=== PATIENT | female | born 1950 | race Caucasian/White ===

== ENCOUNTER 2018-02-26 18:03 | Emergency (ER) | payer BC ==
[~2018-02-26] VITALS: Ht 167.6 cm; Wt 66.7 kg
[~2018-02-26 18:03] MED LIST: MULT-506 PO; PANT40TA PO; PRMVC
[2018-02-26 18:07] VITALS: TEMP 36.7; Ht 167.6 cm; Wt 66.7 kg
[2018-02-26] MEDS ORDERED: LIDOCAINE/EPINEPHRINE 1% 20 ML VIAL INFIL ONE (18:45)
--- NOTE | 2018-02-26 19:24 | DIAGNOSTIC IMAGING REPORT ---
HEAD CT NONCONTRAST CT DOSE: 537.48 mGy.cm HISTORY: head injury TECHNIQUE: Multiaxial CT images of the head were performed without the use of intravenous contrast. Automated exposure control was utilized for this study. A dose lowering technique was utilized adhering to the principles of ALARA. Comparison: None. Findings: The paranasal sinuses and mastoid air cells are clear. The calvarium and skull base are intact. There is no mass, hematoma, midline shift, acute infarct. White matter hypodensity is nonspecific but suggestive of microvascular ischemic change. The ventricles and sulci demonstrate mild age-related involutional changes. Frontal scalp laceration. Impression: No acute intracranial abnormality. Frontal scalp laceration. Electronically signed by: Juan Wolf M.D. 02/26/2018 7:23 PM Dictated Date/Time: 02/26/2018 7:20 PM
--- NOTE | 2018-02-26 20:47 | EMERGENCY ROOM VISIT NOTE ---
History First contact with patient: 18:14 Chief Complaint: LACERATION/CUT (SUT/DERMABOND) Stated Complaint: FOREHEAD LACERATION Nursing Triage Summary: pt reports tripped on step in kitchen lac to forehead History of Present Illness The patient is a 68 year old female who presents to the Emergency Room with complaints of a laceration to her forehead. The patient states that she was walking out of the kitchen and tripped and turned her ankle, causing her to fall. She struck her head on the edge of a table. There was no loss of consciousness. She denies headache, lightheadedness, dizziness or vomiting. She does state that she feels a little "woozy" at this time. Her tetanus is up- to-date. She sustained a laceration to the forehead. She reports pain in the area of the laceration which is sharp and rated a 4/10. She does not take any anticoagulants. Review of Systems A complete 10 point review of systems was reviewed with the patient with pertinent positives and negatives as per history of present illness. All else were negative. Past Medical/Surgical History Medical Problems: (1) No significant active problems Social History Smoking Status: Never Smoker Alcohol Use: occasionally Housing Status: lives with family Current/Historical Medications Scheduled Multivitamin (Multivitamin), 1 TAB PO DAILY Pantoprazole (Protonix), 40 MG PO DAILY Miscellaneous Medications Estrogens, Conjugated Vag (Premarin Vag *) Physical Exam Vital Signs Date Time Temp Pulse Resp B/P (MAP) Pulse Ox O2 Delivery O2 Flow Rate FiO2 02/26/18 20:49 76 18 161/115 96 Room Air 02/26/18 18:07 36.7 85 20 200/107 100 Room Air Physical Exam VITALS: Vitals are noted on the nurse's note and reviewed by myself. Hypertensive. GENERAL: This is a 68-year-old female, in no acute distress, nondiaphoretic, well-developed well-nourished. SKIN: There is a 3.5 cm laceration to the center of the forehead. There is mild oozing bleeding from the wound. HEAD: Laceration as noted above. Otherwise normocephalic atraumatic. EARS: External auditory canals clear, tympanic membranes pearly grier without erythema or effusion bilaterally. No hemotympanum. EYES: Pupils equal round and reactive to light and accommodation. Extraocular movements intact. MOUTH: Mucous membranes moist. NECK: Supple without nuchal rigidity. Cervical spine is nontender. HEART: Regular rate and rhythm without murmurs gallops or rubs. LUNGS: Clear to auscultation bilaterally without wheezes, rales or rhonchi. MUSCULOSKELETAL: Strength 5/5 throughout. NEURO: Patient was alert and oriented to person place and time. No focal neurological deficits. Medical Decision & Procedures ER Provider Diagnostic Interpretation: HEAD CT NONCONTRAST CT DOSE: 537.48 mGy.cm HISTORY: head injury TECHNIQUE: Multiaxial CT images of the head were performed without the use of intravenous contrast. Automated exposure control was utilized for this study. A dose lowering technique was utilized adhering to the principles of ALARA. Comparison: None. Findings: The paranasal sinuses and mastoid air cells are clear. The calvarium and skull base are intact. There is no mass, hematoma, midline shift, acute infarct. White matter hypodensity is nonspecific but suggestive of microvascular ischemic change. The ventricles and sulci demonstrate mild age-related involutional changes. Frontal scalp laceration. Impression: No acute intracranial abnormality. Frontal scalp laceration. Procedure Verbal consent was obtained to perform the procedure. Using sterile technique the wound was cleaned with Betadine. The area was sterilely draped. 4 ml of 1 % buffered lidocaine with epinephrine was used to anesthetize the forehead laceration. Once the patient was anesthetized, the wound was copiously irrigated under pressure with sterile saline. The wound was explored and there were no deep structures injured such as tendons, bone, or significant blood vessels. The laceration was repaired using 10 simple interrupted 6-0 nylon sutures with the wound edges being well approximated. The patient tolerated the procedure well. Hemostasis was achieved. The area was cleaned with sterile saline and dressed with bacitracin ointment and bandage. Medical Decision Differential diagnosis includes concussion, epidural hematoma, subdural hematoma , subarachnoid hemorrhage, among others. The patient was evaluated as above. CT of the head was performed and was negative. Laceration repair was performed as noted in the procedure section as above. Wound care instructions were discussed with the patient. She will follow-up with her PCP. Patient was hypertensive throughout the day today, most likely situational but was advised to follow-up this week for blood pressure recheck. She verbalized understanding of my assessment and treatment plan and was discharged home in good condition. The patient was independently evaluated by Dr. Puga, ED attending physician, who agreed with my assessment and treatment plan. Head Trauma GCS Score: 15 Medication Reconcilliation Current Medication List: was personally reviewed by me Blood Pressure Screening Patient's blood pressure: Elevated blood pressure Blood pressure disposition: Referred to PCP Impression Primary Impression: Facial laceration Additional Impression: Closed head injury Departure Information Dispostion Home / Self-Care Condition GOOD Referrals Ramiro Alberto D.O. (PCP) Patient Instructions My [facility] Additional Instructions You have received 10 sutures on your forehead. These sutures are NOT dissolvable and WILL need to be removed by a health care provider in 5-7 days. You can return to the Emergency Department or contact your Primary Care Provider to have the sutures removed. Proper wound care is essential for adequate wound healing and infection prevention. You can shower and clean the wound with soap and water. Do not scour over the wound, pat dry with a towel. Do not submerse the wound (i.e. bathe or dish wash) until the sutures have been removed. You can use an antibiotic ointment with a dressing over the wound for the next 3-4 days. After this time you may leave the wound dry and open to the air. If crust develops over the wound you can use a Q-tip to apply a 1:1 peroxide:water solution to clean the wound. Look for signs of infection of the wound including: increased pain, swelling, foul discharge, streaking, or increased temperature. If any of these are noticed you should return to the Emergency Department for further assessment and treatment. As with any laceration you may have received nerve damage to the surrounding tissues. This damage may or may not be permanent. You should keep the area covered with sunscreen for the first 6 months to 1 year when at risk for exposure to help minimize scarring. You can also use scar reducing creams or Vitamin E oil to help minimize scarring. For pain control, you can use the following [id number] medicines (if >12 yo): - Regular strength (325mg/tab) Tylenol (acetaminophen) 2 tabs every 4-6 hours as needed. Do not exceed 12 tablets in a 24 hour period. Avoid taking more than 4 grams (4000 mg) of Tylenol per day. This includes any other sources of acetaminophen you may take on a regular basis. - Regular strength (200 mg/tab) Advil (ibuprofen) 1-2 tabs every 4-6 hours as needed. Do not exceed a dose of 3200 mg per day. Return to the emergency department if your symptoms worsen despite treatment course outlined above. Problem Qualifiers Primary Impression: Facial laceration Encounter type: initial encounter Qualified Codes: S01.81XA - Laceration without foreign body of other part of head, initial encounter Additional Impression: Closed head injury Encounter type: initial encounter Qualified Codes: S09.90XA - Unspecified injury of head, initial encounter
[2018-02-26 20:49] VITALS: BP 161/115; PULSE 76; O2SAT 96
== END 2018-02-26 20:59 | disposition home or self-care (01) ==
LOC: C.EDB 18:04 → C.EDD 20:59
DX: S01.81XA Laceration without foreign body of other part of head, initial encounter (principal); W19.XXXA Unspecified fall, initial encounter; W22.8XXA Striking against or struck by other objects, initial encounter; R03.0 Elevated blood-pressure reading, without diagnosis of hypertension; R40.2412 Glasgow coma scale score 13-15, at arrival to emergency department

== ENCOUNTER 2024-01-25 17:08 | Inpatient (IN) ==
[2024-01-25 17:13] LABS: Partial Thromboplastin Ratio 0.9; Partial Thromboplastin Time 25 Seconds (21-31); Prothrombin Time 11.2 Seconds (9.0-12.0)
[2024-01-25 17:16] LABS: Basophils # (auto) 0.05 K/uL (0.00-0.20); Basophils % (auto) 0.6 %; Eosinophils # (auto) 0.05 K/uL (0.00-0.50); Eosinophils % (auto) 0.6 %; Hematocrit (blood only) 38.1 % (37.0-47.0); Hemoglobin 13.3 g/dl (12.0-16.0); Immature Granulocytes # (auto) 0.03 K/uL (0.01-0.20); Immature Granulocytes % (auto) 0.3 %; Lymphocytes % (auto) 27.5 %; Mean Corpuscular Hemoglobin 29.6 pg (25.0-34.0); Mean Corpuscular Hgb Conc 34.9 g/dL (32.0-36.0); Mean Corpuscular Volume 84.7 fL (80.0-100.0); Mean Platelet Volume 10.6 fL (9.4-12.4); Monocytes % (auto) 6.6 %; Neutrophils # (auto) 5.86 K/uL (1.40-6.50); Neutrophils % (auto) 64.4 %; Platelet Count 329 K/uL (130-400); RDW Coefficient of Variation 11.9 % (11.5-14.5); RDW Standard Deviation 36.1 fL (36.4-46.3); White Blood Count 9.09 K/ul (4.8-10.8)
--- NOTE | 2024-01-25 17:27 | XRay Report ---
PORTABLE AP CHEST RADIOGRAPH CLINICAL HISTORY: Chest pain. COMPARISON STUDY: Chest CT performed earlier today. FINDINGS: Lung volumes are normal. There is no consolidation. No pneumothorax or pleural effusion is present. There is subtle interstitial thickening without overt pulmonary edema. Cardiac size is madhuri l. Mediastinal contours are normal. IMPRESSION: No acute cardiopulmonary findings. ACT 112: Negative or not required by law. Electronically signed by: Antonio Menendez M.D. 01/25/2024 4:23 PM
[2024-01-25] MEDS: AMIODARONE HCL INJ 50 MG/ML 3 ML VIAL IV ONE (17:32)
[2024-01-25] MEDS: AMIODARONE 150MG / 100ML D5W IV ONE (17:33)
[2024-01-25] MEDS: MAGNESIUM SULFATE 1GM / D5W BAG IV ONE (17:33)
[2024-01-25 17:34] LABS: Albumin Level 3.6 gm/dl (3.4-5.0); Blood Urea Nitrogen 18 mg/dl (6-23); Calcium 8.8 mg/dl (8.6-10.3); Chloride 109 mmol/L (98-107); Glucose 155 mg/dl (70-99(Fasting)); Potassium 3.6 mmol/L (3.5-5.1); Sodium 139 mmol/L (136-145); Troponin I High Sensitivity 10.1 pg/ml (0-14)
[2024-01-25] MEDS: OPTIRAY 350 500ml IV ONE (17:36)
[2024-01-25] MEDS: AMIODARONE 360MG / 200ML D5W IV ONE (17:37)
--- NOTE | 2024-01-25 17:42 | History & Physical Report ---
Date of Service January 25, 2024 Assessment & Plan (1) Atrial fibrillation with RVR: Plan: This is a 73-year-old female with PMH of hyperlipidemia, GERD, recent palpitations with outpatient ZIO monitoring demonstrating frequent runs of paroxysmal supraventricular tachycardia who presents with lightheadedness and found to have atrial fibrillation with RVR. Recently seen by Dr. Hopper in clinic, ZIO monitoring demonstrating frequent runs of paroxysmal supraventricular tachycardia, started on Lopressor 25mg PO BID last week Presenting with HR in 110-150s, initial ECG showing atrial fibrillation with rvr CXR without acute cardiopulmonary abnormality, unremarkable CTA chest of the abdominal aorta and its major branches. No acute infectious or inflammatory findings are identified in the abdomen or pelvis Was hypotensive with SBP in 70-80s initially Given amiodarone bolus and drip with improved HR and clinical status HR in 110s during evaluation Continue amio drip Monitor on tele Obtain 2D echo TSH WNL last month, Mag pending Routine cardiology consult Anticoagulate with IV heparin, chadvasc score of 3 given gender and age Repleting Mg and K with goal to keep >2 and >4 respectively (2) GERD (gastroesophageal reflux disease): Plan: Chronic, stable. Continue PPI, H2 dahlia (3) Abnormal CT of the abdomen: Plan: CTA abd/pelvis showing a 8.5 cm heterogeneous mass centered in the right perineal soft tissues as detailed above. This causes mass effect on the adjacent vagina, and significantly effaces/displaces the adjacent rectum/anus. Neoplasm is the diagnosis of exclusion Routine obgyn consult placed (4) HLD (hyperlipidemia): Plan: Chronic, stable. Continue statin DVT Ppx: IV heparin Code status: FULL PCP: Jessica Dispo: admitted to PCU Patient seen in collaboration with Dr. Moreno. Please see addendum. I spent a total of 75 minutes coordinating, documenting, and providing care for this patient excluding time spent in the performance of separately billed services. History of Present Illness Chief Complaint: Symptomatic tachycardia Primary Care Provider: Dimas Lopez MD This is a 73-year-old female with PMH of hyperlipidemia, GERD, recent palpitations and other medical problems listed below who presents with episode of tachycardia earlier today. Has been struggling with intermittent episodes of tachycardia over the past 9 months and was seen by cardiology on 01/16 with outpatient ZIO monitoring demonstrating frequent runs of paroxysmal supraventricular tachycardia. States she has been on Lopressor 25 mg twice daily for the past week and had an echo ordered but the study has not yet been done. Had an episode last Monday where her heart was racing but has felt back to baseline since then until around lunchtime today, when she was in her kitchen making lunch and became dizzy. Went to lie down which did not relieve symptoms and started to feel generally weak and unable to catch her breath. brought her in to ED for further evaluation and while in waiting room, developed nausea and near syncope. Was evaluated around this time with EKG showing A-fib with RVR at 117 bpm. Given amiodarone bolus and started on drip with improved clinical status. Now feeling much better and able to catch her breath. Feelings of palpitations have improve and nausea resolved. No F/C, headache, CP, vomiting, abdominal pain, dysuria, diarrhea or constipation. Recent TSH within range at 1.49 on 12/21/23. Allergies Allergy/AdvReac Type Severity Reaction Status Date / Time codeine Allergy Unknown CAN'T Verified 01/25/24 17:59 REMEMBER Home Medications Medication Instructions Recorded Confirmed Type Prolia 60 mg subcut Q6M 01/25/24 01/25/24 History calcium carbonate 600 mg-vitamin 1 tab PO DAILY 01/25/24 01/25/24 History D3 10 mcg (400 unit) tablet (Calcium 600 + D(3)) cholecalciferol (vitamin D3) 25 25 mcg PO DAILY 01/25/24 01/25/24 History mcg (1,000 unit) chewable tablet (Vitamin D3) famotidine 20 mg tablet 20 mg PO HS 01/25/24 01/25/24 History metoprolol tartrate 25 mg tablet 25 mg PO BID 01/25/24 01/25/24 History multivitamin 1 tab PO DAILY 01/25/24 01/25/24 History pantoprazole 40 mg tablet,delayed 40 mg PO DAILY 01/25/24 01/25/24 History release rosuvastatin 5 mg tablet 5 mg PO DAILY 01/25/24 01/25/24 History Past Med/Surg History Medical History (Updated 01/25/24 @ 19:33 by Anna Mejía MD) GERD (gastroesophageal reflux disease) HLD (hyperlipidemia) Surgical History (Updated 01/25/24 @ 17:46 by Lucero Castillo PA-C) H/O: hysterectomy Family History (Updated 01/25/24 @ 17:47 by Lucero Castillo PA-C) Other Cancer Diabetes Social History (Updated 01/25/24 @ 17:47 by Lucero Castillo PA-C) Smoking Status: Never smoker Hx Alcohol Use: No Hx Substance Use: No Review of Systems Review of Systems: At least ten systems reviewed and negative except as noted in the HPI. Physical Exam Physical Exam: Please see Dr. Moreno' addendum for physical exam. Results & Data Results & Data Laboratory Results Short CBC 01/25/24 Range/Units 14:16 WBC 9.09 (4.8-10.8) K/ul Hgb 13.3 (12.0-16.0) g/dl Hct 38.1 (37.0-47.0) % Plt Count 329 (130-400) K/uL BMP 01/25/24 14:16 Sodium 139 Potassium 3.6 Chloride 109 H Carbon Dioxide 16 L BUN 18 Creatinine 0.88 Glucose 155 H Calcium 8.8 Liver Function 01/25/24 Range/Units 14:16 Total Bilirubin 0.5 (0.2-1.0) mg/dl AST 23 (13-39) U/L ALT 22 (7-52) U/L Alkaline Phosphatase 61 (34-104) U/L Albumin 3.6 (3.4-5.0) gm/dl Diagnostic Findings Abdomen/Pelvis CTA 01/25/24 00:00 Mai Quintana CTA abd/pel CT ANGIOGRAM OF THE ABDOMEN AND PELVIS CLINICAL HISTORY: Generalized weakness. COMPARISON STUDY: No priors. TECHNIQUE: Following the IV administration of 114 cc of Optiray 320, CT angiogram of the abdomen and pelvis was performed from the lung bases the proximal femora. Images are reviewed in the axial, sagittal, and coronal planes. 3-D MIPS images are created and assessed. IV contrast was administered without complication. A dose lowering technique was utilized adhering to the principles of ALARA. The examination is degraded by streak artifact from the arms which could not be elevated above the abdomen. FINDINGS: Lower chest: The heart is normal in size and without pericardial effusion. There is bibasilar scarring/atelectasis. The lung bases are otherwise clear. Liver: The contrast-enhanced liver is normal in size, contour, and attenuation. There is no intrahepatic biliary ductal dilatation. Gallbladder: Unremarkable. Spleen: Normal in size and attenuation noting heterogeneous arterial phase enhancement. Pancreas: Unremarkable. Adrenal glands: Unremarkable. Kidneys: The contrast enhanced kidneys are normal in size and without hydronephrosis. The kidneys enhance symmetrically. A retroaortic left renal vein is incidentally noted. Abdominal aorta and iliac arteries: The abdominal aorta is normal in course and caliber noting mild to moderate atherosclerotic calcification. The abdominal aorta is widely patent. No dissection is seen. The iliac arteries are widely patent bilaterally. Major branches of the abdominal aorta: The celiac trunk, superior mesenteric, and inferior mesenteric arteries are widely patent. Hepatic arterial anatomy is conventional. The splenic artery is patent. Single bilateral renal arteries are widely patent. Bowel: There is mild to moderate colonic diverticulosis without CT evidence of acute diverticulitis. No bowel obstruction is seen.. The appendix is well- visualized and normal. Peritoneum: There is no intraperitoneal free air or abdominal ascites. Lymphadenopathy: None. Pelvic viscera: The bladder is normal as visualized. The uterus is surgically absent. There is an approximately 8 x 8.5 x 6.5 cm soft tissue mass centered in the right perineum seen on axial image #384. This causes anterior displacement of the vagina, and also causes mass effect on the adjacent rectum/anus. Skeletal structures: The skeletal structures are osteopenic. Mild lumbosacral spondylosis is observed. No destructive bony lesions are seen. IMPRESSION: 1. Unremarkable CT angiogram of the abdominal aorta and its major branches. 2. No acute infectious or inflammatory findings are identified in the abdomen or pelvis. 3. There is approximately 8.5 cm heterogeneous mass centered in the right perineal soft tissues as detailed above. This causes mass effect on the adjacent vagina, and significantly effaces/displaces the adjacent rectum/anus. Neoplasm is the diagnosis of exclusion. Oncological follow-up will be required. 4. Additional findings as above. ACT 112: Positive. There are findings on this exam that require communication between the performing entity and the patient following Patient Test Result Information Act ([place] Act 112) guidelines. Electronically signed by: Zana Choi M.D. 01/25/2024 4:05 PM Chest CTA 01/25/24 00:00 CHEST CTA for AORTIC DISSECTION CT DOSE: HISTORY: Chest and back pain. Weakness. TECHNIQUE: Multiaxial CT images of the chest were performed both before and after the intravenous administration of contrast to evaluate the aorta. 3D/MIP images were also obtained. Sagittal and coronal reformations were also reviewed. A dose lowering technique was utilized adhering to the principles of ALARA. COMPARISON STUDY: None. FINDINGS: Noncontrast imaging through the chest shows no evidence for an intramural hematoma within the thoracic aorta. The thoracic aorta is normal in course and caliber with no evidence for a dissection. The main pulmonary arteries are patent. The heart is mildly enlarged. No pleural or pericardial effusions. There is a 1 cm left thyroid nodule. This does not meet CT criteria for follow-up. Abdominal structures will be reported on the same day abdomen and pelvis CT. Normal caliber esophagus. No mediastinal or hilar lymphadenopathy. Minimal anterior wedging within the mid thoracic spine vertebral body which is likely chronic. No acute fractures identified within the chest. No pneumothorax. The central airways are patent. Mild dependent changes seen within the lungs posteriorly. No focal lung consolidations to suggest a pneumonia. No evidence for pulmonary edema. IMPRESSION: No evidence for an aortic dissection. ACT 112: Negative or not required by law. Electronically signed by: Juan Wolf M.D. 01/25/2024 4:07 PM Chest X-Ray 01/25/24 00:00 PORTABLE AP CHEST RADIOGRAPH CLINICAL HISTORY: Chest pain. COMPARISON STUDY: Chest CT performed earlier today. FINDINGS: Lung volumes are normal. There is no consolidation. No pneumothorax or pleural effusion is present. There is subtle interstitial thickening without overt pulmonary edema. Cardiac size is normal. Mediastinal contours are normal. IMPRESSION: No acute cardiopulmonary findings. ACT 112: Negative or not required by law. Electronically signed by: Antonio Menendez M.D. 01/25/2024 4:23 PM Supervising Physician Co-Signing Physician Notes I have seen and discussed the case with the collaborating advanced practitioner. I agree with the above H&P. I have reviewed and confirmed the patients medical history, the findings on physical examination, and the patients diagnosis and treatment plan with Jonathan LUA and agree with the information documented. In short, Ms Quintana is a 73 year old woman with history of HLD, GERD who is admitted for atrial fibrillation with RVR. Patient hypotensive on arrival to 70s with rates in 160s-180s, responded to amio bolus. Recently evaluated as op for palpitations, started on metoprolol 25mg BID; ZIO patch with SVT. Patient reports feeling much improved since arrival and denies any acute concerns on exam after amiodarone has been administered. Denies any recent illness (URI x 3 weeks earlier) Active--walks 1-3 miles daily. Nonsmoker. GENERAL APPEARANCE: AxOx4, generally well-appearing female, no acute distress. HEENT: NC, AT. MMM. EOMI, clear conjunctiva, oropharynx clear. NECK: Supple without lymphadenopathy. No stiffness or restricted ROM. HEART: irregularly irregular rates in 110s-130s on exam LUNGS: CTAB, moving air well. No crackles or wheezes are heard. ABDOMEN: Soft, nontender, nondistended with good bowel sounds heard. BACK: No CVAT, no obvious deformity. EXTREMITIES: Without cyanosis, clubbing or edema. NEUROLOGICAL: Grossly nonfocal. Alert and oriented, moving all 4 extremities. CN not formally tested but appear grossly intact. Skin: Warm and dry without any rash. #Paroxsymal SVT/Atrial Fibrillation with RVR -Amiodarone drip at this time PCU admission Cards consult Start heparin 2/2 [id number] 3 Age/Female ECHO Rest of plan as above Metoprolol continue, room to titrate per cards TSH in am (normal in 12/2022), low suspicion for infection, lyme serology ordered for am Rest of plan as above I spent a total of 35 minutes coordinating, documenting, and providing care for this patient excluding time spent in the performance of separately billed services. All of the aforementioned completed outside of collaborating with the assigned advanced practitioner for a full treatment plan. I have reviewed the advanced practitioner's documentation, and I agree with, and take responsibility for the plan of care
--- NOTE | 2024-01-25 17:42 | CT Scan Report ---
CHEST CTA for AORTIC DISSECTION CT DOSE: HISTORY: Chest and back pain. Weakness. TECHNIQUE: Multiaxial CT images of the chest were performed both before and after the intravenous adm inistration of contrast to evaluate the aorta. 3D/MIP images were also obtained. Sagittal and coronal reformations were also reviewed. A dose lowering technique was utilized adhering to the principles of ALARA. COMPARISON STUDY: None. FINDINGS: Noncontrast imaging through the chest shows no evidence for an intramural hematoma within t he thoracic aorta. The thoracic aorta is normal in course and caliber with no evidence for a dissecti on. The main pulmonary arteries are patent. The heart is mildly enlarged. No pleural or pericardial e ffusions. There is a 1 cm left thyroid nodule. This does not meet CT criteria for follow-up. Abdomina l structures will be reported on the same day abdomen and pelvis CT. Normal caliber esophagus. No med iastinal or hilar lymphadenopathy. Minimal anterior wedging within the mid thoracic spine vertebral b nicole which is likely chronic. No acute fractures identified within the chest. No pneumothorax. The lory tral airways are patent. Mild dependent changes seen within the lungs posteriorly. No focal lung cons olidations to suggest a pneumonia. No evidence for pulmonary edema. IMPRESSION: No evidence for an aortic dissection. ACT 112: Negative or not required by law. Electronically signed by: Juan Wolf M.D. 01/25/2024 4:07 PM
[2024-01-25 18:20] LABS: Anion Gap 15 (3-11); Bilirubin,Total 0.4 mg/dl (0.2-1.0); Carbon Dioxide 15 mmol/L (21-32); Magnesium 1.8 mg/dl (1.7-2.4)
[2024-01-25 18:25] LABS: Alanine Aminotransferase 23 U/L (7-52); Albumin Globulin Ratio 1.5 (0.9-2); Alkaline Phosphatase 60 U/L (34-104); Aspartate Aminotransferase 25 U/L (13-39); BUN Creatinine Ratio 19.8 (10-20); Est GFR (African American) 71.5 ml/min; Est GFR (Non-African American) 61.7 ml/min; Globulin 2.4 gm/dl (2.5-4.0)
[2024-01-25] MEDS ORDERED: Heparin IV Adult Wt-Based Standard *NO* INITIAL Bolus Protocol IV SCH (18:46)
--- NOTE | 2024-01-25 18:54 | Emergency Department Note ---
Impression & Plan Atrial fibrillation with RVR, Chest pain ED Provider Note NAME: KAREN QUINTANA AGE: 73 SEX: F : 1950 ARRIVES VIA: Walk-In INFORMANT: Patient, ED PROVIDER(S): Anna Mejía MD CHIEF COMPLAINT:Palpitations, confusion HPI: This is a 73-year-old female with history of arrhythmia, GERD presenting for palpitations and confusion. Patient has had an episode that began around 11:30 AM. Today feeling her heart racing. She then presented here. Patient with her who provides most of the history as patient is currently confused. States that she has had previous episodes of palpitations and was started on metoprolol over the past 3 days. She never had an episode this severe. She is currently diaphoretic, confused and complaining of chest palpitations, and diarrhea. ROS: See above HPI for pertinent positives & negatives. A total of 10 systems reviewed and were otherwise negative. PAST MEDICAL HISTORY: See Below PAST SURGICAL HISTORY: See Below FAMILY HISTORY: See Below SOCIAL HISTORY: See Below HOME MEDICATIONS: See Below ALLERGIES: See Below VITALS: See Below PHYSICAL EXAMINATION: General: Diaphoretic, pale Head: Normocephalic and atraumatic Eyes: Normal inspection, extraocular muscles intact Ear, nose, throat: Normal external exam Neck: Normal range of motion Respiratory: lungs clear to auscultation bilaterally Cardiovascular: Irregularly irregular GI: soft, nontender, no guarding or rebound Extremities: nontender, moves all extremities, 2+ pulses all extremity Neuro: Awake, no focal deficits, Skin: Warm, dry, and intact MEDICAL DECISION MAKING: This is a 73-year-old female with history of arrhythmia, GERD presented with palpitations/confusion. -Able to take outside records which does reveal patient possible has a paroxysmal SVT -Currently patient is A-fib RVR. She is acutely-ill, in extremis. Pale, diaphoretic, hypotensive and tachycardic -Discussed there is a have to get 2 large-bore IVs placed in the patient. Patient placed on crash cart, with pads placed -Patient given 2 L normal saline run wide open -Discussed with about risks and benefits of electrocardioversion. Current symptoms started 1130 patient has had episodes of palpitations the past few days including on Monday, 2 days ago. -With unclear history of initial atrial fibrillation, consider thromboembolic risk at this time -Patient blood pressure is improving after fluid resuscitation. Now 90s/100 systolic. Due to concern of thrombolic risk, will do amiodarone. After a bolus of amiodarone, patient's heart rate is significantly decreasing from 160s down to 70s-100s. Patient blood pressure rising and now 110s systolic. -Patient appearing more comfortable, less diaphoretic and pale -At this time will defer electrocardioversion -Patient currently on amiodarone drip at this time, canceled order for etomidate -Patient reassessed multiple times and after amiodarone drip, now back to her baseline mental status, appearing well, talking on the phone, no longer confused or lethargic -Patient taken to CT scan to rule out PE/dissection due to her significant pain, confusion -CTs of the chest abdomen pelvis revealed n under Dr. Helen Moreno o acute process to explain current symptoms -Patient admitted to hospitalist service for A-fib RVR on amiodarone Differential diagnosis: A-fib with RVR, PE, dissection ER treatment provided: See below Diagnostics interpreted by me: ECG: ECG independently interpreted by me with A-fib with RVR, rate of 104, normal axis, normal RI, normal QRS, normal QTc, no ST segment elevations consistent with STEMI criteria occasional PVC Cardiac Monitoring: An order was placed for continuous cardiac monitoring. The monitor shows a rate of 160 with atrial fibrillation rhythm. Laboratory studies: As stated above and show below. Imaging studies: See below. Critical Care Note: I have personally spent 60 minutes of critical care time in the direct management of this patient. This includes bedside care, interpretation of diagnostic studies, and testing, discussion with consultants, patient, and family members, and other required patient management activities. This 60 minutes is in excess of all separately billable procedures. Past Med/Surg History Medical History (Updated 01/25/24 @ 19:33 by Anna Mejía MD) GERD (gastroesophageal reflux disease) HLD (hyperlipidemia) Surgical History (Updated 01/25/24 @ 17:46 by Lucero Castillo PA-C) H/O: hysterectomy Family History (Updated 01/25/24 @ 17:47 by Lucero Castillo PA-C) Other Cancer Diabetes Social History (Updated 01/25/24 @ 17:47 by Lucero Castillo PA-C) Smoking Status: Never smoker Hx Alcohol Use: No Hx Substance Use: No Allergies Allergies Allergy/AdvReac Type Severity Reaction Status Date / Time codeine Allergy Unknown CAN'T Verified 01/25/24 17:59 REMEMBER Home Meds Home Medications Medication Instructions Recorded Confirmed Prolia 60 mg subcut Q6M 01/25/24 01/25/24 calcium carbonate 600 mg-vitamin 1 tab PO DAILY 01/25/24 01/25/24 D3 10 mcg (400 unit) tablet (Calcium 600 + D(3)) cholecalciferol (vitamin D3) 25 25 mcg PO DAILY 01/25/24 01/25/24 mcg (1,000 unit) chewable tablet (Vitamin D3) famotidine 20 mg tablet 20 mg PO HS 01/25/24 01/25/24 metoprolol tartrate 25 mg tablet 25 mg PO BID 01/25/24 01/25/24 multivitamin 1 tab PO DAILY 01/25/24 01/25/24 pantoprazole 40 mg tablet,delayed 40 mg PO DAILY 01/25/24 01/25/24 release rosuvastatin 5 mg tablet 5 mg PO DAILY 01/25/24 01/25/24 Results & Data (ED) Vital Signs Vital Signs - 24 hr 01/25/24 18:08 Pulse Rate 102 H Laboratory Data 01/25/24 14:16 01/25/24 14:16 Lab Results 01/25/24 Range/Units 14:16 WBC 9.09 (4.8-10.8) K/ul RBC 4.50 (4.20-5.40) M/uL Hgb 13.3 (12.0-16.0) g/dl Hct 38.1 (37.0-47.0) % MCV 84.7 (80.0-100.0) fL MCH 29.6 (25.0-34.0) pg MCHC 34.9 (32.0-36.0) g/dL RDW Std Deviation 36.1 L (36.4-46.3) fL RDW Coeff of Maggie 11.9 (11.5-14.5) % Plt Count 329 (130-400) K/uL MPV 10.6 (9.4-12.4) fL Immature Gran % (Auto) 0.3 % Neut % (Auto) 64.4 % Lymph % (Auto) 27.5 % Morehouse % (Auto) 6.6 % Eos % (Auto) 0.6 % Baso % (Auto) 0.6 % Neut # (Auto) 5.86 (1.40-6.50) K/uL Lymph # (Auto) 2.50 (1.20-3.40) K/uL Morehouse # (Auto) 0.60 H (0.11-0.59) K/uL Eos # (Auto) 0.05 (0.00-0.50) K/uL Baso # (Auto) 0.05 (0.00-0.20) K/uL Immature Gran # (Auto) 0.03 (0.01-0.20) K/uL PT 11.2 (9.0-12.0) Seconds INR 1.0 (0.9-1.1) APTT 25 (21-31) Seconds PTT Ratio 0.9 Sodium 139 (136-145) mmol/L Potassium 3.6 (3.5-5.1) mmol/L Chloride 109 H (98-107) mmol/L Carbon Dioxide 15 L (21-32) mmol/L Anion Gap 15 H (3-11) BUN 18 (6-23) mg/dl Creatinine 0.91 (0.6-1.2) mg/dl Est Cr Clr Drug Dosing Not Reportable Est GFR ( Amer) 71.5 ml/min Est GFR (Non-Af Amer) 61.7 ml/min BUN/Creatinine Ratio 19.8 (10-20) Glucose 155 H (70-99(Fasting)) mg/dl Calcium 8.8 (8.6-10.3) mg/dl Magnesium 1.8 (1.7-2.4) mg/dl Total Bilirubin 0.4 (0.2-1.0) mg/dl AST 25 (13-39) U/L ALT 23 (7-52) U/L Alkaline Phosphatase 60 (34-104) U/L Troponin I High Sens 10.1 (0-14) pg/ml Total Protein 6.0 (6.0-8.3) gm/dl Albumin 3.6 (3.4-5.0) gm/dl Globulin 2.4 L (2.5-4.0) gm/dl Albumin/Globulin Ratio 1.5 (0.9-2) Administered Medications Discontinued Medications Amiodarone HCl/Dextrose (Amiodarone 150mg / 100ml D5w) Confirm Administered Dose 150 mg IV .STK-MED ONE Stop: 01/25/24 14:40 Last Admin: 01/25/24 17:33 Dose: 360 mg Documented By: KAILEE Co-signed By: JOSE MANUEL Amiodarone HCl/Dextrose (Amiodarone 360mg / 200ml D5w) Confirm Administered Dose 360 mg IV .STK-MED ONE Stop: 01/25/24 14:45 Last Admin: 01/25/24 17:37 Dose: 360 mg Documented By: KAILEE Co-signed By: JOSE MANUEL Amiodarone HCl (Amiodarone Hcl Inj 50 Mg/Ml 3 Ml Vial) Confirm Administered Dose 150 mg IV .STK-MED ONE Stop: 01/25/24 14:09 Last Admin: 01/25/24 17:32 Dose: 150 mg Documented By: KAILEE Co-signed By: JOSE MANUEL Ioversol (Optiray 350 500ml) 114 ml IV ONCE ONE Stop: 01/25/24 17:36 Last Admin: 01/25/24 17:36 Dose: 114 ml Documented By: SHAVONNE Magnesium Sulfate/Dextrose (Magnesium Sulfate 1gm / D5w Bag) Confirm Administered Dose 2 gm IV .ST-MED ONE Stop: 01/25/24 14:28 Last Admin: 01/25/24 17:33 Dose: 2 gm Documented By: KAILEE Imaging Data Radiologist's Impression: Abdomen/Pelvis CTA 01/25/24 00:00 Karen Quintana CTA abd/pel CT ANGIOGRAM OF THE ABDOMEN AND PELVIS CLINICAL HISTORY: Generalized weakness. COMPARISON STUDY: No priors. TECHNIQUE: Following the IV administration of 114 cc of Optiray 320, CT angiogram of the abdomen and pelvis was performed from the lung bases the proximal femora. Images are reviewed in the axial, sagittal, and coronal planes. 3-D MIPS images are created and assessed. IV contrast was administered without complication. A dose lowering technique was utilized adhering to the principles of ALARA. The examination is degraded by streak artifact from the arms which could not be elevated above the abdomen. FINDINGS: Lower chest: The heart is normal in size and without pericardial effusion. There is bibasilar scarring/atelectasis. The lung bases are otherwise clear. Liver: The contrast-enhanced liver is normal in size, contour, and attenuation. There is no intrahepatic biliary ductal dilatation. Gallbladder: Unremarkable. Spleen: Normal in size and attenuation noting heterogeneous arterial phase enhancement. Pancreas: Unremarkable. Adrenal glands: Unremarkable. Kidneys: The contrast enhanced kidneys are normal in size and without hydronephrosis. The kidneys enhance symmetrically. A retroaortic left renal vein is incidentally noted. Abdominal aorta and iliac arteries: The abdominal aorta is normal in course and caliber noting mild to moderate atherosclerotic calcification. The abdominal aorta is widely patent. No dissection is seen. The iliac arteries are widely patent bilaterally. Major branches of the abdominal aorta: The celiac trunk, superior mesenteric, and inferior mesenteric arteries are widely patent. Hepatic arterial anatomy is conventional. The splenic artery is patent. Single bilateral renal arteries are widely patent. Bowel: There is mild to moderate colonic diverticulosis without CT evidence of acute diverticulitis. No bowel obstruction is seen.. The appendix is well- visualized and normal. Peritoneum: There is no intraperitoneal free air or abdominal ascites. Lymphadenopathy: None. Pelvic viscera: The bladder is normal as visualized. The uterus is surgically absent. There is an approximately 8 x 8.5 x 6.5 cm soft tissue mass centered in the right perineum seen on axial image #384. This causes anterior displacement of the vagina, and also causes mass effect on the adjacent rectum/anus. Skeletal structures: The skeletal structures are osteopenic. Mild lumbosacral spondylosis is observed. No destructive bony lesions are seen. IMPRESSION: 1. Unremarkable CT angiogram of the abdominal aorta and its major branches. 2. No acute infectious or inflammatory findings are identified in the abdomen or pelvis. 3. There is approximately 8.5 cm heterogeneous mass centered in the right perineal soft tissues as detailed above. This causes mass effect on the adjacent vagina, and significantly effaces/displaces the adjacent rectum/anus. Neoplasm is the diagnosis of exclusion. Oncological follow-up will be required. 4. Additional findings as above. ACT 112: Positive. There are findings on this exam that require communication between the performing entity and the patient following Patient Test Result Information Act ([place] Act 112) guidelines. Electronically signed by: Zana Choi M.D. 01/25/2024 4:05 PM Chest CTA 01/25/24 00:00 CHEST CTA for AORTIC DISSECTION CT DOSE: HISTORY: Chest and back pain. Weakness. TECHNIQUE: Multiaxial CT images of the chest were performed both before and after the intravenous administration of contrast to evaluate the aorta. 3D/MIP images were also obtained. Sagittal and coronal reformations were also reviewed. A dose lowering technique was utilized adhering to the principles of ALARA. COMPARISON STUDY: None. FINDINGS: Noncontrast imaging through the chest shows no evidence for an intramural hematoma within the thoracic aorta. The thoracic aorta is normal in course and caliber with no evidence for a dissection. The main pulmonary arteries are patent. The heart is mildly enlarged. No pleural or pericardial effusions. There is a 1 cm left thyroid nodule. This does not meet CT criteria for follow-up. Abdominal structures will be reported on the same day abdomen and pelvis CT. Normal caliber esophagus. No mediastinal or hilar lymphadenopathy. Minimal anterior wedging within the mid thoracic spine vertebral body which is likely chronic. No acute fractures identified within the chest. No pneumothorax. The central airways are patent. Mild dependent changes seen within the lungs posteriorly. No focal lung consolidations to suggest a pneumonia. No evidence for pulmonary edema. IMPRESSION: No evidence for an aortic dissection. ACT 112: Negative or not required by law. Electronically signed by: Juan Wolf M.D. 01/25/2024 4:07 PM Chest X-Ray 01/25/24 00:00 PORTABLE AP CHEST RADIOGRAPH CLINICAL HISTORY: Chest pain. COMPARISON STUDY: Chest CT performed earlier today. FINDINGS: Lung volumes are normal. There is no consolidation. No pneumothorax or pleural effusion is present. There is subtle interstitial thickening without overt pulmonary edema. Cardiac size is normal. Mediastinal contours are normal. IMPRESSION: No acute cardiopulmonary findings. ACT 112: Negative or not required by law. Electronically signed by: Antonio Menendez M.D. 01/25/2024 4:23 PM Discharge Plan Visit Data Chief Complaint: Chest Pain Stated Complaint: CHEST PAIN ED Provider: Anna Mejía Discharge Problem: Atrial fibrillation with RVR, Chest pain Forms Stand Alone Forms: My [employer] Prescriptions Prescriptions: No Action multivitamin Tablet 1 tab PO DAILY famotidine 20 mg tablet 20 mg PO HS pantoprazole 40 mg Tablet,Delayed Release (Dr/Ec) 40 mg PO DAILY rosuvastatin 5 mg tablet 5 mg PO DAILY metoprolol tartrate 25 mg tablet 25 mg PO BID calcium carbonate-vitamin D3 [Calcium 600 + D(3)] 600 mg-10 mcg (400 unit) Tablet 1 tab PO DAILY cholecalciferol (vitamin D3) [Vitamin D3] 25 mcg (1,000 unit) Tablet,Chewable 25 mcg PO DAILY Prolia 60 mg subcut Q6M Referrals Referrals: Dimas Lopez MD [Primary Care Provider] -
[2024-01-25] MEDS: HEPARIN SODIUM/DEXTROSE 25,000 UNITS/500 ML BAG IV SCH (19:52)
[2024-01-25] MEDS: MAGNESIUM SULFATE / D5W 1 GM/100 ML BAG IV ONE (19:52)
[2024-01-25] MEDS: POTASSIUM CHLORIDE CRTAB 20 MEQ TABCR PO STA (19:52)
[2024-01-25] MEDS: FAMOTIDINE 20 MG TAB PO SCH (21:46)
[2024-01-25] MEDS ORDERED: ACETAMINOPHEN 325 MG TAB PO PRN (22:19)
[2024-01-25] MEDS ORDERED: ONDANSETRON INJ 2 MG/ML 2 ML VIAL IV PRN (22:19)
[2024-01-25] MEDS ORDERED: POLYETHYLENE (MIRALAX) 17 GM PACK PO PRN (22:19)
[2024-01-25] MEDS: METOPROLOL TARTRATE 25 MG TAB PO SCH (22:43)
[2024-01-26 05:56] LABS: Hematocrit (blood only) 42.3 % (37.0-47.0); Hemoglobin 14.5 g/dl (12.0-16.0); Mean Corpuscular Hgb Conc 34.3 g/dL (32.0-36.0); Mean Corpuscular Volume 87.4 fL (80.0-100.0); Mean Platelet Volume 10.5 fL (9.4-12.4); Platelet Count 300 K/uL (130-400); RDW Coefficient of Variation 12.1 % (11.5-14.5); RDW Standard Deviation 38.7 fL (36.4-46.3); Red Blood Count 4.84 M/uL (4.20-5.40); White Blood Count 13.03 K/ul (4.8-10.8)
--- NOTE | 2024-01-26 06:09 | Communication Note ---
Date of Service: January 26, 2024 Patient with early a.m. chest pain not relieved by nitroglycerin. Discomfort similar to indigestion at home as per patient EKG as per my interpretation rate 105, A-fib, normal axis, T wave abnormalities septal leads AP Atypical chest pain Facilitate antacid regimen Check troponin with a.m. blood work
[2024-01-26 06:10] LABS: Calcium 8.8 mg/dl (8.6-10.3); Creatinine Clr Calc Pharmacy 56.9 ml/min; Est GFR (African American) 83.6 ml/min; Est GFR (Non-African American) 72.1 ml/min; Potassium 3.8 mmol/L (3.5-5.1)
[2024-01-26] MEDS: NITROGLYCERIN SL 0.4 MG/TAB TAB SL STA (06:18)
[2024-01-26 06:25] LABS: Thyroid Stimulating Hormone 1.499 uIu/ml (0.300-4.500)
[2024-01-26 07:00] LABS: Troponin I High Sensitivity 336.3 pg/ml (0-14)
--- NOTE | 2024-01-26 07:30 | Hospitalist Progress Note ---
Date of Service January 26, 2024 Assessment & Plan (1) Atrial fibrillation with RVR: Plan: This is a 73-year-old female with PMH of hyperlipidemia, GERD, recent palpitations with outpatient ZIO monitoring demonstrating frequent runs of paroxysmal supraventricular tachycardia who presents with lightheadedness and found to have atrial fibrillation with RVR. Atrial fibrillation with RVR Recently seen by Dr. Hopper in clinic, ZIO monitoring demonstrating frequent runs of paroxysmal supraventricular tachycardia, started on Lopressor 25mg PO BID last week Presenting with HR in 110-150s, initial ECG showing atrial fibrillation with rvr CXR without acute cardiopulmonary abnormality, unremarkable CTA chest of the abdominal aorta and its major branches. No acute infectious or inflammatory findings are identified in the abdomen or pelvis Was hypotensive with SBP in 70-80s initially Given amiodarone bolus and drip with improved HR and clinical status HR in 110s during evaluation Continue amio drip Monitor on tele Obtain 2D echo TSH WNL last month, Mag pending Routine cardiology consult Anticoagulate with IV heparin, chadvasc score of 3 given gender and age Repleting Mg and K with goal to keep >2 and >4 respectively 01/25 Continue amiodarone drip, heparin drip Continue metoprolol 25 mg p.o. twice daily Possible cardioversion on Monday if patient does not convert to sinus rhythm through the Possible demand ischemia secondary to above Troponin 336 No chest pain (2) GERD (gastroesophageal reflux disease): Plan: Chronic, stable Continue PPI, H2 blockers (3) Abnormal CT of the abdomen: Plan: CTA abd/pelvis showing a 8.5 cm heterogeneous mass centered in the right perineal soft tissues as detailed above. This causes mass effect on the adjacent vagina, and significantly effaces/displaces the adjacent rectum/anus. Neoplasm is the diagnosis of exclusion Routine obgyn consult placed 01/25 Awaiting further recommendations from HYDRAULIC OPERATOR service (4) HLD (hyperlipidemia): Plan: Chronic, stable. Continue statin DVT Ppx: IV heparin Code status: FULL PCP: Jessica Dispo: Anticipate discharge to home when medically stable Admission and Anticipated Discharge Date Admission Date: January 25, 2024 Subjective Follow-up for A-fib, etc. Seen resting in bed, comfortable, not in distress States she feels okay overall No chest pain, palpitation, dizziness, shortness of breath No abdominal, pelvic pain No bleeding No other new symptoms Review of Systems Review of Systems: all noted and negative except for above Physical Exam Physical Exam: General- oriented x 3, not in distress, speaks in sentences with no effort or accessory muscle use Eyes- anicteric Neck- no JVD Lungs- clear breath sounds bilaterally, no rales/wheezes Heart- normal rate, irregularly irregular rhythm; no murmurs Abdomen- normal bowel sounds, nondistended, soft, nontender Extremities- no pretibial edema, no calf tenderness Neuro- alert, oriented x 3; no gross focal neurologic deficits Skin- warm & dry Results & Data Results & Data Vital Signs (Past 12 Hours) Vital Signs Temp Pulse Resp BP Pulse Ox O2 Del Method 01/26/24 05:51 99 H 18 133/85 98 Room Air 01/26/24 02:47 36.9 C 77 18 131/81 98 Room Air 01/25/24 22:52 36.6 C 98 H 18 122/71 98 Room Air 01/25/24 22:19 36.6 C 96 H 20 122/71 98 Room Air 01/25/24 20:57 100 H 16 119/68 98 01/25/24 19:34 113 H 16 137/101 H 96 Room Air
--- NOTE | 2024-01-26 08:09 | Cardiology Consultation ---
Date of Consultation January 26, 2024 Assessment & Plan (1) Atrial fibrillation with RVR: (2) Elevated troponin: Plan IMPRESSION 73 year old female with longstanding history of palpitations secondary to PSVT. Presented in new onset AFIB with RVR, highly symptomatic with hypotension, chest pain, and confusion. Symptom improvement with beta dahlia and amiodarone. EKG maintaining AFIB with borderline rate control. Elevated troponin in the setting of demand. Low likelihood for ACS. PLAN AFIB RVR: -Patient received IV amiodarone bolus in ED, but gtt was never started. Will start IV amiodarone now. Will give 1mg/min x6 hours then reduce to 0.5 mg/min continuous. Daily EKGs to assess QTC. -Continue metoprolol tartrate 25 mg BID -Continue Heparin gtt for stroke prevention. Chadsvasc score of 3 (age 1, female). -K goal of 4.0 and mag of 2.0-- replace as necessary. -Echo pending. -Continue to monitor on Tele. -Pending clinical course, consider DCCV. Case discussed with Dr. Hopper. Further recommendations pending his assessment/echo results. I spent a total of 60 minutes on the date of service in preparation, delivery, and documentation of the care provided to the patient excluding any time spent in the performance of separately billed services. LAURENCE Saenz Department of Cardiology, [facility] This chart was completed in part utilizing Speech Voice Recognition Software. Grammatical errors, random word insertions, pronoun errors, and incomplete sentences are an occasional consequence of this system due to software limitations, ambient noise, and hardware issues. Any formal questions or concern s about the content, text, or information contained within the body of this dictation should be directly addressed to the provider for clarification. Supervising Physician Co-Signing Physician Notes I have reviewed the advance practitioner's documentation, and I agree with, and take responsibility for the plan of care. 73-year-old female presented to the emergency department with symptomatic paroxysmal atrial fibrillation with rapid ventricular response. Heart rate improved and feeling better since admission. Received a bolus of IV amiodarone in the ER, however, IV infusion was not initiated. Denies chest discomfort or heaviness currently. Elevated high-sensitivity troponin noted. Bedside echocardiogram reveals borderline hyperdynamic LV function without regional wall motion abnormality. PE: VSS. General: NAD, awake alert and orient x 3. Heart: Irregular rhythm. Normal S1-S2. No murmur. Lungs: Clear bilateral, no rales, rhonchi, wheeze. Extremities: No edema. A/P: 73-year-old female admitted with paroxysmal atrial fibrillation and rapid ventricular response. Left ventricular systolic function borderline hyperdynamic at baseline. Findings similar to prior echocardiogram performed in 2015. Agree with IV amiodarone and intravenous heparin infusion at this time. Continue metoprolol tartrate 25 mg twice daily. Supplement electrolytes as indicated to maintain serum potassium greater than 4.0, and serum magnesium greater than 2.0. If patient does not convert to sinus rhythm with medical therapy over the weekend, consider external direct-current cardioversion on 01/29/2024. Findings and recommendations discussed with patient. She is agreeable to plan of care. Thank you for allow me to participate in the care of your patient. I spent a total of 30 minutes on the date of service in preparation, delivery, and documentation of the care provided to this patient, excluding any time spent in the performance of separately billed services. History of Present Illness Reason for Consultation: Atrial fibrillation with RVR Requesting Physician: Farhat Jacobson Attending Physician: Alexandr Hurley MD History of Present Illness 73-year-old female who presented to [facility] emergency department last evening due to tachy-palpitations that started at 12:15pm on 01/25/2024. In the emergency department she became confused, diaphoretic, and complained of chest discomfort. EKG/telemetry revealed atrial fibrillation with RVR. She was hypotensive. She was given 2 L of normal saline with mild improvement in her blood pressures, 90s to 100 systolic. She was also given a bolus of amiodarone lowering the heart rates from 160s to 70s-100s. Blood pressure improved with this. Emergent DCCV deferred. Amiodarone gtt was ordered but never started. CTA of the chest: No PE or dissection. Heparin gtt started. ([id number] or 3, age & female) Of note, patient recently reestablished with Dr. Hopper on 01/17/2024 at this time she had concerns regarding palpitations, dizziness, and flushing. She has a longstanding history of sensed SVT. Most recent ZIO monitor dated 12/2023 demonstrated frequent runs of PSVT. Patient was started on metoprolol tartrate 25 mg twice daily. Tele: AFIB 90-100s Labs: Renal function and electrolytes stable. High-sensitivity troponin 10 >> 336. EKG this am showing AFIB RVR, 104 bpm. Qtc 447 ms. Upon entrance into the room patient resting in bed. No chest pain, mild shortness of breath with exertion. Mild palpitations. No dizziness, syncope or near syncope. Having "throbbing" hand sensations which were worse yesterday afternoon. No orthopnea, PND, or increased lower extremity edema. No fever, chills, cough, hematochezia, melena, or hemoptysis. Primary outpatient claims vice president: Dr. 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 Echo without wall motion abnormalities and a preserved EF 10/2015 Dyslipidemia Allergies Allergy/AdvReac Type Severity Reaction Status Date / Time codeine Allergy Unknown CAN'T Verified 01/25/24 17:59 REMEMBER Home Medications Medication Instructions Recorded Confirmed Type Prolia 60 mg subcut Q6M 01/25/24 01/25/24 History calcium carbonate 600 mg-vitamin 1 tab PO DAILY 01/25/24 01/25/24 History D3 10 mcg (400 unit) tablet (Calcium 600 + D(3)) cholecalciferol (vitamin D3) 25 25 mcg PO DAILY 01/25/24 01/25/24 History mcg (1,000 unit) chewable tablet (Vitamin D3) famotidine 20 mg tablet 20 mg PO HS 01/25/24 01/25/24 History metoprolol tartrate 25 mg tablet 25 mg PO BID 01/25/24 01/25/24 History multivitamin 1 tab PO DAILY 01/25/24 01/25/24 History pantoprazole 40 mg tablet,delayed 40 mg PO DAILY 01/25/24 01/25/24 History release rosuvastatin 5 mg tablet 5 mg PO DAILY 01/25/24 01/25/24 History Patient History Medical History (Updated 01/26/24 @ 08:16 by LAURENCE Mckeon) GERD (gastroesophageal reflux disease) HLD (hyperlipidemia) Surgical History (Updated 01/25/24 @ 17:46 by Lucero Castillo PA-C) H/O: hysterectomy Family History (Updated 01/25/24 @ 17:47 by Lucero Castillo PA-C) Other Cancer Diabetes Social History (Updated 01/25/24 @ 17:47 by Lucero Castillo PA-C) Smoking Status: Never smoker Hx Alcohol Use: Yes Alcohol type: wine Hx Substance Use: No Preferred Language: Macedonian Communication Ability: Effective Com Writer Required: No Beliefs That Will Affect Care: None Current Living Situation: Spouse Other Information That Helps Us Care for You: No Feels Safe at Home: Yes Safety Concerns: Feels Safe At This Time Assistive Devices: None Assistive Devices Comment: retainers, glasses Review of Systems Review of Systems: All systems reviewed & are unremarkable except as noted in HPI & below Physical Exam Constitutional: WD/WN, vitals as above no acute distress Eyes: PERRL, conjunctivae normal, anicteric sclerae ENMT: external ear and nose normal, oropharynx normal Neck: normal visual inspection and trachea midline Respiratory: normal respiratory effort, lungs clear to auscultation Cardiovascular: Rate/Rhythm: + tachycardic and + irregularly irregular Heart Sounds: normal S1, normal S2 and + murmur (soft systolic murmur ) Vessels: normal peripheral pulses; no JVD Extremities: no edema Gastrointestinal (Abdomen): normal bowel sounds, soft, nontender, no hepatosplenomegaly Skin: no rashes, warm and dry Neurologic: PERRL, EOMI, accommodation nl, no face palsy, no dysarthria Psychiatric: A+Ox3, euthymic affect Results & Data Vital Signs (Past 12 Hours) Vital Signs Temp Pulse Resp BP Pulse Ox O2 Del Method 01/26/24 07:16 36.5 C 102 H 18 118/69 96 Room Air 01/26/24 05:51 99 H 18 133/85 98 Room Air 01/26/24 02:47 36.9 C 77 18 131/81 98 Room Air 01/25/24 22:52 36.6 C 98 H 18 122/71 98 Room Air 01/25/24 22:19 36.6 C 96 H 20 122/71 98 Room Air 01/25/24 20:57 100 H 16 119/68 98 Laboratory Results Cardiac Enzymes 01/25/24 01/26/24 Range/Units 14:16 05:38 AST 25 (13-39) U/L Troponin I High Sens 10.1 336.3 H* D (0-14) pg/ml Coagulation 01/25/24 Range/Units 14:16 PT 11.2 (9.0-12.0) Seconds APTT 25 (21-31) Seconds CBC 01/25/24 01/26/24 Range/Units 14:16 05:38 WBC 9.09 13.03 H (4.8-10.8) K/ul RBC 4.50 4.84 (4.20-5.40) M/uL Hgb 13.3 14.5 (12.0-16.0) g/dl Hct 38.1 42.3 (37.0-47.0) % Plt Count 329 300 (130-400) K/uL Neut # (Auto) 5.86 (1.40-6.50) K/uL Lymph # (Auto) 2.50 (1.20-3.40) K/uL Bureau # (Auto) 0.60 H (0.11-0.59) K/uL Eos # (Auto) 0.05 (0.00-0.50) K/uL Baso # (Auto) 0.05 (0.00-0.20) K/uL Comprehensive Metabolic Panel 01/25/24 01/26/24 Range/Units 14:16 05:38 Sodium 139 141 (136-145) mmol/L Potassium 3.6 3.8 (3.5-5.1) mmol/L Chloride 109 H 108 H (98-107) mmol/L Carbon Dioxide 15 L 26 (21-32) mmol/L BUN 18 12 (6-23) mg/dl Creatinine 0.91 0.80 (0.6-1.2) mg/dl Glucose 155 H 93 (70-99(Fasting)) mg/dl Calcium 8.8 8.8 (8.6-10.3) mg/dl AST 25 (13-39) U/L ALT 23 (7-52) U/L Alkaline Phosphatase 60 (34-104) U/L Total Protein 6.0 (6.0-8.3) gm/dl Albumin 3.6 (3.4-5.0) gm/dl Intake and Output 01/25/24 01/26/24 01/26/24 22:59 06:59 14:59 Intake Total 100 / 240.6 140.6 / 240.6 78.217 / 78.217 Output Total 550 / 550 Balance 100 / -309.4 -409.4 / -309.4 78.217 / 78.217 Intake: IV 100 / 240.6 140.6 / 240.6 78.217 / 78.217 Heparin Sodium/Dextrose 25,000 140.6 / 140.6 78.217 / 78.217 units In 500 ml @ 950 UNITS/HR 19 mls/hr IV .Q24H [facility] Rx#: [id number] Magnesium Sulfate / D5w 1 gm In 100 / 100 100 ml @ 50 mls/hr IV ONE ONE Rx#:[id number] Output: Urine Amount (Catheter) 550 / 550 External 550 / 550 Other: Other Intake Source npo Weight 64.3 kg 64.3 kg Weight Measurement Method Built in [facility] Diagnostic Findings Zio monitor December 19, 2023: Patient had a min HR of 52 bpm, max HR of 200 bpm, and avg HR of 85 bpm. Predominant underlying rhythm was Sinus Rhythm. 79 Supraventricular Tachycardia runs occurred, the run with the fastest interval lasting 14 beats with a max rate of 200 bpm, the longest lasting 14.7 secs with an avg rate of 125 bpm. Isolated SVEs were occasional (2.2%, 34579), SVE Couplets were rare (<1.0%, 417), and SVE Triplets were rare (<1.0%, 113). Isolated VEs were rare (<1.0%, 54), VE Couplets were rare (<1.0%, 14), and VE Triplets were rare (<1.0%, 1). Inverted QRS complexes possibly due to inverted placement of device. No patient marker or diary entry submitted Impression: Sinus rhythm, average rate 85 beats per minute with occasional premature atrial beats and multiple short runs of nonsustained supraventricular tachycardia
[2024-01-26] MEDS: FAMOTIDINE 20MG IV PUSH 20 MG/5 ML SYR IV STA (08:29)
[2024-01-26] MEDS: POTASSIUM CHLORIDE 20 MEQ in LACTATED RINGER'S 1,000 ML IV ONE (08:32)
[2024-01-26] MEDS: ETOMIDATE 2 MG/ML 20 ML VIAL IV ONE (08:46)
[2024-01-26] MEDS: PANTOprazole 40 MG TAB PO STA (08:47)
[2024-01-26] MEDS: POTASSIUM CHLORIDE CRTAB 20 MEQ TABCR PO STA (08:47)
[2024-01-26] MEDS: MULTIVITAMIN TAB PO SCH (08:49)
[2024-01-26] MEDS: CHOLECALCIFEROL 25 MCG (1000 UNITS) TAB PO SCH (08:49)
[2024-01-26] MEDS: ROSUVASTATIN CALCIUM 5 MG TAB PO SCH (08:50)
[2024-01-26] MEDS ORDERED: PANTOprazole 40 MG TAB PO SCH (09:00)
[2024-01-26] MEDS ORDERED: CALCIUM 600MG + VIT D 400 IU TAB PO SCH (09:00)
[2024-01-26] MEDS ORDERED: 0.2 MICRON FILTER SET 1 EACH IV ONE (09:41)
[2024-01-26] MEDS: AMIODARONE / D5W 360 MG/200 ML BAG IV ONE (11:09)
--- NOTE | 2024-01-26 11:57 | Electrocardiogram Report ---
Test Reason : Blood Pressure : / mmHG Vent. Rate : 117 BPM Atrial Rate : 000 BPM P-R Int : 000 ms QRS Dur : 078 ms QT Int : 278 ms P-R-T Axes : 000 083 189 degrees QTc Int : 387 ms Atrial fibrillation with rapid ventricular response Marked ST abnormality, possible inferior subendocardial injury Abnormal ECG Confirmed by Bony Orellana ([id number]) on 01/26/2024 11:57:28 AM Referred By: REFERRED SELF Confirmed By:Inocente Orellana
--- NOTE | 2024-01-26 12:01 | Electrocardiogram Report ---
Test Reason : Blood Pressure : / mmHG Vent. Rate : 104 BPM Atrial Rate : 000 BPM P-R Int : 000 ms QRS Dur : 078 ms QT Int : 350 ms P-R-T Axes : 000 089 074 degrees QTc Int : 460 ms Atrial fibrillation with rapid ventricular response with premature ventricular or aberrantly conducte d complexes Abnormal ECG When compared with ECG of 25-JAN-2024 14:04, (unconfirmed) ST no longer depressed in Lateral leads T wave inversion no longer evident in Inferior leads T wave inversion no longer evident in Lateral leads Confirmed by Bony Orellana ([id number]) on 01/26/2024 12:00:37 PM Referred By: REFERRED SELF Confirmed By:Inocente Orellana
--- NOTE | 2024-01-26 12:06 | Electrocardiogram Report ---
Test Reason : Blood Pressure : / mmHG Vent. Rate : 104 BPM Atrial Rate : 075 BPM P-R Int : 000 ms QRS Dur : 070 ms QT Int : 340 ms P-R-T Axes : 000 080 081 degrees QTc Int : 447 ms Atrial fibrillation with rapid ventricular response Abnormal ECG When compared with ECG of 25-JAN-2024 14:24, (unconfirmed) No significant change was found Confirmed by Bony Orellana ([id number]) on 01/26/2024 12:06:18 PM Referred By: REFERRED SELF Confirmed By:Inocente Orellana
--- OUTSIDE RECORDS SUMMARY | 2024-01-26 13:34 | External Medical Summary | Summary of Care ---
Author Name Unknown Organization [facility] Address [address] [place] [address] Phone [phone] Care Team Providers Care Assembler Convertible Top Name Role Phone Dimas Lopez MD Primary Care Provider + Reason for Visit * Reason Onset Date Comments Test Results 01/17/2024 Encounter Details Date Type Department Care Team (Late st Contact Info) Description 01/17/2024 Telephone General Internal Medicine [facility] [address] [facility] [place] [id number] Dimas Lopez MD [address] [place], [place] [id number] Test Results Allergies Active Allergy Reactions Criticality Noted Date Comments Codeine Other (Please comment) 02/01/2018 Cough syrup with codeine "felt like I was drowning" "couldn't breathe" Dust Other (Please comment) 07/23/2015 sneezing documented as of this encounter (statuses as of 01/18/2024) Medications Medication Sig Dispensed Refills Start Date End Date Status MULTIVITAMINS PO TABS 0 0 07/27/2007 Active CALCIUM 600-D 600-400 MG-UNIT PO TABS one tablet by mouth daily 0 07/16/2012 Active Acetaminophen 325 MG Oral Tablet (Tylenol) as needed. 0 Act sia Vitamin D (Cholecalciferol) 25 MCG (1000 UT) Oral Capsule 0 Active Prolia 60 MG/ML Subcutaneous Solution Prefilled Syringe (Denosumab) Inject 60 mg under the skin every 6 months. 0 Active Pantoprazole Sodium 40 MG Oral Tablet Delayed Release (Protonix)Indications: Gastroesophageal reflux disease without esophagitis Take 1 Tablet by mouth in the morning. 30 minutes before the first meal of the day. Do not crush, split or chew the tablet. 90 Tablet 3 04/10/2023 Active Rosuvastatin Calcium 5 MG Oral Tablet (Crestor) TAKE 1 TABLET BY MOUTH AT BEDTIME 90 Tablet 3 04/12/2023 Active Famotidine 20 MG Oral Tablet (Pepcid)Indications:Ga stroesophageal reflux disease without esophagitis,Oropharyng eal dysphagia TAKE 1 TABLET BY MOUTH BEFORE BEDTIME 90 Tablet 1 09/18/2023 Active Metoprolol Tartrate 25 MG Oral Tablet (Lopressor) Take 1 Tablet by mouth in the morning and 1 Tablet before bedtime. 60 Tablet 5 01/17/2024 Active documented as of this encounter (statuses as of 01/18/2024) Active Problems Problem Noted Date Diagnosed Date Mixed hyperlipidemia 05/11/2022 Senile osteoporosis 12/03/2021 Memory changes 09/03/2019 Chronic rhinitis 01/06/2018 GERD (gastroesophageal reflux disease) 2 documented as of this encounter (statuses as of 01/18/2024) Resolved Problems Problem Noted Date Diagnosed Date Resolved Date Encounter for examination fo r normal comparison and control in clinical research program 06/11/2018 06/08/2020 Overview: DO NOT DELETE [facility] DETECT Study: Project # [id number], [address] Vendor: Luis A Jameson, PhD. SUMMARY: Goal: Establish test characteristics (sensitivity, specificity, PPV, NPV) of a circulating tumor DNA (ctDNA)-based test for cancer. Hypothesis: Circulating tumor DNA (ctDNA) and elevated protein biomarkers (together, the marker panel) can be detected in asymptomatic individuals with early cancer. Specific Aim 1: Determine the prevalence of a positive marker panel test in a prospective clinical cohort of 10,000 asymptomatic women ages 65 to 75 years. Specific Aim 2: Determine the sensitivity, specificity, positive predictive value (PPV) and negative predictive value (NPV) of a marker panel test to identify histologically proven cancers that develop within 5-years of the marker panel evaluation. CONTACTS: During normal business hours, contact study staff at ; after hours [address] Vendor via the [facility] drop hammer operator helper . Please contact study team before resolving/deleting from patients problem list. Study phone number: [phone]. Diagnosis changed due to Research Module. Go to Snapshot for study details. Encounter for examination fo r normal comparison and control in clinical research program 06/11/2018 07/07/2022 Overview: DO NOT DELETE - [facility] Study: Project # [id number], [address] Vendor: Fermin Brar, MS, MPH. SUMMARY: Goal: Establish test characteristics (sensitivity, specificity, PPV, NPV) of a circulating tumor DNA (ctDNA)-based test for cancer. - Hypothesis: Circulating tumor DNA (ctDNA) and elevated protein biomarkers (together, the marker panel) can be detected in asymptomatic individuals with early cancer. - Specific Aim 1: Determine the prevalence of a positive marker panel test in a prospective clinical cohort of 10,000 asymptomatic women ages 65 to 75 years. - Specific Aim 2: Determine the sensitivity, specificity, positive predictive value (PPV) and negative predictive value (NPV) of a marker panel test to identify histologically proven cancers that develop within 5-years of the marker panel evaluation. - CONTACTS: During normal business hours, contact study staff at ; after hours [address] Vendor via the [facility] drop hammer operator helper . - Please contact study team before resolving/deleting from patients problem list. Study phone number: [phone]. Diagnosis changed due to Research Module. Go to Snapshot for study details. Other chest pain 07/26/2010 07/31/2017 Abnormal electrocardiogram 07/26/2010 0 07/31/2017 Diverticulosis, sigmoid 07/04/200512/08 Overview: noted on 11/04/[address] barker ADVANCE DIRECTIVE INFORMATION 06/17/2005 01/06/2018 Overview: Yes, Patient instructed to provide copy of advance directive for provider to review and to be scanned into Electronic Medical Record GENERAL OSTEOARTHROSIS 11/21/200101/01 Palpitations 12/22/2011 NONSPECIF SKIN ERUPT NEC Other specified disorder of the esophagus 04/20/2020 Overview: esophageal dysfunction Dysphagia 01/06/2018 Overview: ICD-10 update of inactive term Diarrhea 11/27/2015 documented as of this encounter (statuses as of 01/18/2024) Immunizations Name Administration Dates Next Due COVID-19 mRNA, LNP-s, No Pre serve, 2-Dose Series (Pfizer) 08/18/2021,01/13/2021,12/18/2020 COVID-19, LNP-s, No Preserve , Manoj-sucrose, Ages 12+ (Pfizer) 03/10/2022 Covid-19, Mrna, Lnp-s, Pf, B ivalent, 30 Mcg, IM, 12 yrs and above (Pfizer) 08/30/2022 HEP A - Hepatitis A (Adult > 18 yrs) 12/12/2018, 09/01/2014,10/14/2013 Pneumococcal Conjugate Vacc, 13 Valent (Prevnar) 07/12/2016 Pneumococcal Polysaccharide PPV23 (Pneumovax) 08/27/2013 Season Influenza, Quad, PF, Adjuvanted, 65+ Yrs, IM (FLUAD) 07/14/2020 Seasonal Influenza, PF, 6 M & above, IM , (FluLaval or Fluzone) 07/31/2018,07/31/2017 Seasonal Influenza, Quadriva lent Hd (Fluzone Hd) 07/25/2023,07/13/2022,07/16/2021 Seasonal Influenza, Quadriva lent, No Preserve, IM 11/30/2016,10/22/2015 Seasonal Influenza, Split, I IV3, No Preserve, Inj 10/11/2006 Seasonal Influenza, Split, I IV3, With Preserve, Inj 09/01/2014,08/22/2013,07/16/2012,10/28,12/27/2010 Seasonal Influenza, Trivalen t, Adjuvanted, 65+ yrs 08/01/2019 TDAP (age 11 and older)(Adacel) 05/12/2021,12/27 Typhoid Vaccine Oral (Vivotif) 12/01/2018 Varicella Zoster Vaccine (Adult) 11/25/2013 Zoster Vaccine Recombinant (Shingrix) 10/06/2019 ,06/27/2019 documented as of this encounter Social History Tobacco Use Types Packs/Day Years Used Date Smoking Tobacco: Never Smokeless Tobacco: Never Comments:No passive smoke ex posure Alcohol Use Standard Drinks/Week Comments Yes 0 (1 standard drink = 0.6 oz pure alcohol) Rare-glass of wine twice a month AUDIT-C Answer Date Recorded Q1: How often do you have a drink containing alc ohol? Monthly or less 04/15/2021 Q2: How many drinks containi ng alcohol do you have on a typical day when you are drinking? 1 or 2 04/15/2021 Q3: How often do you have si x or more drinks on one occasion? Not asked 04/15/2021 PHQ-2 Answer Date Recorded PHQ Adult Total Score 3 04/19/2023 Hunger Vital Sign Answer Date Recorded Within the past 12 months, y ou worried that your food would run out before you got the money to buy more. Never true 04/07/20 23 Within the past 12 months, t he food you bought just didn't last and you didn't have money to get more. Never true 04/07/2023 Sex and Gender Information Value Date Recorded Sex Assigned at Female 04/09/2019 11:47 AM EDT Gender Identity Female 04/09/2019 11:47 AM EDT Sexual Orientation Straight 04/09/2019 11 :47 AM EDT Job Start Date Occupation Industry Not on file Not on file Not on file documented as of this encounter Miscellaneous Notes * Telephone Encounter - Dayna Ascencio LPN - 01/18/2024 9:24 AM EDT Patient is aware and verbalizes understanding. She was at Cardiology appointment today and prescribed Metoprolol Tartrate 25 mg BID. * Telephone Encounter - Keely Johns LPN - 01/17/2024 2:38 PM EDT Left message for pt to call back. * Telephone Encounter - Keely Johns LPN - 01/17/2024 2:23 PM EDT ----- Message from Dimas Lopez MD sent at 01/14/2024 12:21 PM EDT ----- Scott looks ok, has sinus (normal) rhythm most of time with rare premature atrial beats (benign) and short runs of nonsustained supraventricular tachycardia (NSVT) which can be benign. Given her symptoms suggest she see cardiology about her rapid heart rate and dizziness documented in this encounter Plan of Treatment Upcoming Encounters Date Type Department Care Team (Late st Contact Info) Description 02/20/2024 2:30 PM EDT Office Visit Rheumatology [address] [place] [address] Courtney Juarez CRNP [address] [place] [address] [place] [address] 02/23/2024 7:15 AM EDT Cardiac Studies Cardiac Studies, [facility] [address] [facility] [place] [address] 03/21/2024 2:30 PM EDT Office Visit Cardiology, [facility] [address] [facility] [place] [address] Lucas Hopper, [address] [facility] [place] [address] 04/25/2024 10:00 AM EDT Nurse Only Ancillary [facility] [address] [facility] [place] [address] Im, Nurse Annual Wellness [facility] [address] [facility] [place] [address] 07/18/2024 10:00 AM EDT Imaging Radiology [facility] [address] [facility] [address] [facility] [place] [address] 09/02/2024 3:20 PM EDT Office Visit General Internal Medicine [facility] [address] [place] [address] Dimas Lopez MD [address] [place] [id number] Scheduled Procedures Name Priority Associated Diagnoses Date/Ti me COLONOSCOPY FLEXIBLE PROXIMAL DIAGNOSTIC Recall History of colon polyps Health Maintenance Due Date Last Done Comments COVID-19 Vaccine (2022- season) 2023 08/30/2022, 03/10/2022, 08/18/2021, Additional history exists Depression Screening 04/19/2024 04/19/2023 DXA Scan 12/04/2025 12/04/2023, 11/07, 10/07/2013, Additional history exists COLONOSCOPY-EVERY 5 YRS AGES 18-100 06/25/2026 06/25/2021, 06/25/2021, 02/01/2018, Additional history exists DTaP,Tdap,and Td Vaccines (3 - Td or Tdap) 05/12/2031 05/12/2021, 12/27/2010, 06/17/2005 Pneumococcal Vaccine: 65+ Years Completed 07/12/2016, 08/27/2013 Zoster Vaccines Completed 10/06/2019, 06/07, 11/25/2013 COLONOSCOPY-EVERY 3 YRS AGES 18-100 Discontinued 06/25/2021, 06/25/2021, 02/01/2018, Additional history exists Influenza Vaccine (FLU shot) Completed 07/25/2023, 07/13/2022, 07/16/2021, Additional history exists VITAMIN D LEVEL ONCE IN A LIFETIME-USE SMARTSET# [id number] Completed 12/21/2023, 01/09/2023, 02/01/2022 GARDASIL-HPV IMMUNIZATION SERIES Aged Out No longer eligible based on patient's age to complete this topic Hepatitis B Aged Out No longer eligi ble based on patient's age to complete this topic MENINGOCOCCAL (MENACTRA/MENVEO) Aged Out No longer eligible based on patient's age to complete this topic documented as of this encounter Medical Devices Not on filedocumented as of this encounter Advance Directives Documents on File Type Date Recorded Patient Game Technician Expl anation Advance Directives and Livin g Will 01/19/2018 LIVING WILL Power of Sourcing Intern 01/19/2018 POWER OF A TTORNEY Care Teams Assembler Convertible Top Relationship Specialty Start Date End Date Dimas Lopez MD [address] [facility] [place] [address] PCP - General Internal Medicine 06/01/22 documented as of this encounter
--- OUTSIDE RECORDS SUMMARY | 2024-01-26 13:35 | External Medical Summary ---
Author Name Unknown Address Unknown Organization [id number][facility] [address] [place] [id number] Laboratory Report Ordering Provider Test Date Status YOSEPH DYSON 12/21/2023 12:15:49 Final Observation Date Value Abnormality Reference (Units ) Status WBC, Total 12/21/2023 12:15:49 7.53 4.00-10.8 0 (K/uL) Final RBC 12/21/2023 12:15:49 4.78 3.85-5.15 (M/uL) Final Hemoglobin 12/21/2023 12:15:49 14.4 12.0-15.3 (g/dL) Final HCT 12/21/2023 12:15:49 43.3 36.0-45.2 (%) Final MCV 12/21/2023 12:15:49 90.6 81.5-97.5 (fL) Final MCH 12/21/2023 12:15:49 30.1 27.0-34.0 (pg) Final MCHC 12/21/2023 12:15:49 33.3 32.0-36.0 (g/dL) Final RDW 12/21/2023 12:15:49 12.2 11.5-15.5 (%) Final Platelets 12/21/2023 12:15:49 264 140-400 (K /uL) Final MPV 12/21/2023 12:15:49 10.1 6.6-11.1 ( fL) Final Performing Location [facility] [address] [place] [id number]
--- OUTSIDE RECORDS SUMMARY | 2024-01-26 13:35 | External Medical Summary | Summary of Care ---
Author Name Unknown Organization [facility] Address [address] [place] [address] Phone [phone] Care Team Providers Care Warehouser Name Role Phone Dimas Lopez MD Primary Care Provider + Reason for Referral * Precert (Within 24 hrs (call dept; emergent)) - Pending Review Specialty Diagnoses / Procedures Referred By Contac t Referred To Contact Cardiac Studies Diagnoses Palpitations Abnormal EKG Procedures ECHO, COMPLETE (2D), TRANS-THORACIC Dimas Lopez MD [address] [place] [address] Referral ID Status Reason Start Date Expiration Date Visits Requested Visits Authorized [id number] Pending Review Precert 12/19/2023 999 999 Reason for Visit * Reason Comments Acute Patient c/o nausea a nd weakness. Patient stated about two weeks ago she felt nauseas, tired, dizzy, and face was burning red. Monday night she woke up with a headache, face was burning, hands and arms were throbbing, heart pounding, had trouble standing, and had trouble breathing. She states she has multiple of these episodes over the past year and is concerned. Encounter Details Date Type Department Care Team (Late st Contact Info) Description 12/19/2023 3:00 PM EST Office Visit General Internal Medicine [facility] [place] [address] [place] [address] Dimas Lopez MD [address] [place] [place] [address] Palpitations*; Flushing; Nausea; Generalized weakness; Dizziness; Abnormal EKG Allergies Active Allergy Reactions Criticality Noted Date Comments Codeine Other (Please comment) 02/01/2018 Cough syrup with codeine "felt like I was drowning" "couldn't breathe" Dust Other (Please comment) 07/23/2015 sneezing documented as of this encounter (statuses as of 12/19/2023) Medications Medication Sig Dispensed Refills Start Date End Date Status MULTIVITAMINS PO TABS once daily 0 0 07/27/2007 Active CALCIUM 600-D 600-400 MG-UNIT PO TABS one tablet by mouth daily 0 07/16/2012 Active Tylenol 325 MG Oral Capsule (Acetaminophen) Take by mouth. 0 Activ e Vitamin D (Cholecalciferol) 25 MCG (1000 UT) Oral Capsule Take by mouth . 0 Active Prolia 60 MG/ML Subcutaneous Solution Prefilled Syringe (Denosumab) Inject 60 mg under the skin once. 0 Active Pantoprazole Sodium 40 MG Oral [...] BEFORE BEDTIME 90 Tablet 1 09/18/2023 Active documented as of this encounter (statuses as of 12/19/2023) Active Problems Problem Noted Date Diagnosed Date Mixed hyperlipidemia 05/11/2022 Senile osteoporosis 12/03/2021 Memory changes 09/03/2019 Chronic rhinitis 01/06/2018 GERD (gastroesophageal reflux disease) 2 Diverticulosis, sigmoid 07/04/2005 Overview: noted on 11/04/[address] barker GENERAL OSTEOARTHROSIS 11/21/2001 documented as of this encounter (statuses as of 12/19/2023) Resolved Problems Problem Noted Date Diagnosed Date Resolved Date Encounter for examination fo r normal comparison and control in clinical research program 06/11/2018 06/08/2020 Overview: DO NOT DELETE [facility] DETECT Study: Project # [id number], Public Health Dietitian: Luis A Jameson, PhD. SUMMARY: Goal: Establish [...] contact study staff at ; after hours Public Health Dietitian via the [facility] [place] . Please contact study team before resolving/deleting from patients problem list. Study phone number: [phone]. Diagnosis changed due to Research Module. Go to Snapshot for study details. Encounter for examination fo r normal comparison and control in clinical research program 06/11/2018 07/07/2022 Overview: DO NOT DELETE - [facility] DETECT Study: Project # [id number], Public Health Dietitian: Fermin Brar, MS, MPH. SUMMARY: Goal: Establish [...] contact study staff at ; after hours Public Health Dietitian via the [facility] [place] regulator operator . - Please contact study team before resolving/deleting from patients problem list. Study phone number: [phone]. Diagnosis changed due to Research Module. Go to Snapshot for study details. Other chest pain 07/26/2010 07/31/2017 Abnormal electrocardiogram 07/26/2010 0 07/31/2017 ADVANCE DIRECTIVE INFORMATION 06/17/2005 01/06/2018 Overview: Yes, Patient instructed to provide copy of advance directive for provider to review and to be scanned into Electronic Medical Record Palpitations 12/22/2011 NONSPECIF SKIN ERUPT NEC Other specified disorder of the esophagus 04/20/2020 Overview: esophageal dysfunction Dysphagia 01/06/2018 Overview: ICD-10 update of inactive term Diarrhea 11/27/2015 documented as of this encounter (statuses as of 12/19/2023) Immunizations Name Administration Dates Next Due COVID-19 mRNA, LNP-s, No Pre serve, 2-Dose Series ([employer] [facility]) 08/18/2021,01/13/2021,12/18/2020 COVID-19, LNP-s, No Preserve , Manoj-sucrose, [...] Date Smoking Tobacco: Never Smokeless Tobacco: Never Tobacco Cessation:Counseling Given: Not Answered Comments:No passive smoke exposure Alcohol Use Standard Drinks/Week Comments Yes 0 [...] on file documented as of this encounter Last Filed Vital Signs Vital Sign Reading Time Taken Comments Blood Pressure 114/64 12/19/2023 2:48 PM EST Pulse 85 12/19/2023 2:48 PM EST Temperature 36.4 C (97.5 F) 12/19/2023 2:48 PM ES T Respiratory Rate - - Oxygen Saturation 97% 12/19/2023 2:48 PM EST Inhaled Oxygen Concentration - - Weight 63.6 kg (140 lb 3.2 oz) 12/19/2023 2:48 P M EST Height 167.6 cm (5' 6") 12/19/2023 2:48 PM EST Body Mass Index 22.63 12/19/2023 2:48 PM EST documented in this encounter Progress Notes * Dimas Lopez MD - 12/19/2023 3:10 PM EST Chief Complaint Patient presents with Acute Patient c/o nausea and weakness. Patient stated about two weeks ago she felt nauseas, tired, dizzy,and face was burning red. Monday night she woke up with a headache, face was burning, hands and arms were throbbing, heart pounding, had trouble standing, and had trouble breathing. She states she has multiple of these episodes over the past year and is concerned. SUBJECTIVE: Mai Quintana is a 73 year old female with PMH as below who presents for Acute has had 4 episodes over past year where doesn't feel well. 1st one last March when in [place], was very warm, hot out, got nausea, tired, felt like throwing up, felt was dehydrated drank water, felt better after 1/2 hour. Heart was racing, but no cp, pressure. Had similar episode in [place] in August. No trigger. Also had episode at meeting 12/06/23 - was intense meeting, then felt nausea, like was going to throw up, palpitations, felt flushed, very warm. Some flores, but no pain. Last 0.5 hour, resolved on own. Had similar one last weekend - awoke her with flushing, warmth, palpitations, dizzy,and fatigue. No syncope or seizure no cp, pressure, but again felt trouble breathing, trouble standing, no falls, or headache. She notes very little alcohol rarely. Is drinking water. Episodes last 0.5 hours on average. Patient Active Problem List Diagnosis Code GENERAL OSTEOARTHROSIS M15.9 Diverticulosis, sigmoid K57.32 GERD (gastroesophageal reflux disease) K21.9 Chronic rhinitis J31.0 Memory changes R41.3 Senile osteoporosis M81.0 Mixed hyperlipidemia E78.2 Current Outpatient Medications Medication Sig Dispense Refill MULTIVITAMINS PO TABS once daily 0 0 CALCIUM 600-D 600-400 MG-UNIT PO TABS one tablet by mouth daily Vitamin D (Cholecalciferol) 25 MCG (1000 UT) Oral Capsule Take by mouth . Pantoprazole Sodium 40 MG Oral Tablet Delayed Release (Protonix) Take 1 Tablet by mouth in the morning. 30 minutes before the first meal of the day. Do not crush, split or chew the tablet. 90 Tablet 3 Rosuvastatin Calcium 5 MG Oral Tablet (Crestor) TAKE 1 TABLET BY MOUTH AT BEDTIME 90 Tablet 3 Famotidine 20 MG Oral Tablet (Pepcid) TAKE 1 TABLET BY MOUTH BEFORE BEDTIME 90 Tablet 1 Tylenol 325 MG Oral Capsule (Acetaminophen) Take by mouth. Prolia 60 MG/ML Subcutaneous Solution Prefilled Syringe (Denosumab) Inject 60 mg under the skin once. No current facility-administered medications for this visit. Review of patient's allergies indicates: Allergen Reactions Codeine Other (Please comment) Cough syrup with codeine "felt like I was drowning" "couldn't breathe" Dust Other (Please comment) sneezing Health Maintenance Due Topic Date Due COVID-19 Vaccine ( season) 2023 ROS: CONSTITUTIONAL: No change in weight, No weakness, and per hpi EYE: No recent significant change in vision and No eye pain, redness, discharge EARS: No ear pain, No drainage, No tinnitus or vertigo, and No recent change in hearing PULMONARY: No cough, sputum, or hemoptysis, No wheezing, No rales, and No shortness of breath CARDIOVASCULAR: No chest pain, No orthopnea, No paroxysmal nocturnal dyspnea, No edema, and No syncope GASTROINTESTINAL: No abdominal pain, No change in bowel habits, No significant heartburn, No significant change in appetite, No vomiting, diarrhea, or constipation, No hematemesis, No blood in stoolsor black tarry stools, No abdominal bloating or early satiety, and No dysphagia EXTREMITIES: No pain, redness or swelling on the joints SKIN/INTEGUMENTARY: No edema, No rash, and No itching ALL OTHER SYSTEMS NEGATIVE I reviewed social, PMH, PSH, and family history and updated where needed. Social History Socioeconomic History Marital status: Spouse name: Pascual Number of children: 2 Years of education: Not on file Highest education level: Not on file Occupational History Employer: [employer] [id number] Occupation: retired Tobacco Use Smoking status: Never Smokeless tobacco: Never Tobacco comments: No passive smoke exposure Vaping Use Vaping Use: Never used Substance and Sexual Activity Alcohol use: Yes Comment: Rare-glass of wine twice a month Drug use: No Sexual activity: Yes Partners: Male Other Topics Concern Service No Blood Transfusions No Caffeine Concern No Occupational Exposure No Hobby Hazards No Sleep Concern No Stress Concern Yes Comment: recent CT results Weight Concern Yes Comment: losing weight without trying, has put some back on Special Diet No Back Care No Exercise Yes Bike Helmet Yes Seat Belt Yes Self-Exams No Social History Narrative for 50 years. Lives with Social Determinants of Health Financial Resource Strain: Not on file Food Insecurity: No Food Insecurity (04/07/2023) Hunger Vital Sign Worried About Running Out of Food in the Last Year: Never true Ran Out of Food in the Last Year: Never true Transportation Needs: Not on file Physical Activity: Not on file Stress: Not on file Social Connections: Not on file Intimate Partner Violence: Not on file Housing Stability: Not on file Past Medical History: Diagnosis Date Benign neoplasm of colon 11/01/12 COLONOSCOPY FLEXIBLE PROXIMAL DIAGNOSTIC performed by Rubén Lara MD at ENDOSCOPY [facility], ADENOMATOUS POLYPS REPEAT COLONOSCOPY IN 5 YEARS Disease of pancreas Diverticulosis Dysphagia, unspecified(787.20) GERD (gastroesophageal reflux disease) Memory changes Mixed hyperlipidemia 05/11/2022 Osteoarthritis Other specified disorder of the esophagus esophageal dysfunction Palpitations Senile osteoporosis 12/03/2021 Past Surgical History: Procedure Laterality Date COLONOSCOPY 11/04/2002 normal exam with some diverticulosis, sigmoid COLONOSCOPY, DIAGNOSTIC (RECTUM) 11/01/2012 COLONOSCOPY FLEXIBLE PROXIMAL DIAGNOSTIC performed by Rubén Lara MD at ENDOSCOPY [facility], ADENOMATOUS POLYPS REPEAT COLONOSCOPY IN 5 YEARS COLONOSCOPY, DIAGNOSTIC (RECTUM) 02/01/2018 TVA polyp, repeat 3 yrs/COLONOSCOPY FLEXIBLE PROXIMAL DIAGNOSTIC performed by Rubén Lara MD at ENDOSCOPY [facility] COLONOSCOPY, DIAGNOSTIC (RECTUM) 06/25/2021 Hx colon polyps, diverticulosis, normal exam- 5 year recall/COLONOSCOPY FLEXIBLE PROXIMAL DIAGNOSTIC performed by Rubén Lara MD at ENDOSCOPY [facility] EGD, FLEXIBLE, DIAGNOSTIC 07/21/2016 acid reflux on bx, HH, gastric polyps/ESOPHAGOGASTRODUODENOSCOPY (EGD), FLEXIBLE, TRANSORAL, DIAGNOSTIC performed by Nam Martinez MD at ENDOSCOPY [facility] EGD, FLEXIBLE, DIAGNOSTIC 07/12/2022 gastric fundic gland polyps / ESOPHAGOGASTRODUODENOSCOPY (EGD), FLEXIBLE, TRANSORAL, DIAGNOSTIC performed by Rubén Lara MD at ENDOSCOPY [facility] EGD, FLEXIBLE, INSERT WIRE, PASS DILATOR 10/10/2008 EGD, FLEXIBLE, INSERT WIRE, PASS DILATOR 01/10/2012 dilatation gastric polyps BENIGN EGD, FLEXIBLE, W/BIOPSY 09/05/2008 bx's taken/minimaL GASTRIC INFLAMMATION TOTAL ABD HYSTERECTOMY W/WO REMOVAL OF TUBE(S) 2001 mass on ovary Family History Problem Relation Age of Onset Diabetes Mother Heart Disorder Mother Hypertension Mother Autoimmune disease Mother like GCA Cancer Father prostate-metastatic to kidneys Eye Problems Sister glaucoma Other (Other) Sister circulatory No Known Problems Daughter Bipolar Disorder Son OBJECTIVE: PHYSICAL EXAM: BP 114/64 | Pulse 85 | Temp 36.4 C (97.5 F) (Tympanic) | Ht 1.676 m (5' 6") | Wt 63.6 kg (140 lb 3.2 oz) | SpO2 97% | BMI 22.63 kg/m | BSA 1.72 m General: alert, healthy, and no distress Head: Normocephalic, No masses, lesions, or abnormalities Eye Exam: conjunctiva are pink and non-injected, sclera clear Ears: External ears normal, mild cerumen right canal, left canal clear Heart: regular rate & rhythm, no murmur, no gallops, PMI non-displaced, S-1 normal, and S-2 normal Lungs: normal respiratory rate and rhythm, lungs clear to auscultation Extremities: no edema, no clubbing, no cyanosis Neuro Exam: alert with fluent speech, gait normal EKG: nsr at 83 bpm, qtc 411, possible lae, anteroseptal changes, seems anterior changes prior EKG from 2014 ASSESSMENT: R00.2 Palpitations (primary encounter diagnosis) R23.2 Flushing R11.0 Nausea R53.1 Generalized weakness R42 Dizziness R94.31 Abnormal EKG PLAN: Palpitations (Primary) - COMPREHENSIVE METABOLIC PANEL; Future; Expected date: 12/19/2023 - TSH; Future; Expected date: 12/19/2023 - CBC WITH WBC DIFFERENTIAL; Future; Expected date: 12/19/2023 - EXTERNAL EKG 8 TO 15 DAYS; Future; Expected date: 12/20/2023 - ECHO, COMPLETE (2D), TRANS-THORACIC; Future; Expected date: 12/19/2023 Given multiple episodes, flushing, flores, wonder if arrhythmia causing or other etiology. Will check labs, and also zio Will update echo given EKG changes Aware to ER for persistent/worsening symptoms Flushing As above Nausea - COMPREHENSIVE METABOLIC PANEL; Future; Expected date: 12/19/2023 - TSH; Future; Expected date: 12/19/2023 - CBC WITH WBC DIFFERENTIAL; Future; Expected date: 12/19/2023 - EKG; Future; Expected date: 12/19/2023 - EKG - EXTERNAL EKG 8 TO 15 DAYS; Future; Expected date: 12/20/2023 As above, seems with palpitations, flushing, check work up as above Generalized weakness - COMPREHENSIVE METABOLIC PANEL; Future; Expected date: 12/19/2023 - TSH; Future; Expected date: 12/19/2023 - CBC WITH WBC DIFFERENTIAL; Future; Expected date: 12/19/2023 - EKG; Future; Expected date: 12/19/2023 - EKG - EXTERNAL EKG 8 TO 15 DAYS; Future; Expected date: 12/20/2023 With episodes Await labs Dizziness - COMPREHENSIVE METABOLIC PANEL; Future; Expected date: 12/19/2023 - TSH; Future; Expected date: 12/19/2023 - CBC WITH WBC DIFFERENTIAL; Future; Expected date: 12/19/2023 - EKG; Future; Expected date: 12/19/2023 - EKG - EXTERNAL EKG 8 TO 15 DAYS; Future; Expected date: 12/20/2023 Abnormal EKG - ECHO, COMPLETE (2D), TRANS-THORACIC; Future; Expected date: 12/19/2023 Follow Up: Return if symptoms worsen or fail to improve and as scheduled., for Labs Today. | For: Labs Today documented in this encounter Nursing Notes * Lita Zavala MED ASSIST - 12/19/2023 2:56 PM EST Chief Complaint Patient presents with Acute Patient c/o nausea and weakness. Patient stated about two weeks ago she felt nauseas, tired, dizzy,and face was burning red. Monday night she woke up with a headache, face was burning, hands and arms were throbbing, heart pounding, had trouble standing, and had trouble breathing. She states she has multiple of these episodes over the past year and is concerned. documented in this encounter Plan of Treatment Upcoming Encounters Date Type Department Care Team (Late st Contact Info) Description 01/01/2024 2:20 PM EST Office Visit General Internal Medicine [facility] [address] [facility] [place] [address] Dimas Lopez MD [address] [facility] [place] [address] 02/20/2024 2:30 PM EDT Office Visit Rheumatology [place] [id number] [facility] [place] [address] Courtney Juarez CRNP [facility] [place] [address] 02/23/2024 7:15 AM EDT Cardiac Studies Cardiac Studies, [facility] [address] [facility] [place] [address] 04/25/2024 10:00 AM EDT Nurse Only Ancillary [facility] [address] [place] [address] Im, Nurse Annual Wellness [facility] [address] [place] [address] 07/18/2024 10:00 AM EDT Imaging Radiology [facility] [address] [facility], [address] [place] [address] Scheduled Orders Name Type Priority Associated Diagnoses Orde r Schedule COMPREHENSIVE METABOLIC PANEL Lab Routine Nausea Generalized weakness Dizziness Palpitations Expected: 12/19/2023 (Approximate), Expires: 12/18/2024 TSH Lab Routine Nausea Generalized weakness Dizziness Palpitations Expected: 12/19/2023 (Approximate), Expires: 12/18/2024 CBC WITH WBC DIFFERENTIAL Lab Routine Nausea Generalized weakness Dizziness Palpitations Expected: 12/19/2023 (Approximate), Expires: 12/19/2024 EKG EKG Routine Nausea Generalized weakness Dizziness Expected: 12/19/2023 (Approximate), Expires: 01/16/2025 EXTERNAL EKG 8 TO 15 DAYS Holter Routine Nausea Generalized weakness Dizziness Palpitations Expected: 12/20/2023 (Approximate), Expires: 12/19/2024 ECHO, COMPLETE (2D), TRANS-THORACIC Echocardiology [facility] Palpitations Abnormal EKG Expected: 12/19/2023 (Approximate), Expires: 12/18/2024 Scheduled Procedures Name Priority Associated Diagnoses Date/Ti me COLONOSCOPY FLEXIBLE PROXIMAL DIAGNOSTIC Recall History of colon polyps Health Maintenance Due Date Last Done Comments COVID-19 Vaccine ( season) 2023 08/30/2022, 03/10/2022, 08/18/2021, Additional history [...] Discontinued 06/25/2021, 06/25/2021, 02/01/2018, Additional history exists VITAMIN D LEVEL ONCE IN A LIFETIME-USE SMARTSET# [id number] Completed 01/09/2023, 02/01/2022 Influenza Vaccine (FLU shot) Completed 07/25/2023, 07/13/2022, 07/16/2021, Additional history exists GARDASIL-HPV IMMUNIZATION SERIES Aged Out No longer eligible based on patient's age to complete this topic Hepatitis B Aged Out No longer eligi ble based on patient's age to complete this topic MENINGOCOCCAL (MENACTRA/MENVEO) Aged Out No longer eligible based on patient's age to complete this topic documented as of this encounter Medical Devices Not on filedocumented as of this encounter Visit Diagnoses Diagnosis Palpitations- Primary Flushing Nausea Nausea alone Generalized weakness Other malaise and fatigue Dizziness Dizziness and giddiness Abnormal EKG Nonspecific abnormal electrocardiogram (ECG) (EKG) documented in this encounter Advance Directives Documents on File Type Date Recorded Patient Homicide Detective Expl anation Advance Directives and Livin g Will 01/19/2018 LIVING WILL Power of Market Asset Protection Manager 01/19/2018 POWER OF A TTORNEY Care Teams Warehouser Relationship Specialty Start Date End Date Dimas Lopez MD [address] [facility] [place] [address] PCP - General Internal Medicine 06/01/22 documented as of this encounter
--- OUTSIDE RECORDS SUMMARY | 2024-01-26 13:35 | External Medical Summary | Summary of Care ---
Author Name Unknown Organization [facility] Address [address] [place] [address] Phone [phone] Care Team Providers Care Senior Project Engineer Name Role Phone Dimas Lopez MD Primary Care Provider + Reason for Referral * Precert (Within 24 hrs (call dept; emergent)) - Pending Review Specialty Diagnoses / Procedures Referred By Contac t Referred To Contact Cardiac Studies Diagnoses Palpitations Abnormal EKG Procedures ECHO, COMPLETE (2D), TRANS-THORACIC Dimas Lopez MD [address] [place] [address] Referral ID Status Reason Start Date Expiration Date Visits Requested Visits Authorized [id number] Pending Review Precert 12/19/2023 999 999 Reason [...] PM EST Office Visit General Internal Medicine [facility] [place] [address] [place] [address] Dimas Lopez MD [address] [facility] [place] [address] Palpitations*; Flushing; Nausea; Generalized weakness; Dizziness; Abnormal EKG Allergies Active Allergy Reactions Criticality Noted Date Comments Codeine Other (Please comment) 02/01/2018 Cough syrup with codeine "felt like I was drowning" "couldn't breathe" Dust Other (Please comment) 07/23/2015 sneezing documented as of this encounter (statuses as of 12/21/2023) Medications Medication Sig Dispensed Refills Start Date [...] as of this encounter (statuses as of 12/21/2023) Active Problems Problem Noted Date Diagnosed Date Mixed hyperlipidemia 05/11/2022 Senile osteoporosis 12/03/2021 Memory changes 09/03/2019 Chronic rhinitis 01/06/2018 GERD (gastroesophageal reflux disease) 2 Diverticulosis, sigmoid 07/04/2005 Overview: noted on 11/04/[address] barker GENERAL OSTEOARTHROSIS 11/21/2001 documented as of this encounter (statuses as of 12/21/2023) Resolved Problems Problem Noted Date Diagnosed Date Resolved Date Encounter for examination fo r normal comparison and control in clinical research program 06/11/2018 06/08/2020 Overview: DO NOT DELETE [facility] DETECT Study: Project # [id number], Bricklayer Paving Brick: Luis A Jameson, PhD. SUMMARY: Goal: Establish [...] contact study staff at ; after hours Bricklayer Paving Brick via the [facility] hospital willow machine operator . Please contact study team before resolving/deleting from patients problem list. Study phone number: [phone]. Diagnosis changed due to Research Module. Go to Snapshot for study details. Encounter for examination fo r normal comparison and control in clinical research program 06/11/2018 07/07/2022 Overview: DO NOT DELETE - [facility] DETECT Study: Project # [id number], Bricklayer Paving Brick: Fermin Brar, MS, MPH. SUMMARY: Goal: Establish [...] contact study staff at ; after hours Bricklayer Paving Brick via the [facility] hospital willow machine operator . - Please contact study team before resolving/deleting from patients problem list. Study phone number: [phone]. Diagnosis changed due to Research Module. Go [...] as of this encounter (statuses as of 12/21/2023) Immunizations Name Administration Dates Next Due COVID-19 mRNA, LNP-s, No Pre serve, 2-Dose Series (Neofonie) 08/18/2021,01/13/2021,12/18/2020 COVID-19, LNP-s, No Preserve , Manoj-sucrose, [...] Influenza, Trivalen t, Adjuvanted, 65+ yrs 08/01/2019 TD - Tetanus/Diptheria (ADULT) 06/17/2005 TDAP (age 11 and older)(Adacel) 05/12/2021,12/27 Typhoid [...] level: Not on file Occupational History Employer: [place] [id number] Occupation: retired Tobacco Use Smoking status: Never [...] performed by Rubén Lara MD at ENDOSCOPY [facility], ADENOMATOUS POLYPS REPEAT COLONOSCOPY IN 5 YEARS [...] performed by Rubén Lara MD at ENDOSCOPY [facility], ADENOMATOUS POLYPS REPEAT COLONOSCOPY IN 5 YEARS COLONOSCOPY, DIAGNOSTIC (RECTUM) 02/01/2018 TVA polyp, repeat 3 yrs/COLONOSCOPY FLEXIBLE PROXIMAL DIAGNOSTIC performed by Rubén Lara MD at ENDOSCOPY [facility] COLONOSCOPY, DIAGNOSTIC (RECTUM) 06/25/2021 Hx colon polyps, diverticulosis, normal exam- 5 year recall/COLONOSCOPY FLEXIBLE PROXIMAL DIAGNOSTIC performed by Rubén Lara MD at ENDOSCOPY [facility] EGD, FLEXIBLE, DIAGNOSTIC 07/21/2016 acid reflux on bx, HH, gastric polyps/ESOPHAGOGASTRODUODENOSCOPY (EGD), FLEXIBLE, TRANSORAL, DIAGNOSTIC performed by Nam Martinez MD at ENDOSCOPY [facility] EGD, FLEXIBLE, DIAGNOSTIC 07/12/2022 gastric fundic gland polyps / ESOPHAGOGASTRODUODENOSCOPY (EGD), FLEXIBLE, TRANSORAL, DIAGNOSTIC performed by Rubén Lara MD at ENDOSCOPY [facility] EGD, FLEXIBLE, INSERT WIRE, PASS DILATOR 10/10/2008 [...] PM EST Office Visit General Internal Medicine [facility] [address] [facility] [address] [place] [address] Dimas Lopez MD 200 [facility] [place] [address] 02/20/2024 2:30 PM EDT Office Visit Rheumatology [place] [address] [place] [address] Courtney Juarez CRNP [address] [place] [address] 02/23/2024 7:15 AM EDT Cardiac Studies Cardiac Studies, [facility] [address] [facility] [place] [address] 04/25/2024 10:00 AM EDT Nurse Only [facility] [address] [place] [address] Im, Nurse Annual Wellness [place] [address] [place] [address] 07/18/2024 10:00 AM EDT Imaging Radiology [facility] 1st [facility], [place] [address] [facility] [place] [address] Scheduled Orders Name Type Priority Associated Diagnoses [...] D LEVEL ONCE IN A LIFETIME-USE SMARTSET# [id number] Completed 01/09/2023, 02/01/2022 Influenza Vaccine (FLU shot) [...] Documents on File Type Date Recorded Patient Hull Drafter Expl anation Advance Directives and Livin g Will 01/19/2018 LIVING WILL Power of Interior Design Faculty Member 01/19/2018 POWER OF A TTORNEY Care Teams Senior Project Engineer Relationship Specialty Start Date End Date Dimas Lopez MD [address] [facility] [place] [address] PCP - General Internal Medicine 06/01/22 documented as of this encounter
--- OUTSIDE RECORDS SUMMARY | 2024-01-26 13:35 | External Medical Summary | Summary of Care ---
Author Name Unknown Organization [facility] Address [address] [place] [address] Phone [phone] Care Team Providers Care Index Clerk Name Role Phone Dimas Lopez MD Primary Care Provider + Reason for Referral * Evaluate & Treat - Unlimited Visits (Within 10 days (routine)) - Pending Review Specialty Diagnoses / Procedures Referred By Contact Referred To Contact Cardiovascular Medicine / Cardiology Diagnoses Palpitations Flushing Dizziness Abnormal EKG Dimas Lopez MD [address] [place] [address] Referral ID Status Reason Start Date Expiration Date Visits Requested Visits Authorized [id number] Pending Review Specialty Services Required 01/14/2024 999 999 Question Answer Referral Priority Within 10 days (routine) Where should this appointment be scheduled? [facility] To which of the following clinics are you referring your patient? General Cardiology Clinic * Precert (Within 24 hrs (call dept; emergent)) - Pending Review Specialty Diagnoses / Procedures Referred By Contac t Referred To Contact Cardiac Studies Diagnoses Palpitations Abnormal EKG Procedures ECHO, COMPLETE (2D), TRANS-THORACIC Dimas Lopez MD [address] [place] [address] Referral ID Status Reason Start Date Expiration Date Visits Requested Visits Authorized [id number] Pending Review Precert 12/19/2023 999 999 Reason [...] PM EST Office Visit General Internal Medicine [facility] [place] [address] [facility] [place] [address] Dimas Lopez MD 200 [facility] [place] [address] Palpitations*; Flushing; Nausea; Generalized weakness; Dizziness; Abnormal EKG Allergies Active Allergy Reactions Criticality Noted Date Comments Codeine Other (Please comment) 02/01/2018 Cough syrup with codeine "felt like I was drowning" "couldn't breathe" Dust Other (Please comment) 07/23/2015 sneezing documented as of this encounter (statuses as of 01/14/2024) Medications Medication Sig Dispensed Refills Start Date [...] as of this encounter (statuses as of 01/14/2024) Active Problems Problem Noted Date Diagnosed Date Mixed hyperlipidemia 05/11/2022 Senile osteoporosis 12/03/2021 Memory changes 09/03/2019 Chronic rhinitis 01/06/2018 GERD (gastroesophageal reflux disease) 2 documented as of this encounter (statuses as of 01/14/2024) Resolved Problems Problem Noted Date Diagnosed Date Resolved Date Encounter for examination fo r normal comparison and control in clinical research program 06/11/2018 06/08/2020 Overview: DO NOT DELETE [facility] DETECT Study: Project # [id number], Propagator Laborer: Luis A Jameson, PhD. SUMMARY: Goal: Establish [...] contact study staff at ; after hours Propagator Laborer via the [facility] hospital hooker operator . Please contact study team before resolving/deleting from patients problem list. Study phone number: [phone]. Diagnosis changed due to Research Module. Go to Snapshot for study details. Encounter for examination fo r normal comparison and control in clinical research program 06/11/2018 07/07/2022 Overview: DO NOT DELETE - [facility] DETECT Study: Project # [id number], Propagator Laborer: Fermin Brar, MS, MPH. SUMMARY: Goal: Establish [...] contact study staff at ; after hours Propagator Laborer via the [facility] hospital hooker operator . - Please contact study team before resolving/deleting from patients problem list. Study phone number: [phone]. Diagnosis changed due to Research Module. Go [...] as of this encounter (statuses as of 01/14/2024) Immunizations Name Administration Dates Next Due COVID-19 mRNA, LNP-s, No Pre serve, 2-Dose Series (Skeeble) 08/18/2021,01/13/2021,12/18/2020 COVID-19, LNP-s, No Preserve , Manoj-sucrose, [...] no cp, pressure. Had similar episode in [place] in August. No trigger. Also had episode [...] Maintenance Due Topic Date Due COVID-19 Vaccine (2022- season) 2023 ROS: CONSTITUTIONAL: No change in [...] level: Not on file Occupational History Employer: [place] [id number] Occupation: retired Tobacco Use Smoking status: Never [...] performed by Rubén Lara MD at ENDOSCOPY [facility], ADENOMATOUS POLYPS REPEAT COLONOSCOPY IN 5 YEARS Disease of pancreas Diverticulosis Dysphagia, unspecified(787.20) GERD (gastroesophageal reflux disease) Memory changes Mixed hyperlipidemia 05/11/2022 Osteoarthritis Other specified disorder of the esophagus esophageal dysfunction Palpitations Senile osteoporosis 12/03/2021 Past Surgical History: Procedure Laterality Date COLONOSCOPY 11/04/2002 normal exam with some diverticulosis, sigmoid COLONOSCOPY, DIAGNOSTIC (RECTUM) 11/01/2012 COLONOSCOPY FLEXIBLE PROXIMAL DIAGNOSTIC performed by Rubén Lara MD at [facility], ADENOMATOUS POLYPS REPEAT COLONOSCOPY IN 5 YEARS COLONOSCOPY, DIAGNOSTIC (RECTUM) 02/01/2018 TVA polyp, repeat 3 yrs/COLONOSCOPY FLEXIBLE PROXIMAL DIAGNOSTIC performed by Rubén Lara MD at ENDOSCOPY [facility] COLONOSCOPY, DIAGNOSTIC (RECTUM) 06/25/2021 Hx colon polyps, diverticulosis, normal exam- 5 year recall/COLONOSCOPY FLEXIBLE PROXIMAL DIAGNOSTIC performed by Rubén Lara MD at ENDOSCOPY [facility] EGD, FLEXIBLE, DIAGNOSTIC 07/21/2016 acid reflux on bx, HH, gastric polyps/ESOPHAGOGASTRODUODENOSCOPY (EGD), FLEXIBLE, TRANSORAL, DIAGNOSTIC performed by Nam Martinez MD at [facility] EGD, FLEXIBLE, DIAGNOSTIC 07/12/2022 gastric fundic gland polyps / ESOPHAGOGASTRODUODENOSCOPY (EGD), FLEXIBLE, TRANSORAL, DIAGNOSTIC performed by Rubén Lara MD at ENDOSCOPY [facility] EGD, FLEXIBLE, INSERT WIRE, PASS DILATOR 10/10/2008 [...] For: Labs Today documented in this encounter Procedure Notes * Lucas Hopper DO - 12/19/2023 3:16 PM ESTAssociated Order(s): EKG REASON FOR STUDY: palpitations CONCLUSIONS: Normal sinus rhythm Possible Left atrial enlargement Anteroseptal infarct (cited on or before 14-APR-2010) Abnormal ECG When compared with ECG of 22-OCT-2015 12:14, No significant change was found Ventricular Rate: 83 Atrial Rate: 83 CT Interval: 182 QRS Duration: 74 QT/QTc: 350/411 ms P-R-T [place]: 73 : 57 : 63 degrees * Jesse Pace MD - 12/19/2023 12:00 AM ESTAssociated Order(s): EXTERNAL EKG 8 TO 15 DAYS REASON FOR STUDY: palpitations CONCLUSIONS: Final Interpretation Indications: Palpitations Duration: 11 days, 22 hours Preliminary Findings Prepared by YU Valencia 01/10/24 Results: Patient had a min HR of 52 bpm, max HR of 200 bpm, and avg HR of 85 bpm. Predominant underlying rhythm was Sinus Rhythm. 79 Supraventricular Tachycardia runs occurred, the run with the fastest interval lasting 14 beats with a max rate of 200 bpm, the longest lasting 14.7 secs with an avg rate of 125 bpm. Isolated SVEs were occasional (2.2%, [address]12[address]), SVE Couplets were rare (<1.0%, 417), and SVE Triplets were rare (<1.0%, 113). Isolated VEs were rare (<1.0%, 54), VE Couplets were rare (<1.0%, 14), and VE Triplets were rare (<1.0%, 1). Inverted QRS complexes possibly due to inverted placement of device. No patient marker or diary entry submitted Impression: Sinus rhythm, average rate 85 beats per minute with occasional premature atrial beats and multiple short runs of nonsustained supraventricular tachycardia documented in this encounter Nursing Notes * [...] and is concerned. documented in this encounter Miscellaneous Notes * Addendum Note - Dimas Lopez MD - 01/14/2024 12:21 PM EDTAddended by: DIMAS LOPEZ on: 01/14/2024 12:21 PM Modules accepted: Orders documented in this encounter Plan of Treatment Upcoming Encounters Date Type Department Care Team (Late st Contact Info) Description 02/20/2024 2:30 PM EDT Office Visit Rheumatology [facility] [address] [facility] [place] [address] Courtney Juarez CRNP [address] [facility] [place] [address] 02/23/2024 7:15 AM EDT Cardiac Studies Cardiac Studies, [facility] 132 [facility] [place] [address] 04/25/2024 10:00 AM EDT Nurse Only [facility] 200 [facility] [place] [address] Im, Nurse Annual Wellness [facility] 200 [place] [address] 07/18/2024 10:00 AM EDT Imaging Radiology [facility] 1st [facility] 132 [facility] [place] [address] 09/02/2024 3:20 PM EDT Office Visit General Internal Medicine [facility] [address] [facility] [place] [address] Dimas Lopez MD [address] [facility] [place] [address] Scheduled Orders Name Type Priority Associated Diagnoses Orde r Schedule ECHO, COMPLETE (2D), TRANS-THORACIC Echocardiology MOHSEN Palpitations Abnormal EKG Expected: 12/19/2023 (Approximate), Expires: 12/18/2024 Scheduled Procedures Name Priority Associated Diagnoses Date/Ti me COLONOSCOPY FLEXIBLE PROXIMAL DIAGNOSTIC Recall History of colon polyps Scheduled Referrals Name Type Priority Associated Diagnoses Orde r Schedule CARDIOLOGY REFERRAL OP Referral Within 10 days (routine) Palpitations Flushing Dizziness Abnormal EKG Ordered: 01/14/2024 Health Maintenance Due Date Last Done Comments [...] D LEVEL ONCE IN A LIFETIME-USE SMARTSET# [id number] Completed 12/21/2023, 01/09/2023, 02/01/2022 GARDASIL-HPV IMMUNIZATION SERIES [...] Not on filedocumented as of this encounter Procedures Procedure Name Priority Date/Time Associated Diagnosis Comments CT ECG ROUTINE ECG W/LEAST 12 LDS I&R ONLY Routine 12/19/2023 3:16 PM EST Nausea Generalized weakness Dizziness CT EXTERNAL ECG RECGREATER THAN 7DLESS THAN 15D RECORDING Routine 12/19/2023 12:00 AM EST Nausea Generalized weakness Dizziness Palpitations documented in this encounter Results * TSH (12/21/2023 12:15 PM EST) TSH 1.49 0.27 - 4.20 uIU/mL 12/22/2023 12:19 AM EST [facility] Blood Venous blood specimen / Unknown Venipuncture / Unknown 12/21/2023 12:15 PM EST 12/21/2023 12:15 PM EST Dimas Lopez MD LAB BLOOD ORDERA BLES Performing Organization Address City/State/[facility] Co de Phone Number LABORATORY [facility] [address] [place] [address] * EKG (12/19/2023 3:16 PM EST) 12/19/2023 3:16 PM EST Narrative Procedure Note Lucas Hopper DO - 12/19/2023 3:16 PM EST REASON FOR STUDY: palpitations CONCLUSIONS: Normal sinus rhythm Possible Left atrial enlargement Anteroseptal infarct (cited on or before 14-APR-2010) Abnormal ECG When compared with ECG of 22-OCT-2015 12:14, No significant change was found Ventricular Rate: 83 Atrial Rate: 83 CT Interval: 182 QRS Duration: 74 QT/QTc: 350/411 ms P-R-T [place]: 73 : 57 : 63 degrees Dimas Lopez MD EKG Performing Organization Address [facility] de Phone Number [facility] * EXTERNAL EKG 8 TO 15 DAYS (12/19/2023 12:00 AM EST) 12/19/2023 Narrative Procedure Note Jesse Pace MD - 12/19/2023 12:00 AM EST REASON FOR STUDY: palpitations CONCLUSIONS: Final Interpretation Indications: Palpitations Duration: 11 days, 22 hours Preliminary Findings Prepared by YU Valencia 01/10/24 Results: Patient had a min HR of 52 bpm, max HR of 200 bpm, and avg HR of 85 bpm. Predominant underlying rhythm was Sinus Rhythm. 79 Supraventricular Tachycardia runs occurred, the run with the fastest interval lasting 14 beats with a max rate of 200 bpm, the longestlasting 14.7 secs with an avg rate of 125 bpm. Isolated SVEs were occasional (2.2%, [address]), SVE Couplets were rare (<1.0%, 417), and SVE Triplets were rare (<1.0%, 113). Isolated VEs were rare (<1.0%, 54), VE Couplets were rare (<1.0%, 14), and VE Triplets were rare (<1.0%, 1). InvertedQRS complexes possibly due to inverted placement of device. No patient marker or diary entry submitted Impression: Sinus rhythm, average rate 85 beats per minute withoccasional premature atrial beats and multiple short runs ofnonsustained supraventricular tachycardia Dimas Lopez MD [facility] documented in this encounter Visit Diagnoses Diagnosis Palpitations- Primary Flushing Nausea Nausea alone Generalized weakness Other malaise and fatigue Dizziness Dizziness and giddiness Abnormal EKG Nonspecific abnormal electrocardiogram (ECG) (EKG) documented in this encounter Advance Directives Documents on File Type Date Recorded Patient Rf Manager Expl anation Advance Directives and Gloriain irene Will 01/19/2018 LIVING WILL Power of Patient Coordinator 01/19/2018 POWER OF A TTORNEY Care Teams Index Clerk Relationship Specialty Start Date End Date Dimas Lopez MD [address] [place] [address] PCP - General Internal Medicine 06/01/22 documented as of this encounter
--- OUTSIDE RECORDS SUMMARY | 2024-01-26 13:35 | External Medical Summary ---
Author Name Unknown Address Unknown Organization K01:LAB[facility]ATORY [facility] - [address] [place] [address] Laboratory Report Ordering Provider Test Date Status YOSEPH DYSON 12/21/2023 12:15:49 Final Observation Date Value Abnormality Reference (Units ) Status Magnesium 12/21/2023 12:15:49 2.5 1.5-2.6 (m g/dL) Final Performing Location [facility] - [address] [place] [address]
--- OUTSIDE RECORDS SUMMARY | 2024-01-26 13:35 | External Medical Summary ---
Author Name Unknown Address Unknown Organization K01:LABORATORY [facility] - [address] [place] [address] Laboratory Report Ordering Provider Test Date Status YOSEPH DYSON 12/21/2023 12:15:49 Final Observation Date Value Abnormality Reference (Units ) Status TSH 12/21/2023 12:15:49 1.49 0.27-4.20 (uIU/mL) Final Performing Location [facility] - [address] [place] [address]
--- OUTSIDE RECORDS SUMMARY | 2024-01-26 13:35 | External Medical Summary ---
Author Name Unknown Address Unknown Organization K01:LABORATORY [facility] [address] [facility] [address] Laboratory Report Ordering Provider Test Date Status YOSEPH DYSON 12/21/2023 12:15:49 Final Observation Date Value Abnormality Reference (Units ) Status Triglyceride 12/21/2023 12:15:49 65 <=174 ( mg/dL) Final Triglyceride Reference Range s (mg/dL):
<150 Acceptable
150-174 Borderline high
175-499 High
>=500 Very high Cholesterol 12/21/2023 12:15:49 172 <200 (mg /dL) Final Total Cholesterol Reference Ranges (mg/dL):
<200 Desirable
200-239 Borderline high
>=240 High HDL 12/21/2023 12:15:49 89 >49 (mg/dL ) Final HDL Cholesterol Reference Ra nges (mg/dL):
>=60 High (Desirable)
<50 Low (Undesirable) For Females
<40 Low (Undesirable) For Males NON-HDL CHOLESTEROL 12/21/2023 12:15:49 83 <=159 (mg/dL) Final Non-HDL Cholesterol Referenc e Range (mg/dL):
<100 Target level for high risk ASCVD patient
<130 Optimal for general population
130-159 Near optimal for general population
160-189 Borderline High
190-219 High
>=220 Very High LDL, (calculated) 12/21/2023 12:15:49 70 <= 129 (mg/dL) Final LDL Cholesterol Reference Ra nges (mg/dL):
<70 Target level for high risk ASCVD patient
<100 Optimal for general population
100-129 Near optimal for general population
130-159 Borderline high
160-189 High
>=190 Very high Performing Location LABORATORY [facility] - [address] [facility] [address]
--- OUTSIDE RECORDS SUMMARY | 2024-01-26 13:35 | External Medical Summary | Summary of Care ---
Author Name Unknown Organization [facility] Address [address] [place] [address] Phone [phone] Care Team Providers Care Plant Protection Supervisor Name Role Phone Dimas Lopez MD Primary Care Provider + Reason for Visit * Reason Comments Outpatient Testing Encounter Details Date Type Department Care Team (Late st Contact Info) Description 12/21/2023 12:20 PM EST Laboratory Laboratory, [facility] [address] [place] [address] [facility] [address] [place] [address] Mixed hyperlipidemia; Senile osteoporosis; Encounter for long-term (current) use of medications; Nausea; Generalized weakness; Dizziness; Palpitations Allergies Active Allergy Reactions Criticality Noted Date [...] program 06/11/2018 06/08/2020 Overview: DO NOT DELETE [facility] DETECT Study: Project # [id number], Power Generation Technician: Luis A Jameson, PhD. SUMMARY: Goal: Establish [...] contact study staff at ; after hours Power Generation Technician via the [facility] orange peel operator . Please contact study team before resolving/deleting from patients problem list. Study phone number: [phone]. Diagnosis changed due to Research Module. Go to Snapshot for study details. Encounter for examination fo r normal comparison and control in clinical research program 06/11/2018 07/07/2022 Overview: DO NOT DELETE - [facility] Study: Project # [id number], Power Generation Technician: Fermin Brar, MS, MPH. SUMMARY: Goal: Establish [...] contact study staff at ; after hours Power Generation Technician via the [facility] orange peel operator . - Please contact study team before resolving/deleting from patients problem list. Study phone number: [phone]. Diagnosis changed due to Research Module. Go to Whyteboard for study details. Other chest pain 07/26/2010 [...] on file documented as of this encounter Plan of Treatment Upcoming Encounters Date Type Department Care Team (Late st Contact Info) Description 01/01/2024 2:20 PM EST Office Visit General Internal Medicine [facility] [address] [place] [address] [place], [place] [address] Dimas Lopez MD [address] [place], [place] [address] 02/20/2024 2:30 PM EDT Office Visit Rheumatology [place] [id number] [place] [address] Courtney Juarez CRNP [address] [place] [address] 02/23/2024 7:15 AM EDT Cardiac Studies Cardiac Studies, [facility] [address] [facility] [place] [address] 04/25/2024 10:00 AM EDT Nurse Only Ancillary [facility] [address] [place] [address] Im, Nurse Annual Wellness [facility] [address] [place] [address] 07/18/2024 10:00 AM EDT Imaging Radiology [facility] [address] [facility] [place] [address] Pending Results Name Type Priority Associated Diagnoses Date /Time COMPREHENSIVE METABOLIC PANEL Lab Routine Mixed hyperlipidemia 12/21/2023 12:15 PM EST LIPID PANEL WITH DIRECT LDL IF TG IS HIGH Lab Routine Mixed hyperlipidemia 12/21/2023 12:15 PM EST 25-HYDROXY VITAMIN D Lab Routine Senile osteoporosis 12/21/2023 12:15 PM EST VITAMIN B12 Lab Routine Encounter for long-term (current) use of medications 12/21/2023 12:15 PM EST MAGNESIUM Lab Routine Encounter for long-term (current) use of medications 12/21/2023 12:15 PM EST TSH Lab Routine Nausea Generalized weakness Dizziness Palpitations 12/21/2023 12:15 PM EST CBC WITH WBC DIFFERENTIAL Lab Routine Nausea Generalized weakness Dizziness Palpitations 12/21/2023 12:15 PM EST CBC Lab Routine Nausea Generalized weakness Dizziness Palpitations 12/21/2023 12:15 PM EST DIFFERENTIAL, AUTOMATED Lab Routine Nausea Generalized weakness Dizziness Palpitations 12/21/2023 12:15 PM EST Scheduled Procedures Name Priority Associated Diagnoses Date/Ti [...] D LEVEL ONCE IN A LIFETIME-USE SMARTSET# 33466 Completed 01/09/2023, 02/01/2022 Influenza Vaccine (FLU shot) [...] as of this encounter Visit Diagnoses Diagnosis Mixed hyperlipidemia Senile osteoporosis Encounter for long-term (current) use of medications Encounter for long-term (current) use of other medications Nausea Nausea alone Generalized weakness Other malaise and fatigue Dizziness Dizziness and giddiness Palpitations documented in this encounter Advance Directives Documents on File Type Date Recorded Patient Babysitter Expl anation Advance Directives and Zakiya bonilla Will 01/19/2018 LIVING WILL Power of Experimental Mechanic Spacecraft 01/19/2018 POWER OF A TTORNEY Care Teams Plant Protection Supervisor Relationship Specialty Start Date End Date Dimas Lopez MD [address] [place] [address] PCP - General Internal Medicine 06/01/22 documented as of this encounter
--- OUTSIDE RECORDS SUMMARY | 2024-01-26 13:35 | External Medical Summary ---
Author Name Unknown Address Unknown Organization K0G:[facility] [place] [address] [place] [address] Laboratory Report Ordering Provider Test Date Status YOSEPH DYSON 12/21/2023 12:15:49 Final Observation Date Value Abnormality Reference (Units ) Status SYNC LEUKOCYTES IN BLOOD BY AUTOMATED COUNT 12/21/2023 12:15:49 7.53 4.00-10.80 (K/uL) Final Segs 12/21/2023 12:15:49 66.4 40.0-75.0 (%) Final Lymphs % 12/21/2023 12:15:49 21.0 18.0-42.0 (%) Final Monos 12/21/2023 12:15:49 11.4 Above high normal 1.0-11.0 (%) Final Eosinophils 12/21/2023 12:15:49 0.8 0.0-6.0 (%) Final Basos 12/21/2023 12:15:49 0.4 0.0-2.0 (%) Final Absolute Segs 12/21/2023 12:15:49 5.00 1.80-7.70 (K/uL) Final Lymphs, absolute 12/21/2023 12:15:49 1.58 1.00-4.80 (K/ul) Final Monos, Abs 12/21/2023 12:15:49 0.86 0.00-1.10 (K/uL) Final Eos, Abs 12/21/2023 12:15:49 0.06 0.00-0.70 (K/uL) Final Basos, Abs 12/21/2023 12:15:49 0.03 0.00-0.20 (K/uL) Final Performing Location [facility] [place] [address]
--- OUTSIDE RECORDS SUMMARY | 2024-01-26 13:35 | External Medical Summary | Summary of Care ---
Author Name Unknown Organization [facility] Address [address] [place] [address] Phone [phone] Care Team Providers Care Supervisor Electronics Inspection Name Role Phone Dimas Lopez MD Primary Care Provider + Reason for Visit * Reason Comments Follow Up Patient presents for a 6 month follow up. Patient denied any new concerns. Encounter Details Date Type Department Care Team (Late st Contact Info) Description 01/01/2024 2:20 PM EST Office Visit General Internal Medicine [facility] [address] [place] [address] Dimas Lopez MD [address] [place] [address] Mixed hyperlipidemia*; Senile osteoporosis; Palpitations; Flushing Allergies Active Allergy Reactions Criticality Noted Date Comments Codeine Other (Please comment) 02/01/2018 Cough syrup with codeine "felt like I was drowning" "couldn't breathe" Dust Other (Please comment) 07/23/2015 sneezing documented as of this encounter (statuses as of 01/01/2024) Medications Medication Sig Dispensed Refills Start Date [...] as of this encounter (statuses as of 01/01/2024) Active Problems Problem Noted Date Diagnosed Date Mixed hyperlipidemia 05/11/2022 Senile osteoporosis 12/03/2021 Memory changes 09/03/2019 Chronic rhinitis 01/06/2018 GERD (gastroesophageal reflux disease) 2 documented as of this encounter (statuses as of 01/01/2024) Resolved Problems Problem Noted Date Diagnosed Date Resolved Date Encounter for examination fo r normal comparison and control in clinical research program 06/11/2018 06/08/2020 Overview: DO NOT DELETE [facility] DETECT Study: Project # [id number], Test Manager: Luis A Jameson, PhD. SUMMARY: Goal: Establish [...] contact study staff at ; after hours Test Manager via the [facility] ball truing machine operator . Please contact study team before resolving/deleting from patients problem list. Study phone number: [phone]. Diagnosis changed due to Research Module. Go to Snapshot for study details. Encounter for examination fo r normal comparison and control in clinical research program 06/11/2018 07/07/2022 Overview: DO NOT DELETE - [facility] DETECT Study: Project # [id number], Test Manager: Fermin Brar, MS, MPH. SUMMARY: Goal: Establish [...] contact study staff at ; after hours Test Manager via the [facility] ball truing machine operator . - Please contact study team before resolving/deleting from patients problem list. Study phone number: [phone]. Diagnosis changed due to Research Module. Go [...] as of this encounter (statuses as of 01/01/2024) Immunizations Name Administration Dates Next Due COVID-19 mRNA, LNP-s, No Pre serve, 2-Dose Series ([employer]) 08/18/2021,01/13/2021,12/18/2020 COVID-19, LNP-s, No Preserve , Manoj-sucrose, [...] Sign Reading Time Taken Comments Blood Pressure 114/66 01/01/2024 2:13 PM EST Pulse 90 01/01/2024 2:13 PM EST Temperature 36.6 C (97.9 F) 01/01/2024 2:13 PM ES T Respiratory Rate - - Oxygen Saturation 97% 01/01/2024 2:13 PM EST Inhaled Oxygen Concentration - - Weight 62.5 kg (137 lb 12.8 oz) 01/01/2024 2:13 PM EST Height 167.6 cm (5' 6") 01/01/2024 2:13 PM EST Body Mass Index 22.24 01/01/2024 2:13 PM EST documented in this encounter Progress Notes * Dimas Lopez MD - 01/01/2024 2:28 PM EST Chief Complaint Patient presents with Follow Up Patient presents for a 6 month follow up. Patient denied any new concerns. SUBJECTIVE: Mai Quintana is a 73 year old female with PMH as below who presents for f/u osteoporosis, lipids, flushing, palpitations,. No more palpitations or flushing since last ov. Still wearing zio, returns tomorrow. No cp, sob, flores. Gets prolia still Patient Active Problem List Diagnosis Code GERD (gastroesophageal reflux disease) K21.9 Chronic rhinitis J31.0 Memory changes R41.3 Senile osteoporosis M81.0 Mixed hyperlipidemia E78.2 Current Outpatient Medications Medication Sig Dispense Refill MULTIVITAMINS PO TABS once daily 0 0 CALCIUM 600-D 600-400 MG-UNIT PO TABS one tablet by mouth daily Tylenol 325 MG Oral Capsule (Acetaminophen) Take by mouth. Vitamin D (Cholecalciferol) 25 MCG (1000 UT) Oral Capsule Take by mouth . Prolia 60 MG/ML Subcutaneous Solution Prefilled Syringe (Denosumab) Inject 60 mg under the skin once. Pantoprazole Sodium 40 MG Oral Tablet Delayed [...] BY MOUTH BEFORE BEDTIME 90 Tablet 1 No current facility-administered medications for this visit. Review of patient's allergies indicates: Allergen Reactions Codeine Other (Please comment) Cough syrup with codeine "felt like I was drowning" "couldn't breathe" Dust Other (Please comment) sneezing Health Maintenance Due Topic Date Due COVID-19 Vaccine ( season) 2023 ROS: CONSTITUTIONAL: No change in weight, No weakness, and No fevers, sweats, or chills EYE: No recent significant change in vision, No eye pain, redness, discharge, and No diplopia EARS: No ear pain, No drainage, No tinnitus or vertigo, and No recent change in hearing PULMONARY: No cough, sputum, or hemoptysis, No wheezing, No rales, No shortness of breath, and No recent change in breathing CARDIOVASCULAR: No chest pain, No shortness of breath, No dyspnea on exertion, No orthopnea, No paroxysmal nocturnal dyspnea, No edema, No palpitations, and No syncope GASTROINTESTINAL: No abdominal pain, No change in bowel habits, No significant heartburn, No significant change in appetite, No nausea, vomiting, diarrhea, or constipation, No hematemesis, No blood in stools or black tarry stools, No abdominal bloating or early satiety, and No dysphagia ALL OTHER SYSTEMS NEGATIVE I reviewed social, PMH, PSH, and family history and updated where needed. Social History Socioeconomic History Marital status: Spouse name: Pascual Number of children: 2 Years of education: Not on file Highest education level: Not on file Occupational History Employer: [employer] [id number] Occupation: retired Tobacco Use Smoking status: Never [...] History: Diagnosis Date Benign neoplasm of colon 11/01/2012 COLONOSCOPY FLEXIBLE PROXIMAL DIAGNOSTIC performed by Rubén Lara MD at ENDOSCOPY [facility], ADENOMATOUS POLYPS REPEAT COLONOSCOPY IN 5 YEARS Disease of pancreas Diverticulosis Diverticulosis, sigmoid noted on 11/04/[address] barker Dysphagia, unspecified(787.20) GENERAL OSTEOARTHROSIS GERD (gastroesophageal reflux disease) Memory changes Mixed hyperlipidemia 05/11/2022 Osteoarthritis Other specified disorder of the esophagus esophageal dysfunction Palpitations Senile osteoporosis 12/03/2021 Past Surgical History: Procedure Laterality Date COLONOSCOPY 11/04/2002 normal exam with some diverticulosis, sigmoid COLONOSCOPY, DIAGNOSTIC (RECTUM) 11/01/2012 COLONOSCOPY FLEXIBLE PROXIMAL DIAGNOSTIC performed by Rubén Lara MD at [facility]COPY [facility], ADENOMATOUS POLYPS REPEAT COLONOSCOPY IN 5 YEARS COLONOSCOPY, DIAGNOSTIC (RECTUM) 02/01/2018 TVA polyp, repeat 3 yrs/COLONOSCOPY FLEXIBLE PROXIMAL DIAGNOSTIC performed by Rubén Lara MD at ENDOSCOPY [facility] COLONOSCOPY, DIAGNOSTIC (RECTUM) 06/25/2021 Hx colon polyps, diverticulosis, normal exam- 5 year recall/COLONOSCOPY FLEXIBLE PROXIMAL DIAGNOSTIC performed by Rubén Lara MD at ENDOSCOPY [facility] EGD, FLEXIBLE, DIAGNOSTIC 07/21/2016 acid reflux on bx, HH, gastric polyps/ESOPHAGOGASTRODUODENOSCOPY (EGD), FLEXIBLE, TRANSORAL, DIAGNOSTIC performed by Nam Martinez MD at ENDOSCOPY [facility] EGD, FLEXIBLE, DIAGNOSTIC 07/12/2022 gastric fundic gland polyps / ESOPHAGOGASTRODUODENOSCOPY (EGD), FLEXIBLE, TRANSORAL, DIAGNOSTIC performed by Rubén Lara MD at ENDOSCOPY [facility] EGD, FLEXIBLE, INSERT WIRE, PASS DILATOR [...] Bipolar Disorder Son OBJECTIVE: PHYSICAL EXAM: BP 114/66 | Pulse 90 | Temp 36.6 C (97.9 F) (Tympanic) | Ht 1.676 m (5' 6") | Wt 62.5 kg (137 lb 12.8 oz) | SpO2 97% | BMI 22.24 kg/m | BSA 1.71 m General: alert, healthy, and no distress Head: Normocephalic, No masses, lesions, or abnormalities Eye Exam: conjunctiva are pink and non-injected, sclera clear Ears: External ears normal, Canals clear, TM's Normal Heart: regular rate & rhythm, no murmur, no gallops, PMI non-displaced, S-1 normal, and S-2 normal Lungs: normal respiratory rate and rhythm, lungs clear to auscultation Extremities: no edema, no clubbing, no cyanosis Neuro Exam: alert with fluent speech, gait normal I reviewed last gfr, lft, glucose, lipid, tsh, cbc ASSESSMENT: E78.2 Mixed hyperlipidemia (primary encounter diagnosis) M81.0 Senile osteoporosis R00.2 Palpitations R23.2 Flushing PLAN: Mixed hyperlipidemia (Primary) Cont rosuvastatin Senile osteoporosis Cont prolia Palpitations Await zio Flushing Await zio Follow Up: Return in about 6 months (around 07/01/2024), or if symptoms worsen or fail to improve. Dimas Lopez MD documented in this encounter Nursing Notes * Lita Zavala MED ASSIST - 01/01/2024 2:16 PM EST Chief Complaint Patient presents with Follow Up Patient presents for a 6 month follow up. Patient denied any new concerns. documented in this encounter Plan of Treatment Upcoming Encounters Date Type Department Care Team (Late st Contact Info) Description 02/20/2024 2:30 PM EDT Office Visit Rheumatology [place] [id number] [facility] [place] [address] Courtney Juarez CRNP [address] [place] [address] [place] [address] 02/23/2024 7:15 AM EDT Cardiac Studies Cardiac Studies, [facility] [address] [facility] [place] [address] 04/25/2024 10:00 AM EDT Nurse Only Ancillary [facility] [address] [place] [address] Im, Nurse Annual Wellness [facility] [address] [place] [address] 07/18/2024 10:00 AM EDT Imaging Radiology [address] [place] [address] 09/02/2024 3:20 PM EDT Office Visit General Internal Medicine [facility] [address] [facility] [place] [address] Dimas Lopez MD [address] [facility] [place] [address] Scheduled Procedures Name Priority Associated Diagnoses Date/Ti [...] D LEVEL ONCE IN A LIFETIME-USE SMARTSET# [id number] Completed 12/21/2023, 01/09/2023, 02/01/2022 GARDASIL-HPV IMMUNIZATION SERIES [...] of this encounter Visit Diagnoses Diagnosis Mixed hyperlipidemia- Primary Senile osteoporosis Palpitations [place] documented in this encounter Advance Directives Documents on File Type Date Recorded Patient Crew Mess Attendant Expl anation Advance Directives and Livin g Will 01/19/2018 LIVING WILL Power of Grease Refining Supervisor 01/19/2018 POWER OF A TTORNEY Care Teams Supervisor Electronics Inspection Relationship Specialty Start Date End Date Dimas Lopez MD [address] [facility], [place] [id number] PCP - General Internal Medicine 06/01/22 documented as of this encounter
--- OUTSIDE RECORDS SUMMARY | 2024-01-26 13:35 | External Medical Summary ---
Author Name Unknown Address Unknown Organization K01:[facility] [address] [place] [address] Laboratory Report Ordering Provider Test Date Status YOSEPH DYSON 12/21/2023 12:15:49 Final Deficient: <20 ng/mL
Ins ufficient: 20-29 ng/mL
Recommended/Optimum:30-50 ng/mL

Vitamin D intoxication is rare. If suspicious of Vitamin D toxicity, evaluation of serum Calcium and PTH is recommended. Observation Date Value Abnormality Reference (Units ) Status 25-OH Vitamin D total 12/21/2023 12:15:49 35 >19 (ng/mL) Final Performing Location [facility] [address] [place] [address]
--- OUTSIDE RECORDS SUMMARY | 2024-01-26 13:35 | External Medical Summary ---
Author Name Unknown Address Unknown Organization K0G:[facility] [place] [address] - [address] [place] [address] Laboratory Report Ordering Provider Test Date Status DO KIELWILLOW 12/21/2023 12:15:49 Final Observation Date Value Abnormality Reference (Units ) Status BUN 12/21/2023 12:15:49 19 6-20 (mg/dL) Final Creatinine 12/21/2023 12:15:49 0.8 0.5-1.0 (mg/dL) Final Glomerular filtration rate/1.73 sq M.predicted [Volume Rate/Area] in Serum, Plasma or Blood by Creatinine-based formula (CKD-EPI) 12/21/2023 12:15:49 80 >=60 (mL/min) Final eGFR is calculated based on the CKD-EPI 2020 equation SODIUM 12/21/2023 12:15:49 142 135-146 (m mol/L) Final Potassium 12/21/2023 12:15:49 4.4 3.5-5.1 (m mol/L) Final Cl 12/21/2023 12:15:49 104 98-107 (mm ol/L) Final CO2 12/21/2023 12:15:49 24 22-32 (mmo l/L) Final Anion gap 12/21/2023 12:15:49 14 7-15 (mmol /L) Final Glucose 12/21/2023 12:15:49 93 70-120 (mg /dL) Final Albumin 12/21/2023 12:15:49 4.5 3.8-5.0 (g /dL) Final AST (Aspartate aminotransferase) 12/21/2023 12:15:49 20 10-35 (U/L) Final Alk Phos 12/21/2023 12:15:49 75 35-130 (U/ L) Final Bilirubin, Total 12/21/2023 12:15:49 0.4 <=1 .2 (mg/dL) Final Calcium 12/21/2023 12:15:49 9.6 8.4-10.2 ( mg/dL) Final Protein 12/21/2023 12:15:49 7.1 6.0-8.3 (g /dL) Final ALT (Alanine aminotransferase) 12/21/2023 12:15:49 24 10-35 (U/L) Final Performing Location [facility]ORY [place] [address] [facility] [address]
--- OUTSIDE RECORDS SUMMARY | 2024-01-26 13:35 | External Medical Summary | Summary of Care ---
Author Name Unknown Organization [facility] Address [address] [place] [address] Phone [phone] Care Team Providers Care Copywriting Intern Name Role Phone Dimas Lopez MD Primary Care Provider + Reason for Visit * Reason Comments NEW PATIENT Last seen 2011 for p alpitations, PACs. * Evaluate & Treat - Unlimited Visits (Within 10 days (routine)) - Pending Review Specialty Diagnoses / Procedures Referred By Contact Referred To Contact Cardiovascular Medicine / Cardiology Diagnoses Palpitations Flushing Dizziness Abnormal EKG Dimas Lopez MD [address] [place] [address] Referral ID Status Reason Start Date Expiration Date Visits Requested Visits Authorized [id number] Pending Review Specialty Services Required 01/14/[phone] Encounter Details Date Type Department Care Team (Latest Contact Info) Description 01/17/2024 11:00 AM EDT Office Visit Cardiology, [facility] [address] [place] [address] Lucas Hopper, [address] [place] [address] PSVT (paroxysmal supraventricular tachycardia)*; Heart palpitations; Dyslipidemia; Nonspecific abnormal electrocardiogram (ECG) (EKG) Allergies Active Allergy Reactions Criticality Noted Date Comments Codeine Other (Please comment) 02/01/2018 Cough syrup with codeine "felt like I was drowning" "couldn't breathe" Dust Other (Please comment) 07/23/2015 sneezing documented as of this encounter (statuses as of 01/17/2024) Medications Medication Sig Dispensed Refills Start Date [...] as of this encounter (statuses as of 01/17/2024) Active Problems Problem Noted Date Diagnosed Date Mixed hyperlipidemia 05/11/2022 Senile osteoporosis 12/03/2021 Memory changes 09/03/2019 Chronic rhinitis 01/06/2018 GERD (gastroesophageal reflux disease) 2 documented as of this encounter (statuses as of 01/17/2024) Resolved Problems Problem Noted Date Diagnosed Date Resolved Date Encounter for examination fo r normal comparison and control in clinical research program 06/11/2018 06/08/2020 Overview: DO NOT DELETE [facility] [place] DETECT Study: Project # [id number], Branch Operation Evaluation Manager: Luis A Jameson, PhD. SUMMARY: Goal: [...] contact study staff at ; after hours Branch Operation Evaluation Manager via the [facility] quick mixer operator . Please contact study team before resolving/deleting from patients problem list. Study phone number: [phone]. Diagnosis changed due to Research Module. Go to Snapshot for study details. Encounter for examination fo r normal comparison and control in clinical research program 06/11/2018 07/07/2022 Overview: DO NOT DELETE - Jorge DURÁN Study: Project # [id number], Branch Operation Evaluation Manager: Fermin Brar, MS, MPH. SUMMARY: Goal: [...] contact study staff at ; after hours Branch Operation Evaluation Manager via the [facility] quick mixer operator . - Please contact study team before resolving/deleting from patients problem list. Study phone number: [phone]. Diagnosis changed due to Research Module. Go [...] as of this encounter (statuses as of 01/17/2024) Immunizations Name Administration Dates Next Due COVID-19 mRNA, LNP-s, No Pre serve, 2-Dose Series (Inform Direct) 08/18/2021,01/13/2021,12/18/2020 COVID-19, LNP-s, No Preserve , Manoj-sucrose, [...] Sign Reading Time Taken Comments Blood Pressure 126/80 01/17/2024 11:05 AM EDT Pulse 88 01/17/2024 11:05 AM EDT Temperature - - Respiratory Rate 16 01/17/2024 11:05 AM EDT Oxygen Saturation - - Inhaled Oxygen Concentration - - Weight 62 kg (136 lb 11.2 oz) 01/17/2024 11:05 A M EDT Height - - Body Mass Index 22.06 01/01/2024 2:13 PM EST documented in this encounter Progress Notes * Lucas Hopper DO - 01/17/2024 11:05 AM EDT Cardiology Consultation Reason for consult: Palpitations, flushing, dizziness, abnormal ECG History of Present Illness: 73 year old female presents for evaluation of palpitations, dizziness, and flushing. Previously evaluated by the undersigned in 2011 due to palpitations. At that time symptoms attributed to sensed supraventricular ectopy. Most recent Zio monitor demonstrating frequent runs of paroxysmal supraventricular tachycardia. Describes approximately 4 episodes of significant tachycardia with associated flushing and lightheadedness over the past 9 months. First episode occurred in [place] in setting of excessive heat and possible dehydration. Treated by EMS with IV hydration and electrolytes. Second occurred in August while vacationing in [place]. More recently her symptoms recurred while lying in bed associated with lower extremity discomfort. In general, symptoms lasted more than 10 minutes and spontaneously resolved.No associated chest discomfort. Feeling well over the past few weeks. Active daily without restriction. Walking her dog up to 1.5 miles daily. Denies orthopnea, PND, or lower extremity edema. ECG 12/19/2023 personally reviewed: Normal sinus rhythm, possible left atrial enlargement, can not exclude age indeterminate anteroseptal infarct. Compared to ECG dated October 22, 2015, there is no significant change. Cardiac Studies: Zio monitor (rhythm strips personally reviewed) December 19, 2023: Patient had a min HR of 52 bpm, max HR of 200 bpm, and avg HR of 85 bpm. Predominant underlying rhythm was Sinus Rhythm. 79 Supraventricular Tachycardia runs occurred, the run with the fastest interval lasting 14 beats with a max rate of 200 bpm, the longest lasting 14.7 secs with an avg rate of 125 bpm. Isolated SVEs were occasional (2.2%, 03200), SVE Couplets were rare (<1.0%, 417), and [...] and multiple short runs of nonsustained supraventricular tachycardia. 2D echocardiogram report October 26, 2015: The left ventricular cavity size is normal. The LV wall thickness is borderline increased (concentric). The left ventricular wall motion is normal. The qualitative LV ejection fraction is >70% (hyperdynamic). No significant valvular disease is present. Stress echo 09/2010: This was a normal stress echocardiogram. High workload achieved. Normal resting wall motion and no stress-induced wall motion abnormality. The study was technicallyadequate. There is no comparison study available. The left ventricular systolic function is normal. Qualitative LV ejection Fraction = 65-70%. There is trace tricuspid regurgitation. Past Medical History: Patient Active Problem List Diagnosis Code GERD (gastroesophageal reflux disease) K21.9 Chronic rhinitis J31.0 Memory changes R41.3 Senile osteoporosis M81.0 Mixed hyperlipidemia E78.2 Past Surgical History: Procedure Laterality Date COLONOSCOPY 11/04/2002 normal exam with some diverticulosis, sigmoid COLONOSCOPY, DIAGNOSTIC (RECTUM) 11/01/2012 COLONOSCOPY FLEXIBLE PROXIMAL DIAGNOSTIC performed by Rubén Lara MD at ENDOSCOPY [facility], ADENOMATOUS POLYPS REPEAT COLONOSCOPY IN 5 YEARS COLONOSCOPY, DIAGNOSTIC (RECTUM) 02/01/2018 TVA polyp, repeat 3 yrs/COLONOSCOPY FLEXIBLE PROXIMAL DIAGNOSTIC performed by Rubén Lara MD at ENDOSCOPY [facility] COLONOSCOPY, DIAGNOSTIC (RECTUM) 06/25/2021 Hx colon polyps, diverticulosis, normal exam- 5 year recall/COLONOSCOPY FLEXIBLE PROXIMAL DIAGNOSTIC performed by Rubén Lara MD at ENDOSCOPY [facility] EGD, FLEXIBLE, DIAGNOSTIC 07/21/2016 acid reflux on bx, HH, gastric polyps/ESOPHAGOGASTRODUODENOSCOPY (EGD), FLEXIBLE, TRANSORAL, DIAGNOSTIC performed by Nam Martinez MD at ENDOSCOPY [facility] EGD, FLEXIBLE, DIAGNOSTIC 07/12/2022 gastric fundic gland polyps / ESOPHAGOGASTRODUODENOSCOPY (EGD), FLEXIBLE, TRANSORAL, DIAGNOSTIC performed by Rubén Lara MD at ENDOSCOPY [facility] EGD, FLEXIBLE, INSERT WIRE, PASS DILATOR 10/10/2008 EGD, FLEXIBLE, INSERT WIRE, PASS DILATOR 01/10/2012 dilatation gastric polyps BENIGN EGD, FLEXIBLE, W/BIOPSY 09/05/2008 bx's taken/minimaL GASTRIC INFLAMMATION TOTAL ABD HYSTERECTOMY W/WO REMOVAL OF TUBE(S) 2001 mass on ovary Family History: Denies family history of premature coronary disease or sudden cardiac . Family History Problem Relation Age of Onset Diabetes Mother Heart Disorder Mother Hypertension Mother Autoimmune disease Mother like GCA Cancer Father prostate-metastatic to kidneys Eye Problems Sister glaucoma Other (Other) Sister circulatory No Known Problems Daughter Bipolar Disorder Son Family Status Relation Status Mo Fa Sis Alive glaucoma Simon Alive adopted Son Alive Social History: Lifelong nonsmoker Social History Socioeconomic History Marital status: Spouse name: Aleksandrsord Number of children: 2 Years of education: Not on file Highest education level: Not on file Occupational History Employer: [employer] Occupation: retired Tobacco Use Smoking status: Never [...] on file Housing Stability: Not on file Social History Social History Narrative for 50 years. Lives with ROS: All others negative other than those noted in the HPI. Review of patient's allergies indicates: Allergen Reactions Codeine Other (Please comment) Cough syrup with codeine "felt like I was drowning" "couldn't breathe" Dust Other (Please comment) sneezing Current Outpatient Medications Medication Sig Dispense Refill [...] No current facility-administered medications for this visit. OBJECTIVE/PHYSICAL EXAMINATION: BP 126/80 (BP Site: Left Arm, BP Position: Sitting, BP Cuff Size: Regular) | Pulse 88 | Resp 16 | Wt 62 kg (136 lb 11.2 oz) | BMI 22.06 kg/m | BSA 1.7 m General: NAD, AAO x3, well nourished. HEENT: Normocephalic. Atraumatic. Conjunctiva pink, no scleral icterus. No carotid bruits, the carotid upstrokes are brisk. No JVD. No HJR Heart: Regular normal S-1 and S-2 no S-3 or S-4 gallop. No murmurs or rubs appreciated. PMI is not displaced. No RV heave.Lungs: Clear bilateral without rales , rhonchi, or wheeze. Abdomen: Normal bowel sounds. Soft. Nontender. No masses or organomegaly. No abdominal bruits. Extremities: No clubbing, cyanosis, or edema.Pulses: radial=2/4, Dorsalis pedis =2/4, posterior tibial=2/4. Neuro: No focal deficits. IMPRESSION: 1. Paroxysmal supraventricular tachycardia 2. Abnormal resting ECG suggesting possible age indeterminate anteroseptal infarct dating back to 2011. No regional wall motion abnormalities with preserved LV systolic function per echocardiogram October 26, 2015. 3. Dyslipidemia - controlled, most recent LDL 70 mg/dL RECOMMENDATIONS/PLAN: Results of recent Zio monitor discussed demonstrating frequent runs of paroxysmal supraventricular tachycardia. Natural history and pathophysiology of paroxysmal supraventricular tachycardia reviewed. Discussed appropriate use of Valsalva maneuvers. Recommend beta-dahlia therapy. Potential side effects reviewed. Patient agreeable to metoprolol tartrate 25 mg twice daily. Consider titration and/or transition to succinate formulation pending efficacy/tolerance. Proceed with resting 2D transthoracic echocardiogram as ordered. Continue rosuvastatin 5 mg daily. Follow Up: Return in about 6 weeks (around 02/28/2024). I spent a total of 40-54 minutes (exact time 42 mins) on the date of service in preparation, delivery, and documentation of the care provided to Mai Quintana excluding any time spent in the performance of separately billed services. Lucas Hopper DO, [facility] - [facility] documented in this encounter Nursing Notes * Kristin Rubio CMA - 01/17/2024 11:02 AM EDT Chief Complaint Patient presents with NEW PATIENT Last seen 2011 for palpitations, PACs. Examination Room: 11 Name: Mai Quintana Date of : (1950). Reason for Visit: [facility] patient referral from [facility] Interim Hospitalization(s): none Problems/Concerns: Episodes of hot flashes, nausea, palpitations, dizziness/lightheadedness, fatigue, weakness occurring several times over the past year. Chest Pain/SOB: Denies CP. SOB with episodes [facility] Discussed: Not applicable [facility] is a way you can talk to your provider online through e-mail. Would you like to sign up? I can activate it for you? ALREADY ACTIVE Patient was instructed to not get up on the exam table until directed and assisted by their provider; patient is to remain seated in the chair/ wheelchair/ exam table for fall prevention and safety reasons. Patient is aware to have assistance to step down off exam table with personnel. Patient voiced full comprehension of instructions. documented in this encounter Plan of Treatment Upcoming Encounters Date Type Department Care Team (Late st Contact Info) Description 02/20/2024 2:30 PM EDT Office Visit Rheumatology [facility] [address] [facility] [place] [address] Courtney Juarez CRNP [address] [facility] [place] [address] 02/23/2024 7:15 AM EDT Cardiac Studies Cardiac Studies, [facility] [address] [facility] [place] [address] 04/25/2024 10:00 AM EDT Nurse Only Ancillary [facility] [address] [place] [address] Im, Nurse Annual Wellness [facility] [address] [place] [address] 07/18/2024 10:00 AM EDT Imaging Radiology [facility] [address] [facility] [address] [facility] [place] [address] 09/02/2024 3:20 PM EDT Office Visit General Internal Medicine [facility] [address] [place] [address] Dimas Lopez MD [address] [place] [address] Scheduled Procedures Name Priority Associated Diagnoses Date/Ti [...] D LEVEL ONCE IN A LIFETIME-USE SMARTSET# [id number] Completed 12/21/2023, 01/09/2023, 02/01/2022 GARDASIL-HPV IMMUNIZATION SERIES [...] as of this encounter Visit Diagnoses Diagnosis PSVT (paroxysmal supraventricular tachycardia)- Primary Paroxysmal supraventricular tachycardia Heart palpitations Palpitations Dyslipidemia Other and unspecified hyperlipidemia Nonspecific abnormal electrocardiogram (ECG) (EKG) documented in this encounter Advance Directives Documents on File Type Date Recorded Patient Install And Repair Technician Expl anation Advance Directives and Livin g Will 01/19/2018 LIVING WILL Power of Radiation Oncology Manager 01/19/2018 POWER OF A TTORNEY Care Teams Copywriting Intern Relationship Specialty Start Date End Date Dimas Lopez MD [address] [place] [address] PCP - General Internal Medicine 06/01/22 documented as of this encounter
--- OUTSIDE RECORDS SUMMARY | 2024-01-26 13:35 | External Medical Summary ---
Author Name Unknown Address Unknown Organization K01:[facility] [place] [address] [place] [address] Laboratory Report Ordering Provider Test Date Status YOSEPH DYSON 12/21/2023 12:15:49 Final Observation Date Value Abnormality Reference (Units ) Status Vitamin B12 12/21/2023 12:15:49 [id number] (pg/mL) Final Performing Location [facility]ATORY [facility] - [address] [place] [address]
--- OUTSIDE RECORDS SUMMARY | 2024-01-26 13:36 | External Medical Summary | Summary of Care ---
Author Name Unknown Organization [facility] Address [address] [place] [address] Phone [phone] Care Team Providers Care Clinical Writer Name Role Phone Dimas Lopez MD Primary Care Provider + Reason for Visit * Reason Onset Date Comments Medication Administration 08/16/2023 Prolia * Precert (Within 30 days (routine)) - Closed Specialty Diagnoses / Procedures Referred By Contac t Referred To Contact Diagnoses Age-related osteoporosis without current pathological fracture Procedures DE DENOSUMAB INJECTION Joana Edmonds PA-C [address] [place] [address] Joana Edmonds PA-C [address] [facility] [place] [address] Referral ID Status Reason Start Date Expiration Date V isits Requested Visits Authorized [id number] Closed Precert 02/06/2023 02/05/2024 2 2 Encounter Details Date Type Department Care Team Description 08/16/2023 Nurse Only Rheumatology [facility] [address] [place] [address] Pf, Nurse Rheum [address] [place] [address] Medication Administration (Prolia) Allergies Active Allergy Reactions Severity Noted Date Comments Codeine Other (Please comment) 02/01/2018 Cough syrup with codeine "felt like I was drowning" "couldn't breathe" Dust Other (Please comment) 07/23/2015 sneezing documented as of this encounter (statuses as of 08/16/2023) Medications Medication Sig Dispensed Refills Start Date [...] mg under the skin once. 0 Active Famotidine 20 MG Oral Tablet (Pepcid)Indications:Ga stroesophageal reflux disease without esophagitis,Oropharyng eal dysphagia TAKE 1 TABLET BY MOUTH BEFORE BEDTIME 90 Tablet 1 03/22/2023 Active Pantoprazole Sodium 40 MG Oral Tablet [...] AT BEDTIME 90 Tablet 3 04/12/2023 Active Hospital, Clinic, or Other Facility Administered Medication Ordered Dose Route Frequency Start Date End Date Status Denosumab (Prolia) subcut inj 60 mgIndications:Senile osteoporosis 60 mg SC ONCE 08/16/2023 08/16/2023 Ended documented as of this encounter (statuses as of 08/16/2023) Active Problems Problem Noted Date Mixed hyperlipidemia 05/11/2022 Senile osteoporosis 12/03/2021 Memory changes 09/03/2019 Chronic rhinitis 01/06/2018 GERD (gastroesophageal reflux disease) 0 12/22/2011 Diverticulosis, sigmoid 07/04/2005 Overview: noted on 11/04/[address] barker GENERAL OSTEOARTHROSIS 11/21/2001 documented as of this encounter (statuses as of 08/16/2023) Resolved Problems Problem Noted Date Resolved Date Encounter for examination fo r normal comparison and control in clinical research program 06/11/2018 06/08/2020 Overview: DO NOT DELETE [facility] [employer] LEEANNA Study: Project # [id number], Artificial Teeth Inspector: Luis A Jameson, PhD. SUMMARY: Goal: Establish [...] contact study staff at ; after hours Artificial Teeth Inspector via the [facility] numerical control lathe operator . Please contact study team before resolving/deleting from patients problem list. Study phone number: [phone]. Diagnosis changed due to Research Module. Go to Snapshot for study details. Encounter for examination fo r normal comparison and control in clinical research program 06/11/2018 07/07/2022 Overview: DO NOT DELETE - Jorge [facility] DETECT Study: Project # [id number], Artificial Teeth Inspector: Fermin Brar, MS, MPH. SUMMARY: Goal: Establish [...] contact study staff at ; after hours Artificial Teeth Inspector via the [facility] numerical control lathe operator . - Please contact study team before resolving/deleting from patients problem list. Study phone number: [phone]. Diagnosis changed due to Research Module. Go to Snapshot for study details. Other chest pain 07/26/2010 07/31/2017 Abnormal electrocardiogram 07/26/201007/31 ADVANCE DIRECTIVE INFORMATION 06/17/2005 Overview: Yes, Patient instructed to provide copy of advance directive for provider to review and to be scanned into Electronic Medical Record Palpitations 12/22/2011 NONSPECIF SKIN ERUPT NEC 012 Other specified disorder of the esophagus 04/20/2020 Overview: esophageal dysfunction Dysphagia 01/06/2018 Overview: ICD-10 update of inactive term Diarrhea 11/27/2015 documented as of this encounter (statuses as of 08/16/2023) Immunizations Name Administration Dates Next Due COVID-19 mRNA, LNP-s, No Pre serve, 2-Dose Series (Xpreso) 08/18/2021,01/13/2021,12/18/2020 COVID-19, LNP-s, No Preserve , Manoj-sucrose, Ages 12+ (Pfizer) 03/10/2022 Covid-19, Mrna, Lnp-s, Pf, B ivalent, 30 Mcg, IM, 12 yrs and above (Pfizer) 08/30/2022 HEP A - Hepatitis A (Adult > 18 yrs) 12/12/2018, 09/01/2014,10/14/2013 Pneumococcal Conjugate Vacc, 13 Valent (Prevnar) 07/12/2016 Pneumococcal Polysaccharide PPV23 (Pneumovax) 08/27/2013 SEASONAL INFLUENZA, PF, 6 M & Above, IM , (FLULAVAL or FLUZONE) 07/31/2018,07/31/2017 Season Influenza, Quad, PF, Adjuvanted, 65+ Yrs, IM (FLUAD) 07/14/2020 Seasonal Influenza, Quadriva lent Hd (Fluzone Hd) [...] alcohol) Rare-glass of wine twice a month Alcohol Habits Answer Date Recorded How often do you have a drink containing alcohol ? Monthly or less 04/15/2021 How many drinks containing a lcohol do you have on a typical day when you are drinking? 1 or 2 04/15/2021 How often do you have six or more drinks on one occasion? Not asked 04/15/2021 Food Insecurity Answer Date Recorded Within the past 12 months, y ou worried that your food would run out before you got money to buy more. Never true 04/07/2023 Within the past 12 months, t he food you bought just didn't last and you didn't have money to get more. Never true 04/07/2023 Sex Assigned at Date Recorded Female 04/09/2019 11:47 AM EDT Job Start Date Occupation Industry Not on file Not on file Not on file documented as of this encounter Last Filed Vital Signs Vital Sign Reading Time Taken Comments Blood Pressure - - Pulse - - Temperature 36.6 C (97.9 F) 08/16/2023 10:39 AM E DT Respiratory Rate - - Oxygen Saturation - - Inhaled Oxygen Concentration - - Weight - - Height - - Body Mass Index - - documented in this encounter Progress Notes * Suzanne Foster LPN - 08/16/2023 10:46 AM EDT Mia Quintana presents today for administration of Prolia. She understands the benefits and risks of this treatment. An educational pamphlet was given to the patient. Prolia 60 mg was administered subcutaneously. The patient tolerated the procedure without problems. She will return in 6 months for the next injection and evaluation. Suzanne Foster LPN documented in this encounter Plan of Treatment Upcoming Encounters Date Type Specialty Care Team Description 10/20/2023 Imaging Radiology 12/04/2023 Imaging Radiology 01/01/2024 Office Visit Internal Medicine Dimas Lopez MD [address] [facility] [place] [address] 02/20/2024 Office Visit Rheumatology Courtney Juarez CRNP [email or web address] [place], [place] [address] 04/25/2024 Nurse Only Ancillary Im, Nurse Annual Wellness [facility] [address] [place] [facility] [place] [address] 07/18/2024 Imaging Radiology Scheduled Procedures Name Priority Associated Diagnoses Date/Ti me COLONOSCOPY FLEXIBLE PROXIMAL DIAGNOSTIC Recall History of colon polyps Health Maintenance Due Date Last Done Comments COVID-19 Vaccine (2022- season) 2023 08/30/2022, 03/10/2022, 08/18/2021, Additional history exists DXA Scan 12/01/2023 12/01/2021, 12/2012, 10/07/2013 Depression Screening 04/19/2024 04/19/2023 COLONOSCOPY-EVERY 5 YRS AGES 18-100 06/25/2026 06/25/2021, 06/25/2021, 02/01/2018, Additional history exists DTaP,Tdap,and Td Vaccines (3 - Td or Tdap) 05/12/2031 05/12/2021, 12/27/2010, 06/17/2005 Pneumococcal Vaccine: 65+ Years Completed 07/12/2016, 08/27/2013 Zoster Vaccines Completed 10/06/2019, 06/07, 11/25/2013 COLONOSCOPY-EVERY 3 YRS AGES 18-100 Discontinued 06/25/2021, 06/25/2021, 02/01/2018, Additional history exists VITAMIN D LEVEL ONCE IN A LIFETIME-USE SMARTSET# [id number] Completed 01/09/2023, 02/01/2022 Influenza Vaccine (FLU shot) [...] as of this encounter Visit Diagnoses Diagnosis Senile osteoporosis- Primary documented in this encounter Administered Medications Inactive Administered Medications - up to 3 most recent administrations Medication Order MAR Action Action Date Dose Rate Site Denosumab (Prolia) subcut inj 60 mg 60 mg, Subcutaneous, ONCE, On Mon08/16/23 at 1115, For 1 dose Given 08/16/2023 10:48 AM EDT 60 mg Arm Left Upper documented in this encounter Advance Directives Documents on File Type Date Recorded Patient Calender Roll Press Operator Expl anation Advance Directives and Livin g Will 01/19/2018 LIVING WILL Power of Warehouse Supervisor 3Rd Shift 01/19/2018 POWER OF A TTORNEY Care Teams Clinical Writer Relationship Specialty Start Date End Date Dimas Lopez MD [address] [place] [address], [place] [address] PCP - General Internal Medicine 06/01/22 documented as of this encounter
--- OUTSIDE RECORDS SUMMARY | 2024-01-26 13:36 | External Medical Summary | Summary of Care ---
Author Name Unknown Organization [facility] Address [address] [place] [address] Phone [phone] Care Team Providers Care Ditch Tender Name Role Phone Dimas Hameed MD Primary Care Provider + Reason for Visit * Reason Comments eRx-Medication Refill Encounter Details Date Type Department Care Team (Late st Contact Info) Description 09/16/2023 Refill General Internal Medicine [facility] [address] [place] [address] Mamie Vasquez MD [address] [place] [address] Gastroesophageal reflux disease without esophagitis; Oropharyngeal dysphagia Allergies Active Allergy Reactions Criticality Noted Date Comments Codeine Other (Please comment) 02/01/2018 Cough syrup with codeine "felt like I was drowning" "couldn't breathe" Dust Other (Please comment) 07/23/2015 sneezing documented as of this encounter (statuses as of 09/18/2023) Medications Medication Sig Dispensed Refills Start Date End Date Status MULTIVITAMINS PO TABS once daily 0 0 07/27/2007 Active CALCIUM 600-D 600-400 MG-UNIT PO TABS one tablet by mouth daily 0 07/16/2012 Active Tylenol 325 MG Oral Capsule (Acetaminophen) Take by mouth. 0 Active Vitamin D (Cholecalciferol) 25 MCG (1000 UT) Oral Capsule Take by mouth . 0 Active Prolia 60 MG/ML Subcutaneous Solution Prefilled Syringe (Denosumab) Inject 60 mg under the skin once. 0 Active Pantoprazole Sodium 40 MG Oral Tablet Delayed Release (Protonix)Indicati ons:Gastroesophage al reflux disease without esophagitis Take 1 Tablet by mouth in the morning. 30 minutes before the first meal of the day. Do not crush, split or chew the tablet. 90 Tablet 3 04/10/2023 Active Rosuvastatin Calcium 5 MG Oral Tablet (Crestor) TAKE 1 TABLET BY MOUTH AT BEDTIME 90 Tablet 3 04/12/2023 Active Famotidine 20 MG Oral Tablet (Pepcid)Indication s:Gastroesophageal reflux disease without esophagitis,Oropha ryngeal dysphagia TAKE 1 TABLET BY MOUTH BEFORE BEDTIME 90 Tablet 1 09/18/2023 Active Famotidine 20 MG Oral Tablet (Pepcid)Indication s:Gastroesophageal reflux disease without esophagitis,Oropha ryngeal dysphagia TAKE 1 TABLET BY MOUTH BEFORE BEDTIME 90 Tablet 1 03/22/2023 09/18/2023 Discontinued documented as of this encounter (statuses as of 09/18/2023) Active Problems Problem Noted Date Diagnosed Date Mixed hyperlipidemia 05/11/2022 Senile osteoporosis 12/03/2021 Memory changes 09/03/2019 Chronic rhinitis 01/06/2018 GERD (gastroesophageal reflux disease) 2 Diverticulosis, sigmoid 07/04/2005 Overview: noted on 11/04/[address] barker GENERAL OSTEOARTHROSIS 11/21/2001 documented as of this encounter (statuses as of 09/18/2023) Resolved Problems Problem Noted Date Diagnosed Date Resolved Date Encounter for examination fo r normal comparison and control in clinical research program 06/11/2018 06/08/2020 Overview: DO NOT DELETE [facility] DETECT Study: Project # [id number], Calibration Tester: Luis A Jameson, PhD. SUMMARY: Goal: Establish [...] contact study staff at ; after hours Calibration Tester via the [facility] door machine operator . Please contact study team before resolving/deleting from patients problem list. Study phone number: [phone]. Diagnosis changed due to Research Module. Go to Snapshot for study details. Encounter for examination fo r normal comparison and control in clinical research program 06/11/2018 07/07/2022 Overview: DO NOT DELETE - [facility] Study: Project # [id number], Calibration Tester: Fermin Brar, MS, MPH. SUMMARY: Goal: Establish [...] contact study staff at ; after hours Calibration Tester via the [facility] door machine operator . - Please contact study team before resolving/deleting from patients problem list. Study phone number: [phone]. Diagnosis changed due to Research Module. Go [...] as of this encounter (statuses as of 09/18/2023) Immunizations Name Administration Dates Next Due COVID-19 mRNA, LNP-s, No Pre serve, 2-Dose Series ([employer]) 08/18/2021,01/13/2021,12/18/2020 COVID-19, LNP-s, No Preserve , Manoj-sucrose, Ages 12+ (Pfizer) 03/10/2022 Covid-19, Mrna, Lnp-s, Pf, B ivalent, 30 Mcg, IM, 12 yrs and above ([employer]) 08/30/2022 HEP A - Hepatitis A (Adult [...] encounter Miscellaneous Notes * Telephone Encounter - Syed Espana [facility] - 09/18/2023 8:51 AM ESTSigned Prescriptions: Disp Refills Famotidine 20 MG Oral Tablet (Pepcid) 90 Tab*1 Sig: TAKE 1 TABLET BY MOUTH BEFORE BEDTIMEAuthorizing Provider: DIMAS HAMEED User: SYED ESPANA- documented in this encounter Plan of Treatment Upcoming Encounters Date Type Department Care Team (Late st Contact Info) Description 10/20/2023 10:45 AM EST Imaging Radiology [address] [facility] [place] [address] 12/04/2023 11:00 AM EST Imaging Radiology, [address] [place] [address] 01/01/2024 2:20 PM EST Office Visit General Internal Medicine [facility] [address] [facility] [place] [address] Dimas Hameed MD [address] [facility] [place] [address] 02/20/2024 2:30 PM EDT Office Visit Rheumatology [address] [place] [address] Courtney Juarez CRNP [address] [place] [address] [place] [address] 04/25/2024 10:00 AM EDT Nurse Only Ancillary [facility] [address] [place] [address] Im, Nurse Annual Wellness [facility] [address] [place] [address] 07/18/2024 10:00 AM EDT Imaging Radiology [address] [facility] [place] [address] Scheduled Procedures Name Priority Associated Diagnoses Date/Ti me COLONOSCOPY FLEXIBLE PROXIMAL DIAGNOSTIC Recall History of colon polyps Health Maintenance Due Date Last Done Comments COVID-19 Vaccine (2022- season) 2023 08/30/2022, 03/10/2022, 08/18/2021, Additional history exists DXA Scan 12/01/2023 12/01/2021, 1212/2012, 10/07/2013 Depression Screening 04/19/2024 04/19/2023 COLONOSCOPY-EVERY 5 YRS AGES 18-100 06/25/2026 06/25/2021, 06/25/2021, 02/01/2018, Additional history exists DTaP,Tdap,and Td Vaccines (3 - Td or Tdap) 05/12/2031 05/12/2021, 12/27/2010, 06/17/2005 Pneumococcal Vaccine: 65+ Years Completed 07/12/2016, 08/27/2013 Zoster Vaccines Completed 10/06/2019, 06/07, 11/25/2013 COLONOSCOPY-EVERY 3 YRS AGES 18-100 Discontinued 06/25/2021, 06/25/2021, 02/01/2018, Additional history exists VITAMIN D LEVEL ONCE IN A LIFETIME-USE SMARTSET# [id number] Completed 01/09/2023, 02/01/2022 Influenza Vaccine (FLU shot) [...] as of this encounter Visit Diagnoses Diagnosis Gastroesophageal reflux disease without esophagitis Esophageal reflux Oropharyngeal dysphagia Dysphagia, oropharyngeal phase documented in this encounter Advance Directives Documents on File Type Date Recorded Patient Hand Sole Sewer Expl anation Advance Directives and Livin g Will 01/19/2018 LIVING WILL Power of Sky Diver 01/19/2018 POWER OF A TTORNEY Care Teams Ditch Tender Relationship Specialty Start Date End Date Dimas Hameed MD [address] [facility] [place] [address] PCP - General Internal Medicine 06/01/22 documented as of this encounter
--- OUTSIDE RECORDS SUMMARY | 2024-01-26 13:36 | External Medical Summary | Summary of Care ---
Author Name Unknown Organization [facility] Address [address] [place] [address] Phone [phone] Care Team Providers Care Master Welder Name Role Phone Dimas Lopez MD Primary Care Provider + Reason for Visit * Reason Onset Date Comments Order Request 11/08/2023 Encounter Details Date Type Department Care Team (Late st Contact Info) Description 11/08/2023 Telephone Radiology [facility] [address] [facility] [place] [address] [facility] [place] [address] Riaz Hahn MD [address] [place] [address] Order Request Allergies Active Allergy Reactions Criticality Noted Date Comments Codeine Other (Please comment) 02/01/2018 Cough syrup with codeine "felt like I was drowning" "couldn't breathe" Dust Other (Please comment) 07/23/2015 sneezing documented as of this encounter (statuses as of 11/08/2023) Medications Medication Sig Dispensed Refills Start Date [...] as of this encounter (statuses as of 11/08/2023) Active Problems Problem Noted Date Diagnosed Date Mixed hyperlipidemia 05/11/2022 Senile osteoporosis 12/03/2021 Memory changes 09/03/2019 Chronic rhinitis 01/06/2018 GERD (gastroesophageal reflux disease) 2 Diverticulosis, sigmoid 07/04/2005 Overview: noted on 11/04/[address] barker GENERAL OSTEOARTHROSIS 11/21/2001 documented as of this encounter (statuses as of 11/08/2023) Resolved Problems Problem Noted Date Diagnosed Date Resolved Date Encounter for examination fo r normal comparison and control in clinical research program 06/11/2018 06/08/2020 Overview: DO NOT DELETE [facility] DETECT Study: Project # [id number], Irrigation Pump Installer: Luis A Jameson, PhD. SUMMARY: Goal: Establish [...] contact study staff at ; after hours Irrigation Pump Installer via the [facility] snuff packing machine operator . Please contact study team before resolving/deleting from patients problem list. Study phone number: [phone]. Diagnosis changed due to Research Module. Go to Snapshot for study details. Encounter for examination fo r normal comparison and control in clinical research program 06/11/2018 07/07/2022 Overview: DO NOT DELETE - [facility] Study: Project # [id number], Irrigation Pump Installer: Fermin Brar, MS, MPH. SUMMARY: Goal: Establish [...] contact study staff at ; after hours Irrigation Pump Installer via the [facility] snuff packing machine operator . - Please contact study team before resolving/deleting from patients problem list. Study phone number: [phone]. Diagnosis changed due to Research Module. Go [...] as of this encounter (statuses as of 11/08/2023) Immunizations Name Administration Dates Next Due COVID-19 mRNA, LNP-s, No Pre serve, 2-Dose Series ([employer]) 08/18/2021,01/13/2021,12/18/2020 COVID-19, LNP-s, No Preserve , Manoj-sucrose, [...] encounter Miscellaneous Notes * Telephone Encounter - Riza Hahn MD - 11/08/2023 12:20 PM EST ordered * Telephone Encounter - Thais Savage RT - 11/08/2023 9:05 AM EST Raphael, Can I get an updated Dexa order for Enedina? Joana ordered her previous. Thanks! Thais documented in this encounter Plan of Treatment Upcoming Encounters Date Type Department Care Team (Late st Contact Info) Description 12/04/2023 11:00 AM EST Imaging Radiology, [address], [place] [address] 01/01/2024 2:20 PM EST Office Visit General Internal Medicine [facility] [address] [place] [address] Dimas Lopez MD [address] [facility] [place] [address] 02/20/2024 2:30 PM EDT Office Visit Rheumatology [facility] [address] [place] [address] Courtney Juarez CRNP [address] [place] [address] 04/25/2024 10:00 AM EDT Nurse Only Ancillary [facility] [place] [address] [place] [address] Im, Nurse Annual Wellness [facility] 200 [facility] [place] [address] 07/18/2024 10:00 AM EDT Imaging Radiology [address] [facility] [place] [address] Scheduled Orders Name Type Priority Associated Diagnoses Orde r Schedule DEXA SCAN/BONE MINERAL AXIAL Medical Imaging Routine Senile osteoporosis Ordered: 11/08/2023 Scheduled Procedures Name Priority Associated Diagnoses Date/Ti [...] D LEVEL ONCE IN A LIFETIME-USE SMARTSET# [id number] Completed 01/09/2023, 02/01/2022 Influenza Vaccine (FLU shot) [...] Senile osteoporosis- Primary documented in this encounter Advance Directives Documents on File Type Date Recorded Patient Road Machine Operator Expl anation Advance Directives and Livin g Will 01/19/2018 LIVING WILL Power of Dial Buffer 01/19/2018 POWER OF A TTORNEY Care Teams Master Welder Relationship Specialty Start Date End Date Dimas Lopez MD [address] [place], [place] [address] PCP - General Internal Medicine 06/01/22 documented as of this encounter
[2024-01-26] MEDS: AMIODARONE / D5W 360 MG/200 ML BAG IV SCH (16:02)
[2024-01-27] MEDS: METOPROLOL TARTRATE 25 MG TAB PO STA (02:40)
[2024-01-27 06:30] LABS: Hematocrit (blood only) 40.4 % (37.0-47.0); Hemoglobin 13.4 g/dl (12.0-16.0); Mean Corpuscular Hemoglobin 29.3 pg (25.0-34.0); Mean Corpuscular Hgb Conc 33.2 g/dL (32.0-36.0); Mean Corpuscular Volume 88.4 fL (80.0-100.0); Mean Platelet Volume 10.3 fL (9.4-12.4); Platelet Count 249 K/uL (130-400); RDW Standard Deviation 38.5 fL (36.4-46.3); Red Blood Count 4.57 M/uL (4.20-5.40); White Blood Count 9.72 K/ul (4.8-10.8)
[2024-01-27 06:47] LABS: BUN Creatinine Ratio 16.2 (10-20); Calcium 8.8 mg/dl (8.6-10.3); Creatinine Clr Calc Pharmacy 66.9 ml/min; Est GFR (African American) 99.2 ml/min; Est GFR (Non-African American) 85.6 ml/min; Potassium 3.7 mmol/L (3.5-5.1)
[2024-01-27] MEDS: PANTOprazole 40 MG TAB PO SCH (07:43)
[2024-01-27 07:53] LABS: ANTI-Xa, UFH(UnfractionatedHep 0.87 IU/ml (0.3-0.7)
[2024-01-27] MEDS: amLODIPine BESYLATE 5 MG TAB PO ONE (07:58)
--- NOTE | 2024-01-27 08:45 | Electrocardiogram Report ---
Test Reason : Blood Pressure : / mmHG Vent. Rate : 071 BPM Atrial Rate : 071 BPM P-R Int : 178 ms QRS Dur : 074 ms QT Int : 372 ms P-R-T Axes : 066 069 070 degrees QTc Int : 404 ms Normal sinus rhythm Left atrial enlargement Poor R wave progression, consider anterior MD vs. lead placement vs. LVH Abnormal ECG When compared with ECG of 26-JAN-2024 05:45, Sinus rhythm has replaced Atrial fibrillation HR has decreased by 33 bpm Confirmed by Zafar Johnson ([id number]) on 01/27/2024 8:44:32 AM Referred By: REFERRED SELF Confirmed By:Zafar Johnson
--- NOTE | 2024-01-27 08:46 | Electrocardiogram Report ---
Test Reason : Blood Pressure : / mmHG Vent. Rate : 067 BPM Atrial Rate : 067 BPM P-R Int : 182 ms QRS Dur : 076 ms QT Int : 414 ms P-R-T Axes : 072 079 066 degrees QTc Int : 437 ms Normal sinus rhythm Normal ECG When compared with ECG of 26-JAN-2024 19:30, PRWP no longer present Confirmed by Zafar Johnson ([id number]) on 01/27/2024 8:46:31 AM Referred By: REFERRED SELF Confirmed By:Zafar Johnson
--- NOTE | 2024-01-27 09:02 | OB/GYN Consultation ---
Date of Consultation January 27, 2024 Assessment & Plan (1) History of hysterectomy for benign disease: (2) History of bilateral oophorectomy: (3) Mass of perirectal soft tissue: Patient is a 73-year-old -0-1-1 postmenopausal female with history of total hysterectomy and bilateral salpingo-oophorectomy in 2002, asymptomatic, now incidental finding of perirectal mass, Pelvic exam normal with nonpalpable adnexa no cervix no uterus, physiologic vulvovaginal atrophy which is expected after menopause, Palpable 8 x 8 cm right perirectal/gluteal mass I discussed the case with Dr. Hurley and recommended pelvic exam and MRI and general surgery consultation, I will follow-up with the results, All questions were answered, Thank you for the consult. (4) Menopausal and postmenopausal disorder: History of Present Illness Reason for Consultation: Perirectal mass Attending Physician: Alexandr Hurley MD History of Present Illness Patient is a 73-year-old -0-1-1 postmenopausal female who is status post total abdominal hysterectomy with bilateral salpingo-oophorectomy in 2002. Her pathology was benign. She has not seen FOOD SCIENTIST for over 10 years due to not having cervix. She was admitted 2 days ago for A-fib and has been on amiodarone drip. She is not aware of any pelvic/perirectal mass. She has no symptoms. She jose es pelvic pressure, vaginal bleeding, pain on sitting nor bowel movements. She has not been sexually active for over 10 years. She denies leakage of urination nor stool incontinence. She has a history of constipation for which she uses fiber and goes regularly. Allergies Allergy/AdvReac Type Severity Reaction Status Date / Time codeine Allergy Unknown CAN'T Verified 01/25/24 17:59 REMEMBER Home Medications Medication Instructions Recorded Confirmed Type Prolia 60 mg subcut Q6M 01/25/24 01/25/24 History calcium carbonate 600 mg-vitamin 1 tab PO DAILY 01/25/24 01/25/24 History D3 10 mcg (400 unit) tablet (Calcium 600 + D(3)) cholecalciferol (vitamin D3) 25 25 mcg PO DAILY 01/25/24 01/25/24 History mcg (1,000 unit) chewable tablet (Vitamin D3) famotidine 20 mg tablet 20 mg PO HS 01/25/24 01/25/24 History metoprolol tartrate 25 mg tablet 25 mg PO BID 01/25/24 01/25/24 History multivitamin 1 tab PO DAILY 01/25/24 01/25/24 History pantoprazole 40 mg tablet,delayed 40 mg PO DAILY 01/25/24 01/25/24 History release rosuvastatin 5 mg tablet 5 mg PO DAILY 01/25/24 01/25/24 History Patient History Medical History GERD (gastroesophageal reflux disease) HLD (hyperlipidemia) Surgical History H/O: hysterectomy Family History Other Cancer Diabetes Social History Smoking Status: Never smoker Hx Alcohol Use: Yes Alcohol type: wine Hx Substance Use: No Preferred Language: Burkinan Communication Ability: Effective Chief Deputy Clerk/Bailiff Required: No Beliefs That Will Affect Care: None Current Living Situation: Spouse Other Information That Helps Us Care for You: No Feels Safe at Home: Yes Safety Concerns: Feels Safe At This Time Assistive Devices: None Assistive Devices Comment: retainers, glasses Review of Systems Constitutional: as per Subjective / HPI Physical Exam Constitutional: WD/WN, vitals as above well developed, well nourished and comfortable Very pleasant happy postmenopausal female Gastrointestinal (Abdomen): normal bowel sounds, soft, nontender, no hepatosplenomegaly Genitourinary: normal external appearance Speculum/Bimanual Exam: normal appearance of the vagina, + atrophic vaginal mucosa, + cervix absent and + uterus absent Physiological vulvar and vaginal atrophy No prolapse of pelvic organs from introitus Digital exam vagina and rectum revealed about 8 x 8 cm soft well-circumscribed mass in the right perirectal gluteal area. No erythema of the skin, nontender, no drainage. It is not connected to the upper vagina nor the pelvis. It feels like, right of rectal anal area within gluteal muscle. Results & Data Vital Signs (Past 12 Hours) Vital Signs Temp Pulse Pulse Resp BP Pulse Ox O2 Del Method 01/27/24 07:48 66 01/27/24 07:20 36.3 C L 65 18 168/92 H 96 Room Air 01/27/24 04:25 63 157/77 H 96 Room Air 01/27/24 02:36 36.8 C 67 18 181/89 H 97 Room Air 01/26/24 22:51 36.5 C 66 18 133/74 98 Room Air 01/26/24 21:55 63
[2024-01-27] MEDS: GADOBUTROL 7.5ML VIAL IV ONE (11:19)
--- NOTE | 2024-01-27 11:40 | Magnetic Resonance Report ---
MRI OF THE PELVIS WITH AND WITHOUT CONTRAST CLINICAL HISTORY: PERIRECTAL MASS COMPARISON STUDY: CTA of the abdomen and pelvis January 25, 2024. TECHNIQUE: Utilizing a 1.5 Martha magnet and dedicated coil, multiplanar, multiecho imaging of the pel vis was performed pre and postcontrast administration. Intravenous injection of 6 cc of Gadavist was uneventful. FINDINGS: A small amount of fluid within the pelvis is present. A small 6 mm T1 hypointense enhancing lesion within the left sacral ala on axial image 7 of 35 is noted. There are no additional osseous l esions. There is no pelvic lymphadenopathy. Note is made of an enhancing lobulated right anorectal ma ss which measures 7.8 x 7 x 6.7 cm. This corresponds to the lesion on CT of January 25, 2024. This disp laces the rectum leftward and the vagina anteriorly and extends through the right levator ani into th e right ischiorectal fossa. The majority of this lesion enhances. Multiple small nonenhancing compone nts are present. The mass is hyperintense compared to skeletal muscle. No additional masses within th e pelvis are present. The uterus and ovaries are surgically absent. Sigmoid diverticulosis is noted w ithout evidence for acute diverticulitis. The bladder is unremarkable. IMPRESSION: 1. 7.8 x 7 x 6.7 cm lobulated enhancing right anorectal mass which extends through the levator ani in to the right ischiorectal fossa. The mass displaces the rectum leftward and vagina anteriorly. This i s consistent with a neoplasm however the MRI appearance is nonspecific. A differential consideration includes an exophytic anorectal GI stromal tumor arising from the rectum. Although within the differe ntial, the appearance is not typical for adenocarcinoma. Additional considerations include lymphoma a nd carcinoid. 2. No pelvic lymphadenopathy. Small amount of fluid within the pelvis, a nonspecific finding. 3. Small 6 mm left sacral ala lesion. This is indeterminate but low suspicion. This can be assessed o n follow-up exams to ensure stability. 4. Status post hysterectomy and bilateral oophorectomy. ACT 112: Negative or not required by law. Electronically signed by: Antonio Menendez M.D. 01/27/2024 11:38 AM
--- NOTE | 2024-01-27 12:27 | Ultrasound Report ---
PELVIC ULTRASOUND CLINICAL HISTORY: perirectal mass, h/o hysterectomy and BSO COMPARISON STUDY: CTA of the abdomen and pelvis. MRI of the pelvis performed earlier today. TECHNIQUE: Transabdominal and transvaginal sonography of the pelvis was performed. FINDINGS: The uterus and ovaries are surgically absent. No free fluid is noted. There is a lobulated 8 x 6.8 x 7.7 cm right anorectal mass which contains color flow. This corresponds to the lesion on pr ior CT and MRI. This lesion displaces the vagina anteriorly. No additional masses are identified with in the pelvis. No fluid collection is identified. IMPRESSION: 1. 8 x 6.8 x 7.7 cm right anorectal mass. This is consistent with a neoplasm but is pathologically in determinate and better depicted on the pelvis MRI. Please see that report for further description. 2. Status post hysterectomy and bilateral oophorectomy. ACT 112: Negative or not required by law. Electronically signed by: Antonio Menendez M.D. 01/27/2024 12:25 PM
--- NOTE | 2024-01-27 14:39 | Surgery Consultation ---
Date of Consultation January 27, 2024 Assessment & Plan (1) Mass of perirectal soft tissue: 73-year-old woman with incidentally found anorectal mass. I had a discussion with her and her family concerning this. She will most likely need gastroenterology to proceed with sigmoidoscopy or rigid proctoscopy for cammie racterization of the mass and possible transrectal biopsy. This can be done as an outpatient with a senior test analyst at [facility]. Depending on the findings, she will most likely need to be seen by colorectal surgery for further treatment options pending pathology. History of Present Illness Reason for Consultation: Perirectal/perianal mass Requesting Physician: Alexandr Hurley MD Attending Physician: Alexandr Hurley MD History of Present Illness 73-year-old woman has been admitted to the hospital for atrial fibrillation. During the course of her workup, she was noted to have a large mass seen on CT scan in the perirectal/ischial rectal space abutting the rectum and anteriorly displacing the uterus and vagina. She denies any symptoms related to this. She denies any abdominal pain, changes in bowel movements. Allergies Allergy/AdvReac Type Severity Reaction Status Date / Time codeine Allergy Unknown CAN'T Verified 01/25/24 17:59 REMEMBER Home Medications Medication Instructions Recorded Confirmed Type Prolia 60 mg subcut Q6M 01/25/24 01/25/24 History calcium carbonate 600 mg-vitamin 1 tab PO DAILY 01/25/24 01/25/24 History D3 10 mcg (400 unit) tablet (Calcium 600 + D(3)) cholecalciferol (vitamin D3) 25 25 mcg PO DAILY 01/25/24 01/25/24 History mcg (1,000 unit) chewable tablet (Vitamin D3) famotidine 20 mg tablet 20 mg PO HS 01/25/24 01/25/24 History metoprolol tartrate 25 mg tablet 25 mg PO BID 01/25/24 01/25/24 History multivitamin 1 tab PO DAILY 01/25/24 01/25/24 History pantoprazole 40 mg tablet,delayed 40 mg PO DAILY 01/25/24 01/25/24 History release rosuvastatin 5 mg tablet 5 mg PO DAILY 01/25/24 01/25/24 History Patient History Medical History GERD (gastroesophageal reflux disease) HLD (hyperlipidemia) Surgical History H/O: hysterectomy Family History Other Cancer Diabetes Social History Smoking Status: Never smoker Hx Alcohol Use: Yes Alcohol type: wine Hx Substance Use: No Preferred Language: Malay Communication Ability: Effective Credit Verification Clerk Required: No Beliefs That Will Affect Care: None Current Living Situation: Spouse Other Information That Helps Us Care for You: No Feels Safe at Home: Yes Safety Concerns: Feels Safe At This Time Assistive Devices: None Assistive Devices Comment: retainers, glasses Review of Systems Review of Systems: All systems reviewed & are unremarkable except as noted in HPI & below Physical Exam Constitutional: WD/WN, vitals as above Eyes: PERRL, conjunctivae normal, anicteric sclerae ENMT: external ear and nose normal, oropharynx normal Neck: trachea midline, no thyromegaly Respiratory: normal respiratory effort, lungs clear to auscultation Cardiovascular: Rate/Rhythm: regular rate and regular rhythm Skin: no rashes, warm and dry Psychiatric: A+Ox3, euthymic affect Results & Data Vital Signs (Past 12 Hours) Vital Signs Temp Pulse Pulse Resp BP Pulse Ox O2 Del Method 01/27/24 14:27 37.2 C 73 18 167/90 H 96 Room Air 01/27/24 14:27 73 01/27/24 12:06 36.9 C 70 18 135/79 98 Room Air 01/27/24 07:48 66 01/27/24 07:20 36.3 C L 65 18 168/92 H 96 Room Air 01/27/24 04:25 63 157/77 H 96 Room Air Laboratory Results 01/27/24 Range/Units 06:11 WBC 9.72 (4.8-10.8) K/ul RBC 4.57 (4.20-5.40) M/uL Hgb 13.4 (12.0-16.0) g/dl Hct 40.4 (37.0-47.0) % MCV 88.4 (80.0-100.0) fL MCH 29.3 (25.0-34.0) pg MCHC 33.2 (32.0-36.0) g/dL RDW Std Deviation 38.5 (36.4-46.3) fL RDW Coeff of Maggie 12.0 (11.5-14.5) % Plt Count 249 (130-400) K/uL MPV 10.3 (9.4-12.4) fL Heparin Anti-Xa, Unfract 0.87 H* (0.3-0.7) IU/ml Sodium 139 (136-145) mmol/L Potassium 3.7 (3.5-5.1) mmol/L Chloride 107 (98-107) mmol/L Carbon Dioxide 26 (21-32) mmol/L Anion Gap 6 (3-11) BUN 11 (6-23) mg/dl Creatinine 0.68 (0.6-1.2) mg/dl Est Cr Clr Drug Dosing 66.9 ml/min Est GFR ( Amer) 99.2 ml/min Est GFR (Non-Af Amer) 85.6 ml/min BUN/Creatinine Ratio 16.2 (10-20) Glucose 108 H (70-99(Fasting)) mg/dl Calcium 8.8 (8.6-10.3) mg/dl Diagnostic Findings CT ANGIOGRAM OF THE ABDOMEN AND PELVIS CLINICAL HISTORY: Generalized weakness. COMPARISON STUDY: No priors. TECHNIQUE: Following the IV administration of 114 cc of Optiray 320, CT angiogram of the abdomen and pelvis was performed from the lung bases the proximal femora. Images are reviewed in the axial, sagittal, and coronal planes. 3-D MIPS images are created and assessed. IV contrast was administered without complication. A dose lowering technique was utilized adhering to the principles of ALARA. The examination is degraded by streak artifact from the arms which could not be elevated above the abdomen. FINDINGS: Lower chest: The heart is normal in size and without pericardial effusion. There is bibasilar scarring/atelectasis. The lung bases are otherwise clear. Liver: The contrast-enhanced liver is normal in size, contour, and attenuation. There is no intrahepatic biliary ductal dilatation. Gallbladder: Unremarkable. Spleen: Normal in size and attenuation noting heterogeneous arterial phase enhancement. Pancreas: Unremarkable. Adrenal glands: Unremarkable. Kidneys: The contrast enhanced kidneys are normal in size and without hydronephrosis. The kidneys enhance symmetrically. A retroaortic left renal vein is incidentally noted. Abdominal aorta and iliac arteries: The abdominal aorta is normal in course and caliber noting mild to moderate atherosclerotic calcification. The abdominal aorta is widely patent. No dissection is seen. The iliac arteries are widely patent bilaterally. Major branches of the abdominal aorta: The celiac trunk, superior mesenteric, and inferior mesenteric arteries are widely patent. Hepatic arterial anatomy is conventional. The splenic artery is patent. Single bilateral renal arteries are widely patent. Bowel: There is mild to moderate colonic diverticulosis without CT evidence of acute diverticulitis. No bowel obstruction is seen.. The appendix is well- visualized and normal. Peritoneum: There is no intraperitoneal free air or abdominal ascites. Lymphadenopathy: None. Pelvic viscera: The bladder is normal as visualized. The uterus is surgically absent. There is an approximately 8 x 8.5 x 6.5 cm soft tissue mass centered in the right perineum seen on axial image #384. This causes anterior displacement of the vagina, and also causes mass effect on the adjacent rectum/anus. Skeletal structures: The skeletal structures are osteopenic. Mild lumbosacral spondylosis is observed. No destructive bony lesions are seen. IMPRESSION: 1. Unremarkable CT angiogram of the abdominal aorta and its major branches. 2. No acute infectious or inflammatory findings are identified in the abdomen or pelvis. 3. There is approximately 8.5 cm heterogeneous mass centered in the right perineal soft tissues as detailed above. This causes mass effect on the adjacent vagina, and significantly effaces/displaces the adjacent rectum/anus. Neoplasm is the diagnosis of exclusion. Oncological follow-up will be required. 4. Additional findings as above. ACT 112: Positive. There are findings on this exam that require communication between the performing entity and the patient following Patient Test Result Information Act ([place] Act 112) guidelines. Electronically signed by: Zana Choi M.D. 01/25/2024 4:05 PM MRI OF THE PELVIS WITH AND WITHOUT CONTRAST CLINICAL HISTORY: PERIRECTAL MASS COMPARISON STUDY: CTA of the abdomen and pelvis January 25, 2024. TECHNIQUE: Utilizing a 1.5 Martha magnet and dedicated coil, multiplanar, multiecho imaging of the pelvis was performed pre and postcontrast administration. Intravenous injection of 6 cc of Gadavist was uneventful. FINDINGS: A small amount of fluid within the pelvis is present. A small 6 mm T1 hypointense enhancing lesion within the left sacral ala on axial image 7 of 35 is noted. There are no additional osseous lesions. There is no pelvic lymphadenopathy. Note is made of an enhancing lobulated right anorectal mass which measures 7.8 x 7 x 6.7 cm. This corresponds to the lesion on CT of January 25, 2024. This displaces the rectum leftward and the vagina anteriorly and extends through the right levator ani into the right ischiorectal fossa. The majority of this lesion enhances. Multiple small nonenhancing components are present. The mass is hyperintense compared to skeletal muscle. No additional masses within the pelvis are present. The uterus and ovaries are surgically absent. Sigmoid diverticulosis is noted without evidence for acute diverticulitis. The bladder is unremarkable. IMPRESSION: 1. 7.8 x 7 x 6.7 cm lobulated enhancing right anorectal mass which extends through the levator ani into the right ischiorectal fossa. The mass displaces the rectum leftward and vagina anteriorly. This is consistent with a neoplasm however the MRI appearance is nonspecific. A differential consideration includes an exophytic anorectal GI stromal tumor arising from the rectum. Although within the differential, the appearance is not typical for adenocarcinoma. Additional considerations include lymphoma and carcinoid. 2. No pelvic lymphadenopathy. Small amount of fluid within the pelvis, a nonspecific finding. 3. Small 6 mm left sacral ala lesion. This is indeterminate but low suspicion. This can be assessed on follow-up exams to ensure stability. 4. Status post hysterectomy and bilateral oophorectomy. ACT 112: Negative or not required by law. Electronically signed by: Antonio Menendez M.D. 01/27/2024 11:38 AM
--- NOTE | 2024-01-27 15:04 | Cardiology Progress Note ---
<Statement entered by Gladys Gramajo MD - 01/27/24 20:44> I have reviewed the advanced practitioner's documentation on the date of service referenced in note, and I agree with, and take responsibility for the plan of care. 73-year-old female with new onset atrial fibrillation converted to sinus rhythm overnight start amiodarone p.o. 200 mg twice daily for 2 weeks followed by 200 mg daily to maintain sinus rhythm continue metoprolol we will need to start on anticoagulation Eliquis 5 mg twice daily currently on heparin drip we will need EKG in 2 weeks follow-up on QT also incidentally diet noted anorectal mass which needs further evaluation I spent a total of [15] minutes coordinating, documenting, and providing care for this patient excluding time spent in the performance of separately billed services or time spent by another provider. Date of Service January 27, 2024 Assessment & Plan (1) Atrial fibrillation with RVR: (2) Elevated troponin: Plan 73 year old female with longstanding history of palpitations secondary to PSVT. Presented with new onset, highly symptomatic, atrial fibrillation with rapid ventricular response status post spontaneous conversion overnight as detailed below. Elevated troponin in the setting of demand. Low likelihood for ACS. Incidental anorectal mass noted with plans for outpatient follow-up Recommendations: 1. Discontinue IV amiodarone, transitioning to oral amiodarone at 200 mg twice a day 2. Continue metoprolol tartrate 25 mg twice a day 3. Initiate Eliquis anticoagulation, 5 mg twice a day 4. Outpatient cardiology follow-up in 2 weeks I spent a total of 60 minutes on the date of service in preparation, delivery, and documentation of the care provided to this patient excluding any time spent in the performance of separately billed services. This visit was a split-shared visit with the substantive portion of the medical decision making performed by the supervising electronic warfare technical/billing provider. Admission and Anticipated Discharge Date Admission Date: January 25, 2024 Subjective Patient seen and examined in conjunction with Dr. Gramajo. and daughter at bedside. Longstanding history of palpitations secondary to PSVT Admitted with highly symptomatic (hypotension, chest pain, confusion, "I thought I was going to .") palpitations, new onset atrial fibrillation with rapid ventricular response. Patient received beta-dahlia therapy and amiodarone with improvement, spontaneously converting back to sinus rhythm without conversion pause on January 26, 2024 at 17:51. Resting echocardiography revealed normal to mildly hyperdynamic LV systolic function, EF 65 to 70%. Mild concentric LVH observed. RV size and function were normal. Mild tricuspid regurgitation noted. Doppler findings not suggestive of pulmonary hypertension. Trivial loculated posterior pericardial fusion observed with no echocardiographic indications of cardiac tamponade. EKG this morning revealed normal sinus rhythm at 67 bpm. QTc 437 ms TSH and LFTs normal this admission. Incidental anorectal mass observed on imaging with outpatient evaluation planned Review of Systems Review of Systems: Complete review of systems is otherwise as stated above, negative, or noncontributory Physical Exam Physical Exam: General: A&Ox3. NAD. HENT: Normocephalic. Atraumatic. Eyes: PER. Conjunctiva pink, sclera clear. Neck: No carotid bruits. No JVD. Heart: RRR. No murmur. Lungs: Clear to auscultation. Abdomen: +BS. Soft. Nontender. No masses or organomegaly. Extremities: No clubbing, cyanosis, or edema. Limited neurological examination is without focal deficits. Pulses: radial=2/4, posterior tibial=2/4. Results & Data Vital Signs (Past 12 Hours) Vital Signs Temp Pulse Pulse Resp BP Pulse Ox O2 Del Method 01/27/24 14:27 37.2 C 73 18 167/90 H 96 Room Air 01/27/24 14:27 73 01/27/24 12:06 36.9 C 70 18 135/79 98 Room Air 01/27/24 07:48 66 01/27/24 07:20 36.3 C L 65 18 168/92 H 96 Room Air 01/27/24 04:25 63 157/77 H 96 Room Air Laboratory Results CBC 01/27/24 Range/Units 06:11 WBC 9.72 (4.8-10.8) K/ul RBC 4.57 (4.20-5.40) M/uL Hgb 13.4 (12.0-16.0) g/dl Hct 40.4 (37.0-47.0) % Plt Count 249 (130-400) K/uL Comprehensive Metabolic Panel 01/27/24 Range/Units 06:11 Sodium 139 (136-145) mmol/L Potassium 3.7 (3.5-5.1) mmol/L Chloride 107 (98-107) mmol/L Carbon Dioxide 26 (21-32) mmol/L BUN 11 (6-23) mg/dl Creatinine 0.68 (0.6-1.2) mg/dl Glucose 108 H (70-99(Fasting)) mg/dl Calcium 8.8 (8.6-10.3) mg/dl Intake and Output 01/27/24 01/27/24 01/27/24 06:59 14:59 22:59 Intake Total 350 / 1587.317 479.717 / 479.717 Balance 350 / 1586.317 479.717 / 479.717 Intake: IV 200 / 1047.317 239.717 / 239.717 Amiodarone / D5w 360 mg In 200 200 / 200 ml @ 0.5 MG/MIN 16.667 mls/hr IV .Q12H [facility] Rx#:[id number] Heparin Sodium/Dextrose 25,000 239.717 / 239.717 units In 500 ml @ 850 UNITS/HR 17 mls/hr IV .Q24H [facility] Rx#: [id number] Oral 150 / 540 240 / 240 Other: Weight 64.4 kg
--- NOTE | 2024-01-27 15:17 | Hospitalist Progress Note ---
Date of Service January 27, 2024 Assessment & Plan (1) Atrial fibrillation with RVR: Plan: This is a 73-year-old female with PMH of hyperlipidemia, GERD, recent palpitations with outpatient ZIO monitoring demonstrating frequent runs of paroxysmal supraventricular tachycardia who presents with lightheadedness and found to have atrial fibrillation with RVR. Atrial fibrillation with RVR Recently seen by Dr. Hopper in clinic, ZIO monitoring demonstrating frequent runs of paroxysmal supraventricular tachycardia, started on Lopressor 25mg PO BID last week Presenting with HR in 110-150s, initial ECG showing atrial fibrillation with rvr CXR without acute cardiopulmonary abnormality, unremarkable CTA chest of the abdominal aorta and its major branches. No acute infectious or inflammatory findings are identified in the abdomen or pelvis Was hypotensive with SBP in 70-80s initially Given amiodarone bolus and drip with improved HR and clinical status HR in 110s during evaluation Continue amio drip Monitor on tele Obtain 2D echo TSH WNL last month, Mag pending Routine cardiology consult Anticoagulate with IV heparin, chadvasc score of 3 given gender and age Repleting Mg and K with goal to keep >2 and >4 respectively 01/25 Continue amiodarone drip, heparin drip Continue metoprolol 25 mg p.o. twice daily Possible cardioversion on Monday if patient does not convert to sinus rhythm through the weekend 01/26 Patient converted to sinus rhythm Discussed with cardiology service Transition to amiodarone 20 mg p.o. twice daily Eliquis 5 mg p.o. twice daily Continue metoprolol Hypertension Given amlodipine 5 mg this morning BP still elevated Give hydralazine 25 mg p.o. 1 dose for now and monitor trend Discussed with surgeon's assistant Possible demand ischemia secondary to above Troponin 336 No chest pain (2) GERD (gastroesophageal reflux disease): Plan: Chronic, stable Continue PPI, H2 blockers (3) Abnormal CT of the abdomen: Plan: CTA abd/pelvis showing a 8.5 cm heterogeneous mass centered in the right perine al soft tissues as detailed above. This causes mass effect on the adjacent vagina, and significantly effaces/displaces the adjacent rectum/anus. Neoplasm is the diagnosis of exclusion Routine obgyn consult placed 01/25 Awaiting further recommendations from SUPERVISOR W[employer]OPE [employer]ABRICATION service 01/26 MOTEL FRONT DESK ATTENDANT recommended general surgery evaluation for perirectal mass Pelvic MRI noted Discussed with general surgery, recommend referral to gastroenterology service for possible biopsy via colonoscopy Will arrange as an outpatient (4) HLD (hyperlipidemia): Plan: Chronic, stable. Continue statin DVT Ppx: Eliquis p.o. Code status: FULL PCP: Jessica Dispo: Anticipate discharge to home when medically stable, hopefully tomorrow Admission and Anticipated Discharge Date Admission Date: January 25, 2024 Subjective ff up for a fib with RVR, etc. Seen resting in bed, comfortable, not in distress Patient's and daughter at the bedside visiting States she feels fine overall no chest pain, dyspnea, palpitations, dizziness Ambulating in the room with no problems No abdominal/pelvic pain No bleeding No other new symptom Review of Systems Review of Systems: all noted and negative except for above Physical Exam Physical Exam: General- oriented x 3, not in distress, speaks in sentences with no effort or accessory muscle use Eyes- anicteric Neck- no JVD Lungs- clear breath sounds bilaterally, no crackles or wheezing Heart- normal rate, regular rhythm; no murmurs Abdomen- normal bowel sounds, nondistended, soft, nontender Extremities- no pretibial edema, no calf tenderness Neuro- alert, oriented x 3; no gross focal neurologic deficits Skin- warm & dry Results & Data Results & Data Vital Signs (Past 12 Hours) Vital Signs Temp Pulse Pulse Resp BP Pulse Ox O2 Del Method 01/27/24 14:27 37.2 C 73 18 167/90 H 96 Room Air 01/27/24 14:27 73 01/27/24 12:06 36.9 C 70 18 135/79 98 Room Air 01/27/24 07:48 66 01/27/24 07:20 36.3 C L 65 18 168/92 H 96 Room Air 01/27/24 04:25 63 157/77 H 96 Room Air all noted and reviewed including below
[2024-01-27] MEDS: AMIODARONE 200 MG TAB PO SCH (16:05)
[2024-01-27] MEDS: hydrALAZINE HCL 25 MG TAB PO STA (16:06)
[2024-01-27] MEDS: APIXABAN 5 MG TABLET PO SCH (21:00)
[2024-01-27] MEDS: METOPROLOL TARTRATE 25 MG TAB PO SCH (21:00)
[2024-01-28 06:41] LABS: ANTI-Xa, UFH(UnfractionatedHep 0.69 IU/ml (0.3-0.7)
--- NOTE | 2024-01-28 09:22 | Gynecologic Progress Note ---
Date of Service January 28, 2024 Assessment & Plan Admission and Anticipated Discharge Date Admission Date: January 25, 2024 Subjective I reviewed her imaging, Pelvic US and MRI Perirectal mass Consulted G Surgery, plan for transrectal biopsy Will sign off Results & Data Vital Signs (Past 12 Hours) Vital Signs Temp Pulse Pulse Resp BP Pulse Ox O2 Del Method 01/28/24 07:15 36.6 C 77 18 145/79 H 97 Room Air 01/28/24 02:51 36.8 C 72 18 177/84 H 96 Room Air 01/27/24 23:00 37.1 C 70 18 157/80 H 93 Room Air 01/27/24 21:56 80
--- NOTE | 2024-01-28 13:01 | Cardiology Progress Note ---
<Statement entered by Gladys Gramajo MD - 01/28/24 18:57> I have reviewed the advanced practitioner's documentation on the date of service referenced in note, and I agree with, and take responsibility for the plan of care. 73-year-old female admitted with atrial fibrillation with rapid ventricular rate spontaneously converted to sinus rhythm Started on amiodarone, metoprolol and anticoagulation Follow-up outpatient with cardiology I spent a total of [10 ] minutes coordinating, documenting, and providing care for this patient excluding time spent in the performance of separately billed services or time spent by another provider. Date of Service January 28, 2024 Assessment & Plan (1) Atrial fibrillation with RVR: (2) Elevated troponin: Plan 73 year old female with longstanding history of palpitations secondary to PSVT, presenting this admission with highly symptomatic atrial fibrillation with rapid ventricular response status post spontaneous conversion on January 26, 2024 at 17:51. Elevated troponin in the setting of demand. Low likelihood for ACS. Incidental anorectal mass discovered. Recommendations: 1. Increase activity as tolerated. 2. Check EKG, RE: Assess QTc 3. Add losartan 25 mg/day for additional blood pressure control 4. Metoprolol tartrate 25 mg twice per day 5. Amiodarone 200 mg twice per day 6. Eliquis 5 mg twice per day 7. Outpatient cardiology follow-up in 2 weeks I spent a total of 45 minutes on the date of service in preparation, delivery, and documentation of the care provided to this patient excluding any time spent in the performance of separately billed services. This visit was a split-shared visit with the substantive portion of the medical decision making performed by the supervising monorail helper/billing provider. Admission and Anticipated Discharge Date Admission Date: January 25, 2024 Subjective Patient seen and examined. Chart, medications, telemetry reviewed. Family at bedside. Telemetry: Sinus over the last 24 hours, heart rates predominantly in the 70s to 80s Blood pressure elevated, receiving amlodipine and hydralazine yesterday Review of Systems Review of Systems: Complete review of systems is otherwise as stated above, negative, or noncontributory Physical Exam Physical Exam: General: A&Ox3. NAD. HENT: Normocephalic. Atraumatic. Eyes: PER. Conjunctiva pink, sclera clear. Neck: No carotid bruits. No JVD. Heart: RRR. Lungs: Clear to auscultation. Abdomen: +BS. Extremities: No edema. Limited neurological examination is without focal deficits. Results & Data Vital Signs (Past 12 Hours) Vital Signs Temp Pulse Resp BP Pulse Ox O2 Del Method 01/28/24 10:30 37.2 C 71 19 144/78 H 98 Room Air 01/28/24 07:15 36.6 C 77 18 145/79 H 97 Room Air 01/28/24 02:51 36.8 C 72 18 177/84 H 96 Room Air Laboratory Results Intake and Output 01/27/24 01/28/24 01/28/24 22:59 06:59 14:59 Intake Total 289.940 / 769.657 Balance 289.940 / 769.657 Intake: IV 289.940 / 529.657 Amiodarone / D5w 360 mg In 200 184.257 / 184.257 ml @ 0.5 MG/MIN 16.667 mls/hr IV .Q12H [facility] Rx#:[id number] Heparin Sodium/Dextrose 25,000 105.683 / 345.400 units In 500 ml @ 850 UNITS/HR 17 mls/hr IV .Q24H [facility] Rx#: [id number] Other: # Unmeasured Voids 1 3 Weight 62.8 kg Weight Measurement Method Built in [facility]
--- NOTE | 2024-01-28 13:19 | Hospitalist Progress Note ---
Date of Service January 28, 2024 Assessment & Plan (1) Atrial fibrillation with RVR: Plan: This is a 73-year-old female with PMH of hyperlipidemia, GERD, recent palpitations with outpatient ZIO monitoring demonstrating frequent runs of paroxysmal supraventricular tachycardia who presents with lightheadedness and found to have atrial fibrillation with RVR. Atrial fibrillation with RVR Recently seen by Dr. Hopper in clinic, ZIO monitoring demonstrating frequent runs of paroxysmal supraventricular tachycardia, started on Lopressor 25mg PO BID last week Presenting with HR in 110-150s, initial ECG showing atrial fibrillation with rvr CXR without acute cardiopulmonary abnormality, unremarkable CTA chest of the abdominal aorta and its major branches. No acute infectious or inflammatory findings are identified in the abdomen or pelvis Was hypotensive with SBP in 70-80s initially Given amiodarone bolus and drip with improved HR and clinical status HR in 110s during evaluation Continue amio drip Monitor on tele Obtain 2D echo TSH WNL last month, Mag pending Routine cardiology consult Anticoagulate with IV heparin, chadvasc score of 3 given gender and age Repleting Mg and K with goal to keep >2 and >4 respectively 01/25 Continue amiodarone drip, heparin drip Continue metoprolol 25 mg p.o. twice daily Possible cardioversion on Monday if patient does not convert to sinus rhythm through the weekend 01/27 Patient converted to sinus rhythm Discussed with cardiology service Transitioned to amiodarone 20 mg p.o. twice daily Eliquis 5 mg p.o. twice daily Continue metoprolol check EKG to monitor QT Hypertension Given amlodipine 5 mg this morning BP still elevated Give hydralazine 25 mg p.o. 1 dose for now and monitor trend Discussed with senior supplier quality engineer 01/27 Cardiology service recommending Losartan 25mg po daily Possible demand ischemia secondary to above Troponin 336 No chest pain (2) GERD (gastroesophageal reflux disease): Plan: Chronic, stable Continue PPI, H2 blockers (3) Abnormal CT of the abdomen: Plan: CTA abd/pelvis showing a 8.5 cm heterogeneous mass centered in the right perineal soft tissues as detailed above. This causes mass effect on the adjacent vagina, and significantly effaces/displaces the adjacent rectum/anus. Neoplasm is the diagnosis of exclusion Routine obgyn consult placed 01/25 Awaiting further recommendations from ZIPPER MEASURER service 01/27 VETERINARY ATTENDANT recommended general surgery evaluation for perirectal mass Pelvic MRI noted Discussed with general surgery, recommend referral to gastroenterology service for possible biopsy via colonoscopy Will arrange as an outpatient (4) HLD (hyperlipidemia): Plan: Chronic, stable. Continue statin DVT Ppx: Eliquis p.o. Code status: FULL PCP: Jessica Dispo: Anticipate discharge to home when medically stable, hopefully tomorrow Admission and Anticipated Discharge Date Admission Date: January 25, 2024 Subjective ff up for a fib RVR, etc seen resting in bed, comfortable in good spirits states she feels fine overall no chest pain, dyspnea, palpitations, dizziness no abdominal pain, nausea/vomiting no other symptoms Review of Systems Review of Systems: all noted and negative except for above Physical Exam Physical Exam: General- oriented x 3, not in distress, speaks in sentences with no effort or accessory muscle use Eyes- anicteric Neck- no JVD Lungs- clear breath sounds bilaterally, no crackles/wheezing Heart- normal rate, regular rhythm; no murmurs Abdomen- normal bowel sounds, nondistended, soft, nontender Extremities- no pretibial edema, no calf tenderness Neuro- alert, oriented x 3; no gross focal neurologic deficits Skin- warm & dry Results & Data Results & Data Vital Signs (Past 12 Hours) Vital Signs Temp Pulse Resp BP Pulse Ox O2 Del Method 01/28/24 10:30 37.2 C 71 19 144/78 H 98 Room Air 01/28/24 07:15 36.6 C 77 18 145/79 H 97 Room Air 01/28/24 02:51 36.8 C 72 18 177/84 H 96 Room Air all noted and reviewed including below
[2024-01-28] MEDS: LOSARTAN POTASSIUM 25 MG TAB PO SCH (13:35)
--- NOTE | 2024-01-28 15:06 | Electrocardiogram Report ---
Test Reason : Blood Pressure : / mmHG Vent. Rate : 077 BPM Atrial Rate : 077 BPM P-R Int : 188 ms QRS Dur : 068 ms QT Int : 362 ms P-R-T Axes : 065 051 055 degrees QTc Int : 409 ms Normal sinus rhythm Possible Old Anteroseptal infarct Abnormal ECG When compared with ECG of 27-JAN-2024 05:26, Borderline Criteria for Anteroseptal infarct now present Confirmed by Zafar Johnson ([id number]) on 01/28/2024 3:06:14 PM Referred By: REFERRED SELF Confirmed By:Zafar Johnson
--- NOTE | 2024-01-28 15:22 | Hospitalist Progress Note ---
Date of Service January 28, 2024 Assessment & Plan (1) Atrial fibrillation with RVR: Plan: This is a 73-year-old female with PMH of hyperlipidemia, GERD, recent palpitations with outpatient ZIO monitoring demonstrating frequent runs of paroxysmal supraventricular tachycardia who presents with lightheadedness and found to have atrial fibrillation with RVR. Atrial fibrillation with RVR Recently seen by Dr. Hopper in clinic, ZIO monitoring demonstrating frequent runs of paroxysmal supraventricular tachycardia, started on Lopressor 25mg PO BID last week Presenting with HR in 110-150s, initial ECG showing atrial fibrillation with rvr CXR without acute cardiopulmonary abnormality, unremarkable CTA chest of the abdominal aorta and its major branches. No acute infectious or inflammatory findings are identified in the abdomen or pelvis Was hypotensive with SBP in 70-80s initially Given amiodarone bolus and drip with improved HR and clinical status HR in 110s during evaluation Continue amio drip Monitor on tele Obtain 2D echo TSH WNL last month, Mag pending Routine cardiology consult Anticoagulate with IV heparin, chadvasc score of 3 given gender and age Repleting Mg and K with goal to keep >2 and >4 respectively 01/25 Continue amiodarone drip, heparin drip Continue metoprolol 25 mg p.o. twice daily Possible cardioversion on Monday if patient does not convert to sinus rhythm through the weekend 01/27 Patient converted to sinus rhythm Discussed with cardiology service Transitioned to amiodarone 20 mg p.o. twice daily Eliquis 5 mg p.o. twice daily Continue metoprolol check EKG to monitor QT Hypertension Given amlodipine 5 mg this morning BP still elevated Give hydralazine 25 mg p.o. 1 dose for now and monitor trend Discussed with marketing planning manager 01/27 Cardiology service recommending Losartan 25mg po daily Possible demand ischemia secondary to above Troponin 336 No chest pain (2) GERD (gastroesophageal reflux disease): Plan: Chronic, stable Continue PPI, H2 blockers (3) Abnormal CT of the abdomen: Plan: CTA abd/pelvis showing a 8.5 cm heterogeneous mass centered in the right perineal soft tissues as detailed above. This causes mass effect on the adjacent vagina, and significantly effaces/displaces the adjacent rectum/anus. Neoplasm is the diagnosis of exclusion Routine obgyn consult placed 01/25 Awaiting further recommendations from PROGRAM LEAD service 01/27 BASEBOARD HEATING INSTALLER recommended general surgery evaluation for perirectal mass Pelvic MRI noted Discussed with general surgery, recommend referral to gastroenterology service for possible biopsy via colonoscopy Will arrange as an outpatient (4) HLD (hyperlipidemia): Plan: Chronic, stable. Continue statin DVT Ppx: Eliquis p.o. Code status: FULL PCP: Jessica Dispo: Anticipate discharge to home when medically stable, hopefully tomorrow Admission and Anticipated Discharge Date Admission Date: January 25, 2024 Subjective Follow-up for Results & Data Results & Data Vital Signs (Past 12 Hours) Vital Signs Temp Pulse Resp BP Pulse Ox O2 Del Method 01/28/24 10:30 37.2 C 71 19 144/78 H 98 Room Air 01/28/24 07:15 36.6 C 77 18 145/79 H 97 Room Air
--- NOTE | 2024-01-28 16:26 | Discharge Summary ---
Discharge Summary Date of Service January 28, 2024 Notes For Next Care Provider Please refer to gastroenterology service 1 to 2 weeks postdischarge for evaluation of perirectal mass-possible biopsy via colonoscopy as per general surgery recommendation. Medication Changes From Visit Amiodarone-for treatment of atrial fibrillation -To be taken as follows: 200 mg p.o. twice daily x 1 week, then 200 mg p.o. once daily Eliquis-blood thinner for stroke prevention -If you experience any head trauma, even if you are feeling fine, you need to go to the emergency room for urgent evaluation including a CAT scan of your head. Losartan-for blood pressure control Admission HPI Per Admitting Provider This is a 73-year-old female with PMH of hyperlipidemia, GERD, recent palpitations and other medical problems listed below who presents with episode of tachycardia earlier today. Has been struggling with intermittent episodes of tachycardia over the past 9 months and was seen by cardiology on 01/16 with outpatient ZIO monitoring demonstrating frequent runs of paroxysmal supraventricular tachycardia. States she has been on Lopressor 25 mg twice daily for the past week and had an echo ordered but the study has not yet been done. Had an episode last Monday where her heart was racing but has felt back to baseline since then until around lunchtime today, when she was in her kitchen making lunch and became dizzy. Went to lie down which did not relieve symptoms and started to feel generally weak and unable to catch her breath. brought her in to ED for further evaluation and while in waiting room, developed nausea and near syncope. Was evaluated around this time with EKG showing A-fib with RVR at 117 bpm. Given amiodarone bolus and started on drip with improved clinical status. Now feeling much better and able to catch her breath. Feelings of palpitations have improve and nausea resolved. No F/C, headache, CP, vomiting, abdominal pain, dysuria, diarrhea or constipation. Recent TSH within range at 1.49 on 12/21/23. Admission Exam Per Admitting Provider General- oriented x 3, not in distress, speaks in sentences with no effort or accessory muscle use Eyes- anicteric Neck- no JVD Lungs- clear breath sounds bilaterally, no crackles/wheezing Heart- normal rate, regular rhythm; no murmurs Abdomen- normal bowel sounds, nondistended, soft, nontender Extremities- no pretibial edema, no calf tenderness Neuro- alert, oriented x 3; no gross focal neurologic deficits Skin- warm & dry Principal Dx & Hospital Course #1 = Principal Diagnosis (1) Atrial fibrillation with RVR: (2) GERD (gastroesophageal reflux disease): (3) Abnormal CT of the abdomen: (4) HLD (hyperlipidemia): (1) Atrial fibrillation with RVR: Plan: This is a 73-year-old female with PMH of hyperlipidemia, GERD, recent palpitations with outpatient ZIO monitoring demonstrating frequent runs of paroxysmal supraventricular tachycardia who presents with lightheadedness and found to have atrial fibrillation with RVR. Atrial fibrillation with RVR Recently seen by Dr. Hopper in clinic, ZIO monitoring demonstrating frequent runs of paroxysmal supraventricular tachycardia, started on Lopressor 25mg PO BID last week Presenting with HR in 110-150s, initial ECG showing atrial fibrillation with rvr CXR without acute cardiopulmonary abnormality, unremarkable CTA chest of the abdominal aorta and its major branches. No acute infectious or inflammatory findings are identified in the abdomen or pelvis Was hypotensive with SBP in 70-80s initially Given amiodarone bolus and drip with improved HR and clinical status HR in 110s during evaluation Continue amio drip Monitor on tele Obtain 2D echo TSH WNL last month, Mag pending Routine cardiology consult Anticoagulate with IV heparin, chadvasc score of 3 given gender and age Repleting Mg and K with goal to keep >2 and >4 respectively 01/25 Continue amiodarone drip, heparin drip Continue metoprolol 25 mg p.o. twice daily Possible cardioversion on Monday if patient does not convert to sinus rhythm through the weekend 01/27 Patient converted to sinus rhythm Discussed with cardiology service Transitioned to amiodarone 200mg p.o. twice daily x 1 week, then 200mg daily Eliquis 5 mg p.o. twice daily also started Continue usual metoprolol ff up with Cryptologic Technician in [address]/MRI Findings: Rectal Mass Plan: CTA abd/pelvis showing a 8.5 cm heterogeneous mass centered in the right perineal soft tissues as detailed above. This causes mass effect on the adjacent vagina, and significantly effaces/displaces the adjacent rectum/anus. Neoplasm is the diagnosis of exclusion Plevic MRI: 1. 7.8 x 7 x 6.7 cm lobulated enhancing right anorectal mass which extends through the levator ani into the right ischiorectal fossa. The mass displaces the rectum leftward and vagina anteriorly. This is consistent with a neoplasm however the MRI appearance is nonspecific. A differential consideration includes an exophytic anorectal GI stromal tumor arising from the rectum. Although within the differential, the appearance is not typical for adenocarcinoma. Additional considerations include lymphoma and carcinoid. 2. No pelvic lymphadenopathy. Small amount of fluid within the pelvis, a nonspecific finding. 3. Small 6 mm left sacral ala lesion. This is indeterminate but low suspicion. This can be assessed on follow-up exams to ensure stability. 4. Status post hysterectomy and bilateral oophorectomy. 01/27 HOGSHEAD WRECKER consulted, recommended general surgery evaluation for perirectal mass Pelvic MRI noted Discussed with general surgery, recommend referral to gastroenterology service for possible biopsy via colonoscopy needs to be arranged as an outpatient " The abdominal aorta is normal in course and caliber noting mild to moderate atherosclerotic calcification. The abdominal aorta is widely patent. No dissection is seen. The iliac arteries are widely patent bilaterally." -- further evaluation and management as outpatient "There is a 1 cm left thyroid nodule. This does not meet CT criteria for follow- up" - TSH normal Hypertension BP elevated 01/27 Cardiology service recommending Losartan 25mg po daily monitor as outpatient Possible demand ischemia secondary to above Troponin 336 No chest pain GERD (gastroesophageal reflux disease): Plan: Chronic, stable Continue PPI, H2 blockers HLD (hyperlipidemia): Plan: Chronic, stable. Continue statin Dispo: d/c home PCP ff up in 1 week GI follow up in 1-2 weeks Cardio follow up in 2 weeks Discharge Exam General- oriented x 3, not in distress, speaks in sentences with no effort or accessory muscle use Eyes- anicteric Neck- no JVD Lungs- clear breath sounds bilaterally, no crackles/wheezing Heart- normal rate, regular rhythm; no murmurs Abdomen- normal bowel sounds, nondistended, soft, nontender Extremities- no pretibial edema, no calf tenderness Neuro- alert, oriented x 3; no gross focal neurologic deficits Skin- warm & dry Updated Medication List Medication Instructions Recorded Confirmed Type Prolia 60 mg subcut Q6M 01/25/24 01/25/24 History calcium carbonate 600 mg-vitamin 1 tab PO DAILY 01/25/24 01/25/24 History D3 10 mcg (400 unit) tablet (Calcium 600 + D(3)) cholecalciferol (vitamin D3) 25 25 mcg PO DAILY 01/25/24 01/25/24 History mcg (1,000 unit) chewable tablet (Vitamin D3) famotidine 20 mg tablet 20 mg PO HS 01/25/24 01/25/24 History metoprolol tartrate 25 mg tablet 25 mg PO BID 01/25/24 01/25/24 History multivitamin 1 tab PO DAILY 01/25/24 01/25/24 History pantoprazole 40 mg tablet,delayed 40 mg PO DAILY 01/25/24 01/25/24 History release rosuvastatin 5 mg tablet 5 mg PO DAILY 01/25/24 01/25/24 History amiodarone 200 mg tablet 200 mg PO BIDM #35 tabs 01/27/24 Rx apixaban 5 mg tablet (Eliquis) 5 mg PO BID 30 days #60 tabs 01/27/24 Rx losartan 25 mg tablet 25 mg PO QAM 30 days #30 tabs 01/28/24 Rx Hospital Stay Data Consultations 01/25/24 18:03 ED Decision to Admit Stat 01/25/24 18:22 Consult Cardiology Routine 01/26/24 07:00 Consult Gynecology Routine 01/27/24 08:54 Consult General Surgery Routine Diagnostic Imagining Performed Laboratory Results WBC 9.72 K/ul (4.8-10.8) 01/27/24 06:11 RBC 4.57 M/uL (4.20-5.40) 01/27/24 06:11 Hgb 13.4 g/dl (12.0-16.0) 01/27/24 06:11 Hct 40.4 % (37.0-47.0) 01/27/24 06:11 MCV 88.4 fL (80.0-100.0) 01/27/24 06:11 MCH 29.3 pg (25.0-34.0) 01/27/24 06:11 MCHC 33.2 g/dL (32.0-36.0) 01/27/24 06:11 RDW Std Deviation 38.5 fL (36.4-46.3) 01/27/24 06:11 RDW Coeff of Maggie 12.0 % (11.5-14.5) 01/27/24 06:11 Plt Count 249 K/uL (130-400) 01/27/24 06:11 MPV 10.3 fL (9.4-12.4) 01/27/24 06:11 Immature Gran % (Auto) 0.3 % 01/25/24 14:16 Neut % (Auto) 64.4 % 01/25/24 14:16 Lymph % (Auto) 27.5 % 01/25/24 14:16 Gosper % (Auto) 6.6 % 01/25/24 14:16 Eos % (Auto) 0.6 % 01/25/24 14:16 Baso % (Auto) 0.6 % 01/25/24 14:16 Neut # (Auto) 5.86 K/uL (1.40-6.50) 01/25/24 14:16 Lymph # (Auto) 2.50 K/uL (1.20-3.40) 01/25/24 14:16 Gosper # (Auto) 0.60 K/uL (0.11-0.59) H 01/25/24 14:16 Eos # (Auto) 0.05 K/uL (0.00-0.50) 01/25/24 14:16 Baso # (Auto) 0.05 K/uL (0.00-0.20) 01/25/24 14:16 Immature Gran # (Auto) 0.03 K/uL (0.01-0.20) 01/25/24 14:16 PT 11.2 Seconds (9.0-12.0) 01/25/24 14:16 INR 1.0 (0.9-1.1) 01/25/24 14:16 APTT 25 Seconds (21-31) 01/25/24 14:16 PTT Ratio 0.9 01/25/24 14:16 Heparin Anti-Xa, Unfract 0.69 IU/ml (0.3-0.7) 01/28/24 05:41 Sodium 139 mmol/L (136-145) 01/27/24 06:11 Potassium 3.7 mmol/L (3.5-5.1) 01/27/24 06:11 Chloride 107 mmol/L (98-107) 01/27/24 06:11 Carbon Dioxide 26 mmol/L (21-32) 01/27/24 06:11 Anion Gap 6 (3-11) 01/27/24 06:11 BUN 11 mg/dl (6-23) 01/27/24 06:11 Creatinine 0.68 mg/dl (0.6-1.2) 01/27/24 06:11 Est Cr Clr Drug Dosing 66.9 ml/min 01/27/24 06:11 Est GFR ( Amer) 99.2 ml/min 01/27/24 06:11 Est GFR (Non-Af Amer) 85.6 ml/min 01/27/24 06:11 BUN/Creatinine Ratio 16.2 (10-20) 01/27/24 06:11 Glucose 108 mg/dl (70-99(Fasting)) H 01/27/24 06:11 Calcium 8.8 mg/dl (8.6-10.3) 01/27/24 06:11 Magnesium 1.8 mg/dl (1.7-2.4) 01/25/24 14:16 Total Bilirubin 0.4 mg/dl (0.2-1.0) 01/25/24 14:16 AST 25 U/L (13-39) 01/25/24 14:16 ALT 23 U/L (7-52) 01/25/24 14:16 Alkaline Phosphatase 60 U/L (34-104) 01/25/24 14:16 Troponin I High Sens 336.3 pg/ml (0-14) H* D 01/26/24 05:38 Total Protein 6.0 gm/dl (6.0-8.3) 01/25/24 14:16 Albumin 3.6 gm/dl (3.4-5.0) 01/25/24 14:16 Globulin 2.4 gm/dl (2.5-4.0) L 01/25/24 14:16 Albumin/Globulin Ratio 1.5 (0.9-2) 01/25/24 14:16 Carcinoembryonic Ag 1.0 ng/ml (0-2.5) 01/26/24 09:19 TSH 1.499 uIu/ml (0.300-4.500) 01/26/24 05:38 Anaplasma Smear See Comment 01/26/24 05:38 Babesia Smear See Comment 01/26/24 05:38 Lyme Disease Screen Negative (Negative) 01/26/24 05:38 Impressions Abdomen/Pelvis CTA 01/25/24 00:00 Mai Quintana CTA abd/pel CT ANGIOGRAM OF THE ABDOMEN AND PELVIS CLINICAL HISTORY: Generalized weakness. COMPARISON STUDY: No priors. TECHNIQUE: Following the IV administration of 114 cc of Optiray 320, CT angiogram of the abdomen and pelvis was performed from the lung bases the proximal femora. Images are reviewed in the axial, sagittal, and coronal planes. 3-D MIPS images are created and assessed. IV contrast was administered without complication. A dose lowering technique was utilized adhering to the principles of ALARA. The examination is degraded by streak artifact from the arms which could not be elevated above the abdomen. FINDINGS: Lower chest: The heart is normal in size and without pericardial effusion. There is bibasilar scarring/atelectasis. The lung bases are otherwise clear. Liver: The contrast-enhanced liver is normal in size, contour, and attenuation. There is no intrahepatic biliary ductal dilatation. Gallbladder: Unremarkable. Spleen: Normal in size and attenuation noting heterogeneous arterial phase enhancement. Pancreas: Unremarkable. Adrenal glands: Unremarkable. Kidneys: The contrast enhanced kidneys are normal in size and without hydronephrosis. The kidneys enhance symmetrically. A retroaortic left renal vein is incidentally noted. Abdominal aorta and iliac arteries: The abdominal aorta is normal in course and caliber noting mild to moderate atherosclerotic calcification. The abdominal aorta is widely patent. No dissection is seen. The iliac arteries are widely patent bilaterally. Major branches of the abdominal aorta: The celiac trunk, superior mesenteric, and inferior mesenteric arteries are widely patent. Hepatic arterial anatomy is conventional. The splenic artery is patent. Single bilateral renal arteries are widely patent. Bowel: There is mild to moderate colonic diverticulosis without CT evidence of acute diverticulitis. No bowel obstruction is seen.. The appendix is well- visualized and normal. Peritoneum: There is no intraperitoneal free air or abdominal ascites. Lymphadenopathy: None. Pelvic viscera: The bladder is normal as visualized. The uterus is surgically absent. There is an approximately 8 x 8.5 x 6.5 cm soft tissue mass centered in the right perineum seen on axial image #384. This causes anterior displacement of the vagina, and also causes mass effect on the adjacent rectum/anus. Skeletal structures: The skeletal structures are osteopenic. Mild lumbosacral spondylosis is observed. No destructive bony lesions are seen. IMPRESSION: 1. Unremarkable CT angiogram of the abdominal aorta and its major branches. 2. No acute infectious or inflammatory findings are identified in the abdomen or pelvis. 3. There is approximately 8.5 cm heterogeneous mass centered in the right perineal soft tissues as detailed above. This causes mass effect on the adjacent vagina, and significantly effaces/displaces the adjacent rectum/anus. Neoplasm is the diagnosis of exclusion. Oncological follow-up will be required. 4. Additional findings as above. ACT 112: Positive. There are findings on this exam that require communication between the performing entity and the patient following Patient Test Result Information Act ([place] Act 112) guidelines. Electronically signed by: Zana Choi M.D. 01/25/2024 4:05 PM Chest CTA 01/25/24 00:00 CHEST CTA for AORTIC DISSECTION CT DOSE: HISTORY: Chest and back pain. Weakness. TECHNIQUE: Multiaxial CT images of the chest were performed both before and after the intravenous administration of contrast to evaluate the aorta. 3D/MIP images were also obtained. Sagittal and coronal reformations were also reviewed. A dose lowering technique was utilized adhering to the principles of ALARA. COMPARISON STUDY: None. FINDINGS: Noncontrast imaging through the chest shows no evidence for an intramural hematoma within the thoracic aorta. The thoracic aorta is normal in course and caliber with no evidence for a dissection. The main pulmonary arteries are patent. The heart is mildly enlarged. No pleural or pericardial effusions. There is a 1 cm left thyroid nodule. This does not meet CT criteria for follow-up. Abdominal structures will be reported on the same day abdomen and pelvis CT. Normal caliber esophagus. No mediastinal or hilar lymphadenopathy. Minimal anterior wedging within the mid thoracic spine vertebral body which is likely chronic. No acute fractures identified within the chest. No pneumothorax. The central airways are patent. Mild dependent changes seen within the lungs posteriorly. No focal lung consolidations to suggest a pneumonia. No evidence for pulmonary edema. IMPRESSION: No evidence for an aortic dissection. ACT 112: Negative or not required by law. Electronically signed by: Juan Wolf M.D. 01/25/2024 4:07 PM Chest X-Ray 01/25/24 00:00 PORTABLE AP CHEST RADIOGRAPH CLINICAL HISTORY: Chest pain. COMPARISON STUDY: Chest CT performed earlier today. FINDINGS: Lung volumes are normal. There is no consolidation. No pneumothorax or pleural effusion is present. There is subtle interstitial thickening without overt pulmonary edema. Cardiac size is normal. Mediastinal contours are normal. IMPRESSION: No acute cardiopulmonary findings. ACT 112: Negative or not required by law. Electronically signed by: Antonio Menendez M.D. 01/25/2024 4:23 PM Pelvis Ultrasound 01/27/24 08:51 PELVIC ULTRASOUND CLINICAL HISTORY: perirectal mass, h/o hysterectomy and BSO COMPARISON STUDY: CTA of the abdomen and pelvis. MRI of the pelvis performed earlier today. TECHNIQUE: Transabdominal and transvaginal sonography of the pelvis was performed. FINDINGS: The uterus and ovaries are surgically absent. No free fluid is noted. There is a lobulated 8 x 6.8 x 7.7 cm right anorectal mass which contains color flow. This corresponds to the lesion on prior CT and MRI. This lesion displaces the vagina anteriorly. No additional masses are identified within the pelvis. No fluid collection is identified. IMPRESSION: 1. 8 x 6.8 x 7.7 cm right anorectal mass. This is consistent with a neoplasm but is pathologically indeterminate and better depicted on the pelvis MRI. Please see that report for further description. 2. Status post hysterectomy and bilateral oophorectomy. ACT 112: Negative or not required by law. Electronically signed by: Antonio Menendez M.D. 01/27/2024 12:25 PM Pelvis MRI 01/27/24 08:53 MRI OF THE PELVIS WITH AND WITHOUT CONTRAST CLINICAL HISTORY: PERIRECTAL MASS COMPARISON STUDY: CTA of the abdomen and pelvis January 25, 2024. TECHNIQUE: Utilizing a 1.5 Martha magnet and dedicated coil, multiplanar, multiecho imaging of the pelvis was performed pre and postcontrast administration. Intravenous injection of 6 cc of Gadavist was uneventful. FINDINGS: A small amount of fluid within the pelvis is present. A small 6 mm T1 hypointense enhancing lesion within the left sacral ala on axial image 7 of 35 is noted. There are no additional osseous lesions. There is no pelvic l ymphadenopathy. Note is made of an enhancing lobulated right anorectal mass which measures 7.8 x 7 x 6.7 cm. This corresponds to the lesion on CT of January 25, 2024. This displaces the rectum leftward and the vagina anteriorly and extends through the right levator ani into the right ischiorectal fossa. The majority of this lesion enhances. Multiple small nonenhancing components are present. The mass is hyperintense compared to skeletal muscle. No additional masses within the pelvis are present. The uterus and ovaries are surgically absent. Sigmoid diverticulosis is noted without evidence for acute diverticulitis. The bladder is unremarkable. IMPRESSION: 1. 7.8 x 7 x 6.7 cm lobulated enhancing right anorectal mass which extends through the levator ani into the right ischiorectal fossa. The mass displaces the rectum leftward and vagina anteriorly. This is consistent with a neoplasm however the MRI appearance is nonspecific. A differential consideration includes an exophytic anorectal GI stromal tumor arising from the rectum. Although within the differential, the appearance is not typical for adenocarcinoma. Additional considerations include lymphoma and carcinoid. 2. No pelvic lymphadenopathy. Small amount of fluid within the pelvis, a nonspecific finding. 3. Small 6 mm left sacral ala lesion. This is indeterminate but low suspicion. This can be assessed on follow-up exams to ensure stability. 4. Status post hysterectomy and bilateral oophorectomy. ACT 112: Negative or not required by law. Electronically signed by: Antonio Menendez M.D. 01/27/2024 11:38 AM 01/25/24 CT angio abdomen pelvis w con Stat CT angio chest dissec wo/w con Stat 01/27/24 08:51 US pelvic complete Urgent 01/27/24 08:53 MRI Pelvis [MR pelvis wo/w con] Urgent Pending Results Patient Have Any Pending Studies at Discharge: Yes Discharge Instructions Given to Patient (Per Discharging Provider) PLEASE REFER TO YOUR NEW MEDICATION LIST AND FOLLOW INSTRUCTIONS CAREFULLY. YOUR NEW MEDICATIONS INCLUDE: Amiodarone-for treatment of atrial fibrillation -To be taken as follows: 200 mg p.o. twice daily x 1 week, then 200 mg p.o. once daily Eliquis-blood thinner for stroke prevention -If you experience any head trauma, even if you are feeling fine, you need to go to the emergency room for urgent evaluation including a CAT scan of your head. Losartan-for blood pressure control PLEASE CALL YOUR PRIMARY CARE PHYSICIAN OR RETURN TO THE ER IF WITH WORSENING OF SYMPTOMS, INCLUDING Chest pain, shortness of breath, palpitations, Abdominal/pelvic pain, rectal bleeding, nausea vomiting, fevers or chills, etc. FOLLOW UP WITH PRIMARY CARE PHYSICIAN IN 1 WEEK. PLEASE FOLLOW-UP WITH TIP TESTER DR. HOPPER IN 1 WEEK. YOU ALSO NEED TO FOLLOW-UP WITH A SENIOR SALES MANAGER FOR FURTHER EVALUATION OF THE PERIRECTAL MASS THAT WAS DISCOVERED WHILE ADMITTED TO THE HOSPITAL. Total Time Total Time Spent Total Time Spent (In Minutes): >30 minutes
== END 2024-01-28 17:00 | disposition home or self-care (01) | DRG 309 ==
LOC: ED 17:08 → SUATTDRO 17:44 → 2S 17:44

== ENCOUNTER 2025-08-17 13:47 | Inpatient (IN) ==
--- NOTE | 2025-08-17 14:27 | Emergency Department Note ---
Impression & Plan SBO (small bowel obstruction), Nausea & vomiting, Hypertension, Colicky abdominal pain ED Provider Note NAME: KAREN AYALA AGE: 75 SEX: F : 1950 ARRIVES VIA: Walk-In INFORMANT: [Patient] ED PROVIDER(S): [Zana Pelayo MD] CHIEF COMPLAINT: DrClint Referred HISTORY OF PRESENT ILLNESS: The patient is a 75-year-old female who was in our ED last night for nausea and vomiting. She felt improved after medications and, wanted to try going home. She states that since discharge, she has had nausea and vomiting, she has been vomiting bile. She has not changed her colostomy bag or had any output into the bag for about 24 hours. She feels a bit bloated. She complains of some occasional crampy abdominal pain. She has not had fever, no cough or cold or congestion. No shortness of breath. She has not had a urinary burning. The patient is concerned she may have a bowel obstruction. Yesterday, she did not want a CT scan but, she has consented to a CT today. PMHx/PSHx/Social Hx: See Below PHYSICAL EXAM: GENERAL: Patient is in no acute distress. HEENT: No acute trauma, normocephalic atraumatic, mucous membranes slightly dry, no nasal congestion. NECK: No stridor, no adenopathy, no meningismus, trachea is midline. LUNGS: Clear to auscultation bilaterally, no wheeze, no rhonchi, breath sounds equal. HEART: Without murmurs gallops or rubs, regular rate and rhythm. ABDOMEN: Soft, mild distended with a colostomy in the left lower quadrant. The bag is empty. Minimally tender diffusely about the abdomen. Bowel sounds positive. EXTREMITIES: No cyanosis, full range of motion of all the joints without pain or difficulty. NEUROLOGIC: Oriented x 3, no acute motor or sensory deficits, no focal weakness. SKIN: No jaundice, no diaphoresis. DIFFERENTIAL DIAGNOSIS: Bowel obstruction, dehydration, electrolyte balance, UTI, among others. EMERGENCY DEPARTMENT PROCEDURES: MEDICAL DECISION MAKING: There is no leukocytosis or concerning anemia. There is a normal platelet count. No bandemia. No renal failure or significant electrolyte abnormality. No concerning liver enzyme elevation. No evidence for pancreatitis. ECG shows a sinus rhythm, no ischemia or dysrhythmia. Cardiac enzyme testing x 1 is not consistent with acute cardiac injury. Urinalysis shows some dehydration, no infection. Abdominal and pelvis CT shows a small bowel obstruction. On exam, the patient had some mild abdominal distention. She was not febrile. She had no output in her colostomy bag. Patient received IV saline, 1 L. She was given IV Phenergan for nausea. She received IV labetalol for her higher blood pressure. Eventually, an NG tube was placed to low intermittent suction. The patient did have output from the NG tube, she was feeling improved. There was significant discharge from the NG tube. I did speak with the colorectal surgical team at [facility]. The patient is not in need of emergent transfer. She can stay at our facility for NG tube decompression and hydration. If the bowel obstruction does not spontaneously resolve, transfer to [facility] would then be considered. I did speak with the patient and case management, the on-call hospitalist was consulted. Prior/Outside records/notes reviewed: Yesterday's ED visit note describing her presentation, workup and outpatient plan. ECG per my interpretation: Indication was abdominal pain. The ECG shows a normal sinus rhythm with a rate of 76. There is an old septal infarct. There is no ST elevation, no PVCs but the QTc is 407. Continuous Cardiac Monitoring per my interpretation: An order was placed for continuous cardiac monitoring. The monitor shows a rate of 88 with normal sinus rhythm. Imaging/x-ray results per my interpretation: KUB shows the NG tube to be within the stomach. Chronic Medical/Social conditions affecting care: Advanced age. Care/Management discussed with: [facility] colorectal surgery- Dr. Palm. Case management and the on-call hospitalist here at [facility] Level of care consideration(s): After review of the information above and other included data: --I believe the patient requires escalation of care to admission DISPOSITION: Admission Past Med/Surg History Problem List Hypertension, uncontrolled Intermittent small bowel obstruction due to adhesions Colicky abdominal pain (Acute) Hypertension (Acute) Nausea & vomiting (Acute) SBO (small bowel obstruction) (Acute) Acute dehydration (Acute) Anemia (Acute) Increased nausea and vomiting (Acute) Intractable nausea and vomiting (Acute) Hypokalemia (Acute) Altered bowel elimination due to intestinal ostomy (Acute) SBO (small bowel obstruction) (Acute) Menopausal and postmenopausal disorder Mass of perirectal soft tissue History of bilateral oophorectomy History of hysterectomy for benign disease Elevated troponin Chest pain (Acute) Abnormal CT of the abdomen Atrial fibrillation with RVR (Acute) HLD (hyperlipidemia) Medical History Malignant GIST (gastrointestinal stromal tumor) Paroxysmal atrial fibrillation GERD (gastroesophageal reflux disease) Surgical History H/O: hysterectomy Family History Other Cancer Diabetes Social History Smoking Status: Never smoker Hx Alcohol Use: Yes Alcohol type: wine Hx Substance Use: No Preferred Language: Serbian Communication Ability: Effective Casting Finisher Required: No Beliefs That Will Affect Care: None Current Living Situation: Spouse Feels Safe at Home: Yes Assistive Devices: None Allergies Allergies Allergy/AdvReac Type Severity Reaction Status Date / Time codeine Allergy Severe see comment Verified 03/15/25 21:57 house dust Allergy Mild Sneezing Verified 03/15/25 21:57 Home Meds Home Medications Medication Instructions Recorded Confirmed calcium 600 mg (as 1 tab PO DAILY 01/25/24 08/17/25 carbonate)-vitamin D3 10 mcg (400 unit) tablet (Calcium 600 + D(3)) cholecalciferol (vitamin D3) 25 2,000 unit PO QAM 01/25/24 08/17/25 mcg (1,000 unit) chewable tablet (Vitamin D3) famotidine 20 mg tablet 20 mg PO HS 01/25/24 08/17/25 multivitamin 1 tab PO DAILY 01/25/24 08/17/25 pantoprazole 40 mg tablet,delayed 40 mg PO DAILYBB 01/25/24 08/17/25 release rosuvastatin 5 mg tablet 5 mg PO HS 01/25/24 08/17/25 denosumab 60 mg/mL subcutaneous 0 mg subcut .[id number] 02/11/24 08/17/25 syringe (Prolia) amlodipine 2.5 mg tablet 2.5 mg PO HS 05/31/24 08/17/25 apixaban 5 mg tablet (Eliquis) 5 mg PO AMHS 08/05/25 08/17/25 imatinib 100 mg tablet 200 mg PO QA 08/16/25 08/17/25 imatinib 400 mg tablet 400 mg PO QAM 08/16/25 08/17/25 losartan 50 mg tablet 50 mg PO AMHS 08/16/25 08/17/25 metoprolol tartrate 50 mg tablet 50 mg PO AMHS 08/16/25 08/17/25 Results & Data (ED) Vital Signs Vital Signs - 24 hr 08/17/25 14:05 08/17/25 14:39 08/17/25 14:52 Temperature 36.5 C Temperature Source Oral Pulse Rate 88 79 Pulse Rate [Apical] Pulse Rate from SpO2 Sensor Pulse Rhythm [Apical] Respiratory Rate 16 20 Respiratory Effort / Characteristics Non-Labored Spontaneous Respiratory Depth Normal Blood Pressure 161/79 H 178/95 H Blood Pressure [Right Arm] Blood Pressure Mean 106 124 Blood Pressure Mean [Right Arm] Pulse Oximetry 97 Oxygen Delivery Method Room Air Sepsis Recent Fever Within 48 Hours No Sepsis New/Unexplained Change in Mental Status No Sepsis Action Taken by Nursing No Action Required 08/17/25 14:52 08/17/25 14:52 08/17/25 14:52 Temperature Temperature Source Pulse Rate Pulse Rate [Apical] Pulse Rate from SpO2 Sensor Pulse Rhythm [Apical] Respiratory Rate Respiratory Effort / Characteristics Respiratory Depth Blood Pressure 178/95 H 178/95 H 178/95 H Blood Pressure [Right Arm] Blood Pressure Mean 124 124 124 Blood Pressure Mean [Right Arm] Pulse Oximetry Oxygen Delivery Method Sepsis Recent Fever Within 48 Hours Sepsis New/Unexplained Change in Mental Status Sepsis Action Taken by Nursing 08/17/25 14:54 08/17/25 14:56 08/17/25 14:56 Temperature Temperature Source Pulse Rate 75 Pulse Rate [Apical] Pulse Rate from SpO2 Sensor 74 Pulse Rhythm [Apical] Respiratory Rate 17 Respiratory Effort / Characteristics Respiratory Depth Blood Pressure 193/93 H 193/93 H Blood Pressure [Right Arm] Blood Pressure Mean 121 121 Blood Pressure Mean [Right Arm] Pulse Oximetry 96 Oxygen Delivery Method Sepsis Recent Fever Within 48 Hours Sepsis New/Unexplained Change in Mental Status Sepsis Action Taken by Nursing 08/17/25 14:58 08/17/25 15:00 08/17/25 15:00 Temperature Temperature Source Pulse Rate Pulse Rate [Apical] 73 Pulse Rate from SpO2 Sensor Pulse Rhythm [Apical] Respiratory Rate 14 Respiratory Effort / Characteristics Respiratory Depth Blood Pressure 194/86 H 194/86 H Blood Pressure [Right Arm] 193/93 H Blood Pressure Mean 118 118 Blood Pressure Mean [Right Arm] 126 Pulse Oximetry 97 Oxygen Delivery Method Room Air Sepsis Recent Fever Within 48 Hours Sepsis New/Unexplained Change in Mental Status Sepsis Action Taken by Nursing 08/17/25 15:00 08/17/25 15:18 08/17/25 15:21 Temperature Temperature Source Pulse Rate 72 74 73 Pulse Rate [Apical] Pulse Rate from SpO2 Sensor 73 75 72 Pulse Rhythm [Apical] Respiratory Rate 16 13 16 Respiratory Effort / Characteristics Respiratory Depth Blood Pressure Blood Pressure [Right Arm] Blood Pressure Mean Blood Pressure Mean [Right Arm] Pulse Oximetry 96 95 95 Oxygen Delivery Method Sepsis Recent Fever Within 48 Hours Sepsis New/Unexplained Change in Mental Status Sepsis Action Taken by Nursing 08/17/25 15:48 08/17/25 15:58 08/17/25 16:09 Temperature Temperature Source Pulse Rate 91 H 91 H Pulse Rate [Apical] Pulse Rate from SpO2 Sensor 90 Pulse Rhythm [Apical] Respiratory Rate 18 Respiratory Effort / Characteristics Respiratory Depth Blood Pressure 187/100 H Blood Pressure [Right Arm] Blood Pressure Mean 129 Blood Pressure Mean [Right Arm] Pulse Oximetry 96 Oxygen Delivery Method Sepsis Recent Fever Within 48 Hours Sepsis New/Unexplained Change in Mental Status Sepsis Action Taken by Nursing 08/17/25 16:11 08/17/25 16:15 08/17/25 16:31 Temperature Temperature Source Pulse Rate 87 Pulse Rate [Apical] 88 Pulse Rate from SpO2 Sensor 87 Pulse Rhythm [Apical] Respiratory Rate 16 13 Respiratory Effort / Characteristics Respiratory Depth Blood Pressure 202/97 H Blood Pressure [Right Arm] 187/100 H Blood Pressure Mean 135 Blood Pressure Mean [Right Arm] 129 Pulse Oximetry 97 97 Oxygen Delivery Method Sepsis Recent Fever Within 48 Hours Sepsis New/Unexplained Change in Mental Status Sepsis Action Taken by Nursing 08/17/25 16:31 08/17/25 16:32 08/17/25 16:33 Temperature Temperature Source Pulse Rate 90 Pulse Rate [Apical] Pulse Rate from SpO2 Sensor 90 Pulse Rhythm [Apical] Respiratory Rate 14 Respiratory Effort / Characteristics Respiratory Depth Blood Pressure 202/97 H Blood Pressure [Right Arm] 202/97 H Blood Pressure Mean 135 Blood Pressure Mean [Right Arm] 132 Pulse Oximetry 96 Oxygen Delivery Method Sepsis Recent Fever Within 48 Hours Sepsis New/Unexplained Change in Mental Status Sepsis Action Taken by Nursing 08/17/25 16:37 08/17/25 16:37 08/17/25 16:42 Temperature Temperature Source Pulse Rate 87 91 H Pulse Rate [Apical] Pulse Rate from SpO2 Sensor 91 H Pulse Rhythm [Apical] Respiratory Rate 15 Respiratory Effort / Characteristics Respiratory Depth Blood Pressure 194/98 H 194/98 H Blood Pressure [Right Arm] Blood Pressure Mean 129 Blood Pressure Mean [Right Arm] Pulse Oximetry 96 Oxygen Delivery Method Sepsis Recent Fever Within 48 Hours Sepsis New/Unexplained Change in Mental Status Sepsis Action Taken by Nursing 08/17/25 16:53 08/17/25 16:53 08/17/25 16:54 Temperature Temperature Source Pulse Rate 90 Pulse Rate [Apical] 88 Pulse Rate from SpO2 Sensor 90 Pulse Rhythm [Apical] Regular Respiratory Rate 14 22 Respiratory Effort / Characteristics Non-Labored Respiratory Depth Normal Blood Pressure 182/97 H Blood Pressure [Right Arm] 182/97 H Blood Pressure Mean 120 Blood Pressure Mean [Right Arm] 125 Pulse Oximetry 96 96 Oxygen Delivery Method Sepsis Recent Fever Within 48 Hours Sepsis New/Unexplained Change in Mental Status Sepsis Action Taken by Nursing 08/17/25 17:00 08/17/25 17:24 08/17/25 17:30 Temperature Temperature Source Pulse Rate 98 H Pulse Rate [Apical] Pulse Rate from SpO2 Sensor 97 H Pulse Rhythm [Apical] Respiratory Rate 18 Respiratory Effort / Characteristics Respiratory Depth Blood Pressure 180/112 H 139/87 Blood Pressure [Right Arm] Blood Pressure Mean 138 116 Blood Pressure Mean [Right Arm] Pulse Oximetry 96 Oxygen Delivery Method Sepsis Recent Fever Within 48 Hours Sepsis New/Unexplained Change in Mental Status Sepsis Action Taken by Nursing 08/17/25 17:30 08/17/25 17:30 08/17/25 17:30 Temperature Temperature Source Pulse Rate Pulse Rate [Apical] Pulse Rate from SpO2 Sensor Pulse Rhythm [Apical] Respiratory Rate Respiratory Effort / Characteristics Respiratory Depth Blood Pressure 139/87 139/87 139/87 Blood Pressure [Right Arm] Blood Pressure Mean 116 116 116 Blood Pressure Mean [Right Arm] Pulse Oximetry Oxygen Delivery Method Sepsis Recent Fever Within 48 Hours Sepsis New/Unexplained Change in Mental Status Sepsis Action Taken by Nursing 08/17/25 17:30 08/17/25 17:42 Temperature Temperature Source Pulse Rate 100 H 95 H Pulse Rate [Apical] Pulse Rate from SpO2 Sensor 100 H 95 H Pulse Rhythm [Apical] Respiratory Rate 15 18 Respiratory Effort / Characteristics Respiratory Depth Blood Pressure Blood Pressure [Right Arm] Blood Pressure Mean Blood Pressure Mean [Right Arm] Pulse Oximetry 96 96 Oxygen Delivery Method Sepsis Recent Fever Within 48 Hours Sepsis New/Unexplained Change in Mental Status Sepsis Action Taken by Long-Term Medications Current Medication List: was personally reviewed by me Laboratory Data Attestation: I reviewed the patient's lab results. 08/17/25 14:24 08/17/25 14:24 Lab Results 08/17/25 08/17/25 Range/Units 14:24 16:30 WBC 8.86 (4.8-10.8) K/ul RBC 3.91 L (4.20-5.40) M/uL Hgb 12.4 (12.0-16.0) g/dl Hct 37.8 (37.0-47.0) % MCV 96.7 (80.0-100.0) fL MCH 31.7 (25.0-34.0) pg MCHC 32.8 (32.0-36.0) g/dL RDW Std Deviation 41.7 (36.4-46.3) fL RDW Coeff of Maggie 11.8 (11.5-14.5) % Plt Count 389 (130-400) K/uL MPV 9.2 L (9.4-12.4) fL Immature Gran % (Auto) 0.3 % Neut % (Auto) 81.0 % Lymph % (Auto) 10.3 % Gaines % (Auto) 8.0 % Eos % (Auto) 0.1 % Baso % (Auto) 0.3 % Neut # (Auto) 7.17 H (1.40-6.50) K/uL Lymph # (Auto) 0.91 L (1.20-3.40) K/uL Gaines # (Auto) 0.71 H (0.11-0.59) K/uL Eos # (Auto) 0.01 (0.00-0.50) K/uL Baso # (Auto) 0.03 (0.00-0.20) K/uL Immature Gran # (Auto) 0.03 (0.01-0.20) K/uL Sodium 138 (136-145) mmol/L Potassium 3.8 (3.5-5.1) mmol/L Chloride 97 L (98-107) mmol/L Carbon Dioxide 31 (21-32) mmol/L Anion Gap 10 (3-11) BUN 10 (6-23) mg/dl Creatinine 0.81 (0.6-1.2) mg/dl Est Cr Clr Drug Dosing 50.5 ml/min eGFR 74.72 BUN/Creatinine Ratio 12.3 (10-20) Glucose 130 H (70-99(Fasting)) mg/dl Calcium 10.7 H (8.6-10.3) mg/dl Magnesium 1.9 (1.7-2.4) mg/dl Total Bilirubin 0.7 (0.2-1.0) mg/dl AST 29 (13-39) U/L ALT 25 (7-52) U/L Alkaline Phosphatase 83 (34-104) U/L Troponin I High Sens 8.5 (0-14) pg/ml Total Protein 7.6 (6.0-8.3) gm/dl Albumin 4.2 (3.4-5.0) gm/dl Globulin 3.4 (2.5-4.0) gm/dl Albumin/Globulin Ratio 1.2 (0.9-2) Lipase 25 (11-82) U/L Urine Color Yellow Urine Appearance Clear (Clear) Urine pH >= 9.0 H (4.5-7.5) Ur Specific [place] 1.019 (1.000-1.030) Urine Protein Negative (Negative) Urine Glucose (UA) Negative (Negative) Urine Ketones Trace H (Negative) Urine Blood Negative (Negative) Urine Nitrite Negative (Negative) Urine Bilirubin Negative (Negative) Urine Urobilinogen Negative (Negative) Ur Leukocyte Esterase Trace H (Negative) Urine WBC (Auto) 0-5 (0-5) /hpf Urine RBC (Auto) 0-2 (0-2) /hpf U Hyaline Cast (Auto) 0-2 (0-2) /lpf U Epithel Cells (Auto) 0-2 (0-2) /hpf Urine Bacteria (Auto) None Seen (None Seen) Urine Comment Hepatitis C Ab Screen Negative (Negative) Administered Medications Enoxaparin Sodium (Enoxaparin Inj 60 Mg/0.6 Ml Syr) 60 mg SQ Q12H CHATA Stop: 09/16/25 20:59 Last Admin: 08/17/25 21:34 Dose: 60 mg Documented By: GT Hydralazine HCl (Hydralazine Hcl 20 Mg/Ml Vial) 5 mg IV Q6H CHATA Stop: 09/16/25 20:59 Last Admin: 08/17/25 21:36 Dose: 5 mg Documented By: GT Lactated Ringer's (Lr) 1,000 mls @ 100 mls/hr IV .Q10H CHATA Stop: 08/20/25 20:04 Last Admin: 08/17/25 20:21 Dose: 100 mls/hr Documented By: GT Famotidine (Pepcid 20mg Iv Push) 20 mg in 5 mls @ 2.5 mls/min IV Q12H CHATA Stop: 09/16/25 20:59 Last Admin: 08/17/25 21:34 Dose: 2.5 mls/min Documented By: GT Metoprolol Tartrate (Metoprolol Tartrate 1 Mg/Ml Vial) 5 mg IV Q6 CHATA Stop: 09/16/25 17:59 Last Admin: 08/17/25 20:21 Dose: 5 mg Documented By: GT Discontinued Medications Sodium Chloride (Nss) 1,000 mls @ 999 mls/hr IV .Q1H1M STA Stop: 08/17/25 15:17 Last Infusion: 08/17/25 16:00 Dose: Infused Documented By: mls Admin: 08/17/25 14:59 Dose: 999 mls/hr Documented By: mls Promethazine HCl (Phenergan) 6.25 mg in 50.25 mls @ 201 mls/hr IV NOW STA Stop: 08/17/25 14:32 Last Infusion: 08/17/25 15:16 Dose: Infused Documented By: mls Admin: 08/17/25 15:01 Dose: 201 mls/hr Documented By: [email or web address] Ioversol (Optiray 320 100ml) 94 ml IV ONCE ONE Stop: 08/17/25 15:42 Last Admin: 08/17/25 15:41 Dose: 94 ml Documented By: YUE Labetalol HCl (Labetalol Hcl Iv 5 Mg/Ml 20ml) 10 mg IV NOW STA Stop: 08/17/25 16:12 Last Admin: 08/17/25 16:37 Dose: 10 mg Documented By: [email or web address] Lidocaine HCl (Lidocaine 4% Inh Soln 4 Ml Btl) 4 ml INH NOW ONE Stop: 08/17/25 16:44 Last Admin: 08/17/25 16:54 Dose: 4 ml Documented By: mls Imaging Data Radiologist's Impression: Abdomen/Pelvis CT 08/17/25 14:23 Exam: CT abdomen/pelvis with IV contrast. Reason for exam: Nausea and vomiting. Possible bowel obstruction. Previous studies: CT abdomen/pelvis 08/05/2025 FINDINGS: The lower lung zones remain essentially clear. Liver again contains some most small sharply demarcated lesions compatible with stable hepatic cysts. Pancreas again contains a cylindrical low attenuation lesion in the mid body stable as compared to the previous study. Indicated this could be further evaluated with MRI study. Spleen size and architecture are unremarkable. Tiny renal cortical cysts without solid renal lesion or hydronephrosis at this time. There is abnormal fluid filled distention of the stomach. Abnormally dilated and fluid-filled small bowel is seen in the proximal jejunum. Maximum small bowel diameter approximately 4.0 cm. Again the colostomy noted in the left midabdomen with relatively decompressed colon. Findings again compatible with persistent small bowel obstruction. Some residual contrast material seen within the rectosigmoid consistent with contrast administered on the previous study. No pneumoperitoneum seen at this time. Urinary bladder moderately distended. IMPRESSION: Continuing evidence of small bowel obstruction, similar to the previous study of 08/05/2025. Some contrast is seen in the colon suggesting this is incomplete. Otherwise, no new acute findings is seen at this time. Electronically signed by Luis A Escalante 08-17-2025 4:17 PM KUB X-Ray 08/17/25 17:09 Exam: X-ray abdomen KUB one view Reason for exam: Confirm NG tube placement. Previous studies: CT abdomen pelvis 08/17/2025. FINDINGS: Nasogastric tube is now noted with the tip in the region of the left upper quadrant. Again markedly abnormally distended bowel loops are noted. Lower abdomen is not included. IMPRESSION: Status post placement of the nasogastric tube. Electronically signed by Luis A Escalante 08-17-2025 7:24 PM Discharge Plan Visit Data Chief Complaint: Referred by Doctor Stated Complaint: GREEN [employer]LE VOMIT DOC REFERRAL ED Provider: Zana Pelayo Discharge Problem: SBO (small bowel obstruction), Nausea & vomiting, Hypertension, Colicky abdominal pain Patient Disposition: Admitted As Inpatient Condition: Fair Discharge Instructions Interventions: ED Discharge Assessment Last Done: 08/17/25 19:32 Discharge Problem: Nausea & vomiting Qualifiers: Vomiting type: unspecified Qualified Code(s): R11.2 - Nausea with vomiting, unspecified Hypertension Qualifiers: Hypertension type: unspecified Qualified Code(s): I10 - Essential (primary) hypertension
[2025-08-17 14:36] LABS: Hematocrit (blood only) 37.8 % (37.0-47.0); Hemoglobin 12.4 g/dl (12.0-16.0); Immature Granulocytes # (auto) 0.03 K/uL (0.01-0.20); Immature Granulocytes % (auto) 0.3 %; Mean Corpuscular Hemoglobin 31.7 pg (25.0-34.0); Mean Corpuscular Volume 96.7 fL (80.0-100.0); Platelet Count 389 K/uL (130-400); RDW Standard Deviation 41.7 fL (36.4-46.3); Red Blood Count 3.91 M/uL (4.20-5.40); White Blood Count 8.86 K/ul (4.8-10.8)
[2025-08-17 14:54] LABS: Alanine Aminotransferase 25.0 U/L (7-52); Albumin Globulin Ratio 1.2 (0.9-2); Albumin Level 4.2 gm/dl (3.4-5.0); Alkaline Phosphatase 83.0 U/L (34-104); Anion Gap 10.0 (3-11); Bilirubin,Total 0.7 mg/dl (0.2-1.0); Blood Urea Nitrogen 10.0 mg/dl (6-23); Calcium 10.7 mg/dl (8.6-10.3); Carbon Dioxide 31.0 mmol/L (21-32); Chloride 97.0 mmol/L (98-107); Creatinine Clr Calc Pharmacy 50.5 ml/min; Globulin 3.4 gm/dl (2.5-4.0); Glucose 130.0 mg/dl (70-99(Fasting)); Lipase 25.0 U/L (11-82); Magnesium 1.9 mg/dl (1.7-2.4); Potassium 3.8 mmol/L (3.5-5.1); Sodium 138.0 mmol/L (136-145); Total Protein 7.6 gm/dl (6.0-8.3)
[2025-08-17] MEDS: SODIUM CHLORIDE 0.9% 1,000 ML IV STA (14:59)
[2025-08-17] MEDS: PROMETHAZINE 6.25 MG/50.25 ML BAG IV STA (15:01)
[2025-08-17] MEDS: OPTIRAY 320 100ml IV ONE (15:41)
--- NOTE | 2025-08-17 16:18 | CT Scan Report ---
Exam: CT abdomen/pelvis with IV contrast. Reason for exam: Nausea and vomiting. Possible bowel obstruction. Previous studies: CT abdomen/pelvis 08/05/2025 FINDINGS: The lower lung zones remain essentially clear. Liver again contains some most small sharply demarcated lesions compatible with stable hepatic cysts. Pancreas again contains a cylindrical low attenuation lesion in the mid body stable as compared to the previous study. Indicated this could be further evaluated with MRI study. Spleen size and architecture are unremarkable. Tiny renal cortical cysts without solid renal lesion or hydronephrosis at this time. There is abnormal fluid filled distention of the stomach. Abnormally dilated and fluid-filled small bowel is seen in the proximal jejunum. Maximum small bowel diameter approximately 4.0 cm. Again the colostomy noted in the left midabdomen with relatively decompressed colon. Findings again compatible with persistent small bowel obstruction. Some residual contrast material seen within the rectosigmoid consistent with contrast administered on the previous study. No pneumoperitoneum seen at this time. Urinary bladder moderately distended. IMPRESSION: Continuing evidence of small bowel obstruction, similar to the previous study of 08/05/2025. Some contrast is seen in the colon suggesting this is incomplete. Otherwise, no new acute findings is seen at this time. Electronically signed by Luis A Escalante 08-17-2025 4:17 PM
[2025-08-17] MEDS: LABETALOL HCL IV 5 MG/ML 20ML IV STA (16:37)
[2025-08-17] MEDS ORDERED: BENZOCAINE/TETRACAIN/BUTAM 50 APPLN/5 GM CAN EXT STA (16:43)
[2025-08-17 16:50] LABS: Appearance Urine Clear (Clear); Bacteria Urine Automated None Seen (None Seen); Cast Urine Automated 0-2 /lpf (0-2); Epithelial Cell Urine Auto 0-2 /hpf (0-2); Glucose Urine UA Negative (Negative); RBC Urine Automated 0-2 /hpf (0-2); WBC Urine Automated 0-5 /hpf (0-5)
[2025-08-17] MEDS: LIDOCAINE 4% INH SOLN 4 ML BTL INH ONE (16:54)
--- NOTE | 2025-08-17 17:53 | History & Physical Report ---
Date of Service August 17, 2025 Assessment & Plan (1) Intermittent small bowel obstruction due to adhesions: (2) Hypertension, uncontrolled: (3) Malignant GIST (gastrointestinal stromal tumor): (4) Paroxysmal atrial fibrillation: Plan Patient 75-year-old female who recently underwent partial colectomy and colostomy formation GIST rectal tumor presents with recurrent partial small bowel obstruction most likely due to adhesions. Patient is significantly ill and requires hospital level care and interventions and possibly transfer to higher level of care if surgical intervention would be required. Admit to monitored setting Continue NG tube to low intermittent suction IV fluid resuscitation Strict n.p.o. Scheduled IV Lopressor for blood pressure control and ongoing management of her paroxysmal atrial fibrillation Scheduled IV hydralazine for blood pressure control Therapeutic Lovenox for anticoagulation while Eliquis is being held Hold oral cancer meds Monitor electrolytes and renal function Recommend if patient does not respond to conservative measures within 48 hours rediscussing with patient's colorectal surgeon at [facility] Dr. Gino Palm History of Present Illness Chief Complaint: Vomiting bilious material, intractable nausea Primary Care Provider: Dimas Lopez MD Patient is a 75-year-old female who Recently was diagnosed with a GIST rectal tumor and underwent partial colectomy and ostomy creation at [facility] in mid July. Since that time she presented to [facility] on August 05, 2025 with a bowel obstruction was transferred to the emergency [place]. This was treated conservatively and she was discharged home after couple days. She was again admitted at the [facility] after she had her stitches removed from her recent surgery with a partial small bowel obstruction. Again this was treated conservatively with NG tube drainage. She improved and was discharged this past August. Patient and at bedside states that she was doing well on Monday but then started to feel more bloated and noticed decreased output in her ostomy on Monday. She came to [facility] emergency room last evening with these complaints. At that time she felt better with some fluid resuscitation and declined any further imaging. She chose to go home and see if she will continue to improve. Unfortunately she continued to have intractable nausea. She had continuous bilious emesis and return to the emergency room today. In the emergency room CT imaging was consistent with partial bowel obstruction. Emergency room physician did reach out to the patient's surgeon at [facility]. He was able to talk to Dr. Palm, her surgeon. He reviewed the case with her again. It was her recommendations that she again be treated conservatively. Did not need immediate surgical intervention and could be managed here at [facility]. The patient was referred to our service for further evaluation. Time my evaluation NG tube is already been placed. The suction canister was already filled with green bilious fluid. Her nausea had improved. She denies any fever or chills. No cough or cold symptoms. No chest pain or shortness of breath. She has had significant weight loss since her surgery. Also she has been struggling with blood pressure issues and also had diagnosis of paroxysmal atrial fibrillation for which she is on chronic anticoagulation. She denies any swelling in her hands arms legs or feet. No new joint pains. Allergies Allergy/AdvReac Type Severity Reaction Status Date / Time codeine Allergy Severe see comment Verified 03/15/25 21:57 house dust Allergy Mild Sneezing Verified 03/15/25 21:57 Home Medications Medication Instructions Recorded Confirmed Type calcium 600 mg (as 1 tab PO DAILY 01/25/24 08/17/25 History carbonate)-vitamin D3 10 mcg (400 unit) tablet (Calcium 600 + D(3)) cholecalciferol (vitamin D3) 25 2,000 unit PO QAM 01/25/24 08/17/25 History mcg (1,000 unit) chewable tablet (Vitamin D3) famotidine 20 mg tablet 20 mg PO HS 01/25/24 08/17/25 History multivitamin 1 tab PO DAILY 01/25/24 08/17/25 History pantoprazole 40 mg tablet,delayed 40 mg PO DAILYBB 01/25/24 08/17/25 History release rosuvastatin 5 mg tablet 5 mg PO HS 01/25/24 08/17/25 History denosumab 60 mg/mL subcutaneous 0 mg subcut .[id number] 02/11/24 08/17/25 History syringe (Prolia) amlodipine 2.5 mg tablet 2.5 mg PO HS 05/31/24 08/17/25 History apixaban 5 mg tablet (Eliquis) 5 mg PO [facility] 08/05/25 08/17/25 History imatinib 100 mg tablet 200 mg PO QAM 08/16/25 08/17/25 History imatinib 400 mg tablet 400 mg PO QAM 08/16/25 08/17/25 History losartan 50 mg tablet 50 mg PO [facility] 08/16/25 08/17/25 History metoprolol tartrate 50 mg tablet 50 mg PO [facility] 08/16/25 08/17/25 History Past Med/Surg History Problem List (Updated 08/17/25 @ 17:51 by Yaya Cardona DO) Hypertension, uncontrolled Intermittent small bowel obstruction due to adhesions Colicky abdominal pain (Acute) Hypertension (Acute) Nausea & vomiting (Acute) SBO (small bowel obstruction) (Acute) Acute dehydration (Acute) Anemia (Acute) Increased nausea and vomiting (Acute) Intractable nausea and vomiting (Acute) Hypokalemia (Acute) Altered bowel elimination due to intestinal ostomy (Acute) SBO (small bowel obstruction) (Acute) Menopausal and postmenopausal disorder Mass of perirectal soft tissue History of bilateral oophorectomy History of hysterectomy for benign disease Elevated troponin Chest pain (Acute) Abnormal CT of the abdomen Atrial fibrillation with RVR (Acute) HLD (hyperlipidemia) Medical History Malignant GIST (gastrointestinal stromal tumor) Paroxysmal atrial fibrillation GERD (gastroesophageal reflux disease) Surgical History H/O: hysterectomy Family History Other Cancer Diabetes Social History Smoking Status: Never smoker Hx Alcohol Use: Yes Alcohol type: wine Hx Substance Use: No Preferred Language: Tongan Communication Ability: Effective Associate Field Service Engineer Required: No Beliefs That Will Affect Care: None Current Living Situation: Spouse Feels Safe at Home: Yes Assistive Devices: None Review of Systems Review of Systems: Pertinent positive and negative review of systems as mentioned in the HPI Physical Exam Physical Exam: Constitutional: Alert, ill in appearance, nontoxic HEENT: Mucous membranes moist. Sclera clear, NG tube in place Neck: Soft, no adenopathy Lungs: Clear to auscultation, decreased, no wheezes rales or rhonchi CV: S1-S2, regular Abdomen: Absent/decreased bowel sounds, slightly distended, mild diffuse tenderness but no guarding rigidity or rebound, colostomy viable in the left lower quadrant, no significant gas or stool in the colostomy bag Extremities: No significant edema Musculoskeletal: No significant joint tenderness Neuro: No focal deficits Psych: Cooperative, normal mood Results & Data Results & Data Vital Signs (Past 12 Hours) Vital Signs Temp Pulse Pulse Resp BP BP Pulse Ox 08/17/25 16:53 88 14 182/97 H 96 08/17/25 16:37 87 194/98 H 08/17/25 16:32 202/97 H 08/17/25 16:11 88 16 187/100 H 97 08/17/25 15:58 91 H 08/17/25 14:58 73 14 193/93 H 97 08/17/25 14:05 36.5 C 88 16 161/79 H 97 O2 Del Method 08/17/25 16:53 08/17/25 16:37 08/17/25 16:32 08/17/25 16:11 08/17/25 15:58 08/17/25 14:58 Room Air 08/17/25 14:05 Room Air Diagnostic Findings Reviewed imaging, laboratory and diagnostic studies. Pertinent findings as cruz he. Personally reviewed EKG, sinus rhythm Personally reviewed KUB for NG tube placement NG tube in stomach Reviewed his CT report of the abdomen pelvis, consistent with partial small bowel obstruction WBCs 8.8 Hemoglobin 12.4 Platelets of 389 Chloride 97 rest of electrolytes stable Creatinine 0.81 Calcium slightly elevated 10.7 most likely due to some volume depletion LFTs within normal range Troponin within normal range Lipase 25 Urinalysis unremarkable for signs of infection Code Status & VTE Plan VTE Prophylaxis Plan VTE Prophylaxis will be ordered: Yes
--- NOTE | 2025-08-17 19:25 | XRay Report ---
Exam: X-ray abdomen KUB one view Reason for exam: Confirm NG tube placement. Previous studies: CT abdomen pelvis 08/17/2025. FINDINGS: Nasogastric tube is now noted with the tip in the region of the left upper quadrant. Again markedly abnormally distended bowel loops are noted. Lower abdomen is not included. IMPRESSION: Status post placement of the nasogastric tube. Electronically signed by Luis A Escalante 08-17-2025 7:24 PM
[2025-08-17] MEDS ORDERED: ENOXAPARIN 1 MG/KG SC SCH (20:05)
[2025-08-17] MEDS: METOPROLOL TARTRATE 1 MG/ML VIAL IV SCH (20:21)
[2025-08-17] MEDS: LACTATED RINGER'S 1,000 ML IV SCH (20:21)
[2025-08-17] MEDS: FAMOTIDINE 20MG IV PUSH 20 MG/5 ML SYR IV SCH (21:34)
[2025-08-17] MEDS: ENOXAPARIN INJ 60 MG/0.6 ML SYR SQ SCH (21:34)
--- NOTE | 2025-08-17 21:51 | Electrocardiogram Report ---
Test Reason : Blood Pressure : */* mmHG Vent. Rate : 76 BPM Atrial Rate : 76 BPM P-R Int : 166 ms QRS Dur : 74 ms QT Int : 362 ms P-R-T Axes : 53 63 66 degrees QTcB Int : 407 ms Normal sinus rhythm Septal infarct (cited on or before 17-May-2002) Abnormal ECG When compared with ECG of 16-Aug-2025 20:16, Borderline criteria for Inferior infarct are no longer Present Confirmed by Shon Chaudhry ([id number]) on 08/17/2025 9:51:41 PM Referred By: Gino Palm Confirmed By: Shon Chaudhry
[2025-08-18 06:27] LABS: Hematocrit (blood only) 32.1 % (37.0-47.0); Hemoglobin 11.1 g/dl (12.0-16.0); Mean Corpuscular Hemoglobin 33.3 pg (25.0-34.0); Mean Corpuscular Volume 96.4 fL (80.0-100.0); Platelet Count 302 K/uL (130-400); RDW Standard Deviation 41.4 fL (36.4-46.3); Red Blood Count 3.33 M/uL (4.20-5.40); White Blood Count 10.35 K/ul (4.8-10.8)
[2025-08-18 06:50] LABS: Anion Gap 10.0 (3-11); Blood Urea Nitrogen 9.0 mg/dl (6-23); Calcium 9.2 mg/dl (8.6-10.3); Carbon Dioxide 29.0 mmol/L (21-32); Chloride 102.0 mmol/L (98-107); Creatinine Clr Calc Pharmacy 61.1 ml/min; Glucose 92.0 mg/dl (70-99(Fasting)); Magnesium 1.8 mg/dl (1.7-2.4); Potassium 3.4 mmol/L (3.5-5.1); Sodium 141.0 mmol/L (136-145)
[2025-08-18] MEDS: POTASSIUM CHLORIDE / WTR 10 MEQ/100 ML PLCT IV SCH (08:04)
[2025-08-18] MEDS: MAGNESIUM SULFATE / D5W 1 GM/100 ML BAG IV SCH (08:04)
--- NOTE | 2025-08-18 13:37 | Hospitalist Progress Note ---
Date of Service August 18, 2025 Assessment & Plan (1) Intermittent small bowel obstruction due to adhesions: (2) Hypertension, uncontrolled: (3) Malignant GIST (gastrointestinal stromal tumor): (4) Paroxysmal atrial fibrillation: Plan Ms. Mai Quintana is a 75year old woman with a history of Afib on eliquis, SVT, CASTRO, HTN, HLD, GERD, MG/BSO, and rectal GIST s/p APR with end colostomy (07/24/25, [facility]; post op course complicated by ileus and delirium) who is admitted for decreased ostomy output and SBO. Patient recently [facility] to [facility] 08/[facility]2025 awith nausea and decreased ostomy output concern for SBO on imaging and was admitted to the colorectal surgery service. (Dr. Palm). Patient was given Gastrografin and improved, ultimately tolerating diet and discharged. Patient presented again with N/V and markedly distended bowel loops. Repeat KUB ordered for this afternoon. Patient is with NG and reports resolution of nausea/vomiting. She does endorse concern that perhaps she "rushed it" last time and is also scared to removed NG until it is "sure" she is better. Ostomy with some liquid stool and gas noted this am. #SBO #rectal GIST s/p APR with end colostomy 07/24/25, [facility] at [facility], post op course complicated by ileus and delirium NGT placed in ED, plan to clamp this afternoon IVF continued repeat KUB given complexity and patient hesitation, consult gen surg for best time to advance diet Encourage ambulation monitor electrolytes #Afib #SVT on eliquis and metorpolol contiue IV lopressor and therapeutic lovenox until able to tolerate po # CASTRO resume home cpap when NG d/c #HTN #HLD resume home regimen when able #GERD IV famotidine DVT ppx lovenox Admission and Anticipated Discharge Date Admission Date: August 17, 2025 Subjective Reports no further nausea or vomiting reports significant hesitation and concern with removing NG as she feels last time is was rushed and she does not want to return to hospital mentions that she was prescribed a medicine to promote motility but does not recall what that medicine maybe she states that her abdomen does not bother her at this time, but alludes this is how she felt the last time and was discharged shortly thereafter Physical Exam Constitutional: WD/WN, vitals as above ENMT: NGT in place, scant liquid in canister Respiratory: normal respiratory effort, lungs clear to auscultation Cardiovascular: RRR, no murmur, no edema Gastrointestinal (Abdomen): soft nontender, osotomy site with pink mucosa, bag with gas and liquid stool Results & Data Results & Data Vital Signs (Past 12 Hours) Vital Signs Temp Pulse Pulse Resp BP BP Pulse Ox 08/18/25 12:20 85 08/18/25 11:58 82 08/18/25 11:33 36.9 C 83 16 141/54 H 98 08/18/25 08:53 08/18/25 07:46 37.0 C 86 18 131/50 L 97 08/18/25 06:32 77 133/51 L 08/18/25 06:10 82 140/64 08/18/25 03:45 36.6 C 73 16 129/55 L 96 O2 Del Method 08/18/25 12:20 08/18/25 11:58 08/18/25 11:33 Room Air 08/18/25 08:53 Room Air 08/18/25 07:46 Room Air 08/18/25 06:32 08/18/25 06:10 08/18/25 03:45 Room Air Laboratory Results Short CBC 08/17/25 08/18/25 Range/Units 14:24 06:01 WBC 8.86 10.35 (4.8-10.8) K/ul Hgb 12.4 11.1 L (12.0-16.0) g/dl Hct 37.8 32.1 L (37.0-47.0) % Plt Count 389 302 (130-400) K/uL BMP 08/17/25 08/18/25 14:24 06:01 Sodium 138 141 Potassium 3.8 3.4 L Chloride 97 L 102 Carbon Dioxide 31 29 BUN 10 9 Creatinine 0.81 0.67 Glucose 130 H 92 Calcium 10.7 H 9.2 Liver Function 08/17/25 Range/Units 14:24 Total Bilirubin 0.7 (0.2-1.0) mg/dl AST 29 (13-39) U/L ALT 25 (7-52) U/L Alkaline Phosphatase 83 (34-104) U/L Albumin 4.2 (3.4-5.0) gm/dl Urine 08/17/25 Range/Units 16:30 Urine Color Yellow Urine Appearance Clear (Clear) Urine pH >= 9.0 H (4.5-7.5) Ur Specific [place] 1.019 (1.000-1.030) Urine Protein Negative (Negative) Urine Glucose (UA) Negative (Negative) Medications Administered Home Medications Medication Instructions Recorded Confirmed Last Taken calcium 600 mg (as 1 tab PO DAILY 01/25/24 08/17/25 03/15/25 carbonate)-vitamin D3 10 mcg (400 unit) tablet (Calcium 600 + D(3)) cholecalciferol (vitamin D3) 25 2,000 unit PO QAM 01/25/24 08/17/25 03/15/25 mcg (1,000 unit) chewable tablet (Vitamin D3) famotidine 20 mg tablet 20 mg PO HS 01/25/24 08/17/25 03/14/25 multivitamin 1 tab PO DAILY 01/25/24 08/17/25 03/15/25 pantoprazole 40 mg tablet,delayed 40 mg PO DAILYBB 01/25/24 08/17/25 03/15/25 release rosuvastatin 5 mg tablet 5 mg PO 01/25/24 08/17/25 03/14/25 denosumab 60 mg/mL subcutaneous 0 mg subcut .[id number] 02/11/24 08/17/25 02/20/24 syringe (Prolia) amlodipine 2.5 mg tablet 2.5 mg PO 05/31/24 08/17/25 03/15/25 apixaban 5 mg tablet (Eliquis) 5 mg PO [facility] 08/05/25 08/17/25 Unknown imatinib 100 mg tablet 200 mg PO [facility] 08/16/25 08/17/25 Unknown imatinib 400 mg tablet 400 mg PO [facility] 08/16/25 08/17/25 Unknown losartan 50 mg tablet 50 mg PO [facility] 08/16/25 08/17/25 Unknown metoprolol tartrate 50 mg tablet 50 mg PO [facility] 08/16/25 08/17/25 Unknown Active Medications Generic Name Dose Route Start Last Admin Trade Name Freq PRN Reason Stop Dose Admin Enoxaparin Sodium 60 mg 08/17/25 21:00 08/18/25 08:05 Enoxaparin Inj 60 Mg/0.6 Ml Syr SQ 09/16/25 20:59 60 mg Q12H [facility] Administration Hydralazine HCl 5 mg 08/17/25 21:00 08/18/25 08:04 Hydralazine Hcl 20 Mg/Ml Vial IV 09/16/25 20:59 5 mg Q6H [facility] Administration Lactated Ringer's 1,000 mls @ 100 mls/hr 08/17/25 20:05 08/18/25 06:11 Lr IV 08/20/25 20:04 100 mls/hr .Q10H [facility] Administration Famotidine 20 mg in 5 mls @ 2.5 mls/min 08/17/25 21:00 08/18/25 08:07 Pepcid 20mg Iv Push IV 09/16/25 20:59 2.5 mls/min Q12H [facility] Administration Metoprolol Tartrate 5 mg 08/17/25 18:00 08/18/25 11:58 Metoprolol Tartrate 1 Mg/Ml Vial IV 09/16/25 17:59 5 mg Q6 [facility]ATA Administration
--- NOTE | 2025-08-18 17:29 | XRay Report ---
2 views of the abdomen were obtained Findings: There is a nasogastric tube with its tip and side-port within the stomach There is oral contrast within the colon. There are mildly prominent air-filled loops of small bowel that could be due to ileus. No renal or ureteral calculi are seen. No foreign body is evident. No osseous abnormality is seen Impression: 1. Nasogastric tube with its tip within the stomach 2. Mild small bowel prominence that may be due to ileus. Obstruction is less likely ACT 112: Positive. There are findings on this exam that require communication between the performing entity and the patient following Patient Test Result Information Act ([place] ACT 112) guidelines. Electronically signed by Sheldon Bates 08-18-2025 5:28 PM
--- NOTE | 2025-08-18 19:39 | Surgery Consultation ---
Date of Consultation August 18, 2025 Assessment & Plan (1) Intermittent small bowel obstruction due to adhesions: The patient is a 75-year-old female who was recently diagnosed with GIST rectal tumor and has undergone partial colectomy and ostomy creating at [facility] this past July. Since then she has been hospitalized multiple times due to partial small bowel obstructions that have all been treated conservatively. The patient presented to the emergency department on 08/17/2025 due to decreased ostomy output, nausea, emesis, and abdominal bloating. Upon workup she again was found to have CT findings concerning for small bowel obstruction, her case was discussed with her surgeon at [facility] and after further review they recommended patient could be admitted here for conservative management. The surgery team was consulted and patient was seen and evaluated this evening. She is resting comfortably and is nontoxic appearing. The patient has had an NGT in place since admission and is feeling better with small amount of liquid stool and gas present in her ostomy bag. From a surgical standpoint recommend the following: -Patient is nontoxic appearing and no indication for emergent surgical intervention is indicated at this time. However, if patient would require any surgical intervention would recommend she be sent back to her surgeon (Dr. Palm at [facility]) due to recent surgery on 07/24/2025. For now, continue conservative management. -NGT in place and patient has had a small amount of liquid stool/gas output. -KUB today showing mild SB prominence that may be d/t ileus. Could consider Gastrografin challenge to further evaluate bowel gas pattern -Will discuss patient's case with attending surgeon, Dr. Page, and additional recommendations to follow. History of Present Illness Reason for Consultation: partial small bowel obstruction History of Present Illness The patient is a 75-year-old female who was recently diagnosed with GIST rectal tumor and has undergone partial colectomy and ostomy creating at [facility] this past July. To note, the patient was seen here at our facility on 08/05/25 and was found to have a small bowel obstruction and she was ultimately transferred back to [facility] due to her recent surgery. The patient states she was treated conservatively at that time with an NGT and discharged only after a few days. The patient also required additional hospitalization again for a partial bowel obstruction, again treated conservatively, and was discharged last week. The patient states over the last few days she has noticed decrease ostomy output and had started to feel more bloated. She did present to the ED because of her symptoms however after fluid resuscitation she felt better and decided to go home to try to manage her symptoms. Unfortunately the patient started with nausea, emesis, and ongoing decreased ostomy output and she presented back to the emergency room yesterday. Upon workup CT imaging was concerning for partial small bowel obstruction. Again, due to her recent medical events/surgery at [facility], her case was discussed with her surgeon there and did not feel any emergent surgical intervention was required and she could be admitted to our facility for conservative management. The patient has had an NGT in place since admission and KUB was also obtained today again showing mild small bowel prominence. Due to these findings, along with recent surgery, the general surgery team was consulted for further evaluation. The patient was seen and evaluated this evening at bedside. She is resting comfortably in bed, VSS, and is nontoxic appearing. The patient states she is feeling better than yesterday and she has noticed some increased gas and small liquid amount of stool in her ostomy bag. The patient states other than her recent surgery, she has also had a hysterectomy in the past. Allergies Allergy/AdvReac Type Severity Reaction Status Date / Time codeine Allergy Severe see comment Verified 03/15/25 21:57 house dust Allergy Mild Sneezing Verified 03/15/25 21:57 Home Medications Medication Instructions Recorded Confirmed Type calcium 600 mg (as 1 tab PO DAILY 01/25/24 08/17/25 History carbonate)-vitamin D3 10 mcg (400 unit) tablet (Calcium 600 + D(3)) cholecalciferol (vitamin D3) 25 2,000 unit PO QAM 01/25/24 08/17/25 History mcg (1,000 unit) chewable tablet (Vitamin D3) famotidine 20 mg tablet 20 mg PO HS 01/25/24 08/17/25 History multivitamin 1 tab PO DAILY 01/25/24 08/17/25 History pantoprazole 40 mg tablet,delayed 40 mg PO DAILYBB 01/25/24 08/17/25 History release rosuvastatin 5 mg tablet 5 mg PO HS 01/25/24 08/17/25 History denosumab 60 mg/mL subcutaneous 0 mg subcut .[id number] 02/11/24 08/17/25 History syringe (Prolia) amlodipine 2.5 mg tablet 2.5 mg PO HS 05/31/24 08/17/25 History apixaban 5 mg tablet (Eliquis) 5 mg PO AMHS 08/05/25 08/17/25 History imatinib 100 mg tablet 200 mg PO QAM 08/16/25 08/17/25 History imatinib 400 mg tablet 400 mg PO QAM 08/16/25 08/17/25 History losartan 50 mg tablet 50 mg PO AMHS 08/16/25 08/17/25 History metoprolol tartrate 50 mg tablet 50 mg PO AMHS 08/16/25 08/17/25 History Patient History Medical History Malignant GIST (gastrointestinal stromal tumor) Paroxysmal atrial fibrillation GERD (gastroesophageal reflux disease) Surgical History H/O: hysterectomy Family History Other Cancer Diabetes Social History Smoking Status: Never smoker Hx Alcohol Use: Yes Alcohol type: wine Hx Substance Use: No Preferred Language: Mexican Communication Ability: Effective Supply Controller Required: No Beliefs That Will Affect Care: None Current Living Situation: Spouse Feels Safe at Home: Yes Assistive Devices: CPAP and Walker Review of Systems Constitutional: no fever, no chills and no weakness Respiratory: no cough, no chest congestion and no wheezing Cardiovascular: no chest pain, no palpitations and no syncope Gastrointestinal: as per Subjective / HPI, + bloating, + nausea and + vomiting Genitourinary: no difficulty urinating, no urinary urgency and no hematuria Physical Exam Constitutional: WD/WN, vitals as above Respiratory: normal respiratory effort, lungs clear to auscultation Cardiovascular: Rate/Rhythm: regular rate Gastrointestinal (Abdomen): Abdomen soft, nondistended, nontender to palpation. NGT in place to suction +Ostomy to left side of abdomen, viable, small amount of liquid stool and gas in bag Skin: no rashes, warm and dry Results & Data Vital Signs (Past 12 Hours) Vital Signs Temp Pulse Pulse Resp BP Pulse Ox O2 Del Method 08/18/25 18:49 37.1 C 91 H 18 141/70 H 95 Room Air 08/18/25 17:25 85 08/18/25 17:10 87 08/18/25 15:09 36.3 C L 93 H 18 120/56 L 96 Room Air 08/18/25 12:20 85 08/18/25 11:58 82 08/18/25 11:33 36.9 C 83 16 141/54 H 98 Room Air 08/18/25 08:53 Room Air 08/18/25 07:46 37.0 C 86 18 131/50 L 97 Room Air Diagnostic Findings Exam: CT abdomen/pelvis with IV contrast. Reason for exam: Nausea and vomiting. Possible bowel obstruction. Previous studies: CT abdomen/pelvis 08/05/2025 FINDINGS: The lower lung zones remain essentially clear. Liver again contains some most small sharply demarcated lesions compatible with stable hepatic cysts. Pancreas again contains a cylindrical low attenuation lesion in the mid body stable as compared to the previous study. Indicated this could be further evaluated with MRI study. Spleen size and architecture are unremarkable. Tiny renal cortical cysts without solid renal lesion or hydronephrosis at this time. There is abnormal fluid filled distention of the stomach. Abnormally dilated and fluid-filled small bowel is seen in the proximal jejunum. Maximum small bowel diameter approximately 4.0 cm. Again the colostomy noted in the left midabdomen with relatively decompressed colon. Findings again compatible with persistent small bowel obstruction. Some residual contrast material seen within the rectosigmoid consistent with contrast administered on the previous study. No pneumoperitoneum seen at this time. Urinary bladder moderately distended. IMPRESSION: Continuing evidence of small bowel obstruction, similar to the previous study of 08/05/2025. Some contrast is seen in the colon suggesting this is incomplete. Otherwise, no new acute findings is seen at this time. Electronically signed by Luis A Escalante 08-17-2025 4:17 PM KUB: 2 views of the abdomen were obtained Findings: There is a nasogastric tube with its tip and side-port within the stomach There is oral contrast within the colon. There are mildly prominent air-filled loops of small bowel that could be due to ileus. No renal or ureteral calculi are seen. No foreign body is evident. No osseous abnormality is seen Impression: 1. Nasogastric tube with its tip within the stomach 2. Mild small bowel prominence that may be due to ileus. Obstruction is less likely PG Care Time/CCT Total # of Minutes Spent Total Time Spent with Patient: Total time spent is greater than 50% in coordination of care (as documented) at patient's floor/unit and/or counseling patient: [place] [address] INT INP/OBS CARE 1/40MIN Patient Type New History Problem Focused Exam Problem Focused Medical Decision Making Straight Forward Diagnoses Intermittent small bowel obstruction due to adhesions K56.50
[2025-08-19 07:46] LABS: Anion Gap 11.0 (3-11); Blood Urea Nitrogen 8.0 mg/dl (6-23); Calcium 8.9 mg/dl (8.6-10.3); Carbon Dioxide 25.0 mmol/L (21-32); Chloride 103.0 mmol/L (98-107); Creatinine Clr Calc Pharmacy 63.2 ml/min; Glucose 86.0 mg/dl (70-99(Fasting)); Magnesium 2.0 mg/dl (1.7-2.4); Potassium 3.4 mmol/L (3.5-5.1); Sodium 139.0 mmol/L (136-145)
[2025-08-19] MEDS: POTASSIUM CHLORIDE / WTR 10 MEQ/100 ML PLCT IV SCH (09:10)
[2025-08-19] MEDS: LOSARTAN POTASSIUM 50 MG TAB PO SCH (10:30)
[2025-08-19] MEDS: APIXABAN 5 MG TABLET PO SCH (10:31)
[2025-08-19] MEDS: METOPROLOL TARTRATE 50 MG TAB PO SCH (10:31)
--- NOTE | 2025-08-19 11:43 | Hospitalist Progress Note ---
Date of Service August 19, 2025 Assessment & Plan (1) Intermittent small bowel obstruction due to adhesions: (2) Hypertension, uncontrolled: (3) Malignant GIST (gastrointestinal stromal tumor): (4) Paroxysmal atrial fibrillation: Plan Patient with recurrent small bowel obstruction status post partial colectomy and ostomy formation. Clinically patient's bowel obstruction has resolved and improved. Patient now with gas and stool in her ostomy bag NG tube has been clamped since yesterday Advance to liquid diet Communication with surgical team, can remove NG tube Slowly advance diet over the next 24 hours Restart oral medications Replace potassium Monitor electrolytes and renal function Admission and Anticipated Discharge Date Admission Date: August 17, 2025 Subjective Patient is feeling significantly improved. Have been having symptomatic gas in colostomy bag as well as liquid stool. Physical Exam Physical Exam: Constitutional: Alert, nontoxic HEENT: Mucous membranes moist. NG tube in place Lungs: Clear to auscultation, decreased, no wheezes rales or rhonchi CV: S1-S2, regular Abdomen: Soft, nontender, nondistended, normal active bowel sounds, liquid stool in ostomy bag, ostomy pink and viable Extremities: No significant edema Neuro: No focal deficits Psych: Cooperative, normal mood Results & Data Results & Data Vital Signs (Past 12 Hours) Vital Signs Temp Pulse Pulse Resp BP BP Pulse Ox 08/19/25 11:11 37.5 C 99 H 18 117/62 97 08/19/25 08:42 86 08/19/25 08:42 08/19/25 07:25 36.6 C 71 16 134/67 99 08/19/25 05:51 83 149/69 H 08/19/25 05:32 95 H 153/56 H 08/19/25 05:31 95 H 153/56 H 08/19/25 02:37 36.9 C 86 18 162/71 H 95 O2 Del Method 08/19/25 11:11 Room Air 08/19/25 08:42 08/19/25 08:42 Room Air 08/19/25 07:25 Room Air 08/19/25 05:51 08/19/25 05:32 08/19/25 05:31 08/19/25 02:37 Room Air Diagnostic Findings Reviewed imaging, laboratory and diagnostic studies. Pertinent findings as below. Potassium 3.4 Creatinine 0.64
--- NOTE | 2025-08-19 12:06 | Surgery Progress Note ---
Date of Service August 19, 2025 Assessment & Plan (1) SBO (small bowel obstruction): Plan: Start clear liquids Continue nonoperative management for ileus versus small bowel obstruction Admission and Anticipated Discharge Date Admission Date: August 17, 2025 Subjective Patient seen and examined. She has more ostomy output today. Denies any abdominal pain. Denies any nausea or vomiting with NG tube in place. Review of Systems Constitutional: no fever and no chills Respiratory: no cough and no dyspnea Cardiovascular: no chest pain and no dyspnea on exertion Gastrointestinal: no abdominal pain, no nausea and no vomiting Integumentary: no non-healing lesions and no skin ulcer Psychiatric: no behavioral changes and no depression Physical Exam Constitutional: WD/WN, vitals as above Eyes: PERRL, conjunctivae normal, anicteric sclerae Respiratory: normal respiratory effort, lungs clear to auscultation Cardiovascular: RRR, no murmur, no edema Gastrointestinal (Abdomen): Soft, nontender, mild distention left lower quadrant ostomy with some stool in the bag Results & Data Vital Signs (Past 12 Hours) Vital Signs Temp Pulse Pulse Resp BP BP Pulse Ox 08/19/25 11:11 37.5 C 99 H 18 117/62 97 08/19/25 08:42 86 08/19/25 08:42 08/19/25 07:25 36.6 C 71 16 134/67 99 08/19/25 05:51 83 149/69 H 08/19/25 05:32 95 H 153/56 H 08/19/25 05:31 95 H 153/56 H 08/19/25 02:37 36.9 C 86 18 162/71 H 95 O2 Del Method 08/19/25 11:11 Room Air 08/19/25 08:42 08/19/25 08:42 Room Air 08/19/25 07:25 Room Air 08/19/25 05:51 08/19/25 05:32 08/19/25 05:31 08/19/25 02:37 Room Air PG Care Time/CCT Total # of Minutes Spent Total Time Spent with Patient: Total time spent is greater than 50% in coordination of care (as documented) at patient's floor/unit and/or counseling patient: Coding Level of Care Code 91785 SUB INP/OBS CARE 11/30MIN Diagnoses SBO (small bowel obstruction) K56.609
[2025-08-19] MEDS ORDERED: NSS + 20MEQ KCL 20 MEQ/1,000 ML BAG IV SCH (13:00)
[2025-08-19] MEDS: FAMOTIDINE 20 MG TAB PO SCH (20:11)
[2025-08-20 08:21] LABS: Anion Gap 5.0 (3-11); Calcium 8.2 mg/dl (8.6-10.3); Carbon Dioxide 27.0 mmol/L (21-32); Chloride 108.0 mmol/L (98-107); Magnesium 1.8 mg/dl (1.7-2.4); Potassium 3.7 mmol/L (3.5-5.1); Sodium 140.0 mmol/L (136-145)
[2025-08-20 08:29] LABS: Blood Urea Nitrogen 6.0 mg/dl (6-23); Creatinine Clr Calc Pharmacy 77.8 ml/min; Glucose 100.0 mg/dl (70-99(Fasting))
--- NOTE | 2025-08-20 10:29 | Surgery Progress Note ---
Date of Service August 20, 2025 Assessment & Plan (1) SBO (small bowel obstruction): Plan: Advance to full liquids Continue nonoperative management for ileus versus small bowel obstruction Admission and Anticipated Discharge Date Admission Date: August 17, 2025 Subjective Patient seen and examined. Feels improved. Denies abdominal pain. Ostomy Is working more. Review of Systems Constitutional: no fever and no chills Respiratory: no cough and no dyspnea Cardiovascular: no chest pain and no dyspnea on exertion Gastrointestinal: no abdominal pain, no nausea and no vomiting Integumentary: no non-healing lesions and no skin ulcer Psychiatric: no behavioral changes and no depression Physical Exam Constitutional: WD/WN, vitals as above Eyes: PERRL, conjunctivae normal, anicteric sclerae Respiratory: normal respiratory effort, lungs clear to auscultation Cardiovascular: RRR, no murmur, no edema Gastrointestinal (Abdomen): Soft, nontender, mild distention left lower quadrant ostomy with some stool in the bag Results & Data Vital Signs (Past 12 Hours) Vital Signs Temp Pulse Pulse Resp BP Pulse Ox O2 Del Method 08/20/25 08:47 90 08/20/25 07:44 37.3 C 83 19 162/76 H 96 Room Air 08/20/25 02:45 36.7 C 77 18 135/63 95 Room Air 08/19/25 22:40 36.6 C 72 18 143/56 H 95 Room Air 08/19/25 22:30 69 PG Care Time/CCT Total # of Minutes Spent Total Time Spent with Patient: Total time spent is greater than 50% in coordination of care (as documented) at patient's floor/unit and/or counseling patient: Coding Level of Care Code 27051 SUB INP/OBS CARE 11/30MIN Diagnoses SBO (small bowel obstruction) K56.609
--- NOTE | 2025-08-20 14:21 | Hospitalist Progress Note ---
Date of Service August 20, 2025 Assessment & Plan (1) Intermittent small bowel obstruction due to adhesions: (2) Hypertension, uncontrolled: (3) Malignant GIST (gastrointestinal stromal tumor): (4) Paroxysmal atrial fibrillation: Plan Patient with recurrent small bowel obstruction status post partial colectomy and ostomy formation. Clinically patient's bowel obstruction has resolved and improved. Patient now with gas and stool in her ostomy bag NG tube has been clamped since yesterday Advance to liquid diet Communication with surgical team, can remove NG tube Slowly advance diet over the next 24 hours Restart oral medications Replace potassium Monitor electrolytes and renal function 08/20 doing well continue full liquids per Gen Surg monitor closely Alexandr Hurley MD Admission and Anticipated Discharge Date Admission Date: August 17, 2025 Subjective seen resting in chair, comfortable states she feels improved overall tolerating clear liquids well no abdominal pain, nausea (+) loose, non bloody stools per ostomy site Review of Systems Review of Systems: all noted and negative except for above Physical Exam Physical Exam: General- oriented x 3, not in distress, speaks in sentences with no effort or accessory muscle use Eyes- anicteric Neck- no JVD Lungs- clear breath sounds bilaterally, no rales/wheezes Heart- normal rate, regular rhythm; no murmurs Abdomen- normal bowel sounds, nondistended, soft, nontender (+) colostomy: loose, nonbloody stools Extremities- no pretibial edema, no calf tenderness Neuro- alert, oriented x 3; no gross focal neurologic deficits Skin- warm & dry Results & Data Results & Data Vital Signs (Past 12 Hours) Vital Signs Temp Pulse Pulse Resp BP Pulse Ox O2 Del Method 08/20/25 11:21 36.8 C 66 18 144/73 H 99 Room Air 08/20/25 08:47 90 08/20/25 07:44 37.3 C 83 19 162/76 H 96 Room Air 08/20/25 02:45 36.7 C 77 18 135/63 95 Room Air all noted and reviewed including below
[2025-08-20] MEDS: ONDANSETRON INJ 2 MG/ML 2 ML VIAL IV PRN (19:15)
--- NOTE | 2025-08-21 01:49 | Communication Note ---
Date of Service: August 21, 2025 Patient with mid abdominal pain associated with nausea/dry heaving episodes overnight as per RN Patient diet advanced to liquids yesterday as per RN. No obvious bleed. AP SBO N.p.o. Repeat KUB Hold Eliquis for now
[2025-08-21] MEDS ORDERED: ACETAMINOPHEN 1,000 MG/100 ML VIAL IV PRN (01:51)
[2025-08-21] MEDS: ACETAMINOPHEN 1,000 MG/100 ML VIAL IV STA (02:09)
[2025-08-21] MEDS: PROMETHAZINE 6.25 MG/50.25 ML BAG IV PRN (04:38)
--- NOTE | 2025-08-21 07:23 | XRay Report ---
EXAM: XR KUB/Abdomen 1 view CLINICAL HISTORY: abd pain nv TECHNIQUE: X-ray images of the abdomen were obtained in supine and upright positions. COMPARISON: 15:04:00 [facility] [facility]. FINDINGS: Gas Pattern: Contrast noted in the large bowel. Gas pattern within the abdomen is normal. No evidence of bowel obstruction or distention. Soft Tissues: Soft tissues of the abdomen appear normal without evidence of masses or calcifications. Liver, spleen, and kidneys are of normal size and position. IMPRESSION: Normal abdominal X-ray. No acute abnormalities identified. No other new interval abnormality since prior study. Electronically signed by Abel Magdaleno 08-21-2025 07:21 AM
[2025-08-21 07:58] LABS: Hematocrit (blood only) 33.6 % (37.0-47.0); Hemoglobin 11.3 g/dl (12.0-16.0); Mean Corpuscular Hemoglobin 32.5 pg (25.0-34.0); Mean Corpuscular Volume 96.6 fL (80.0-100.0); Platelet Count 263 K/uL (130-400); RDW Standard Deviation 41.0 fL (36.4-46.3); Red Blood Count 3.48 M/uL (4.20-5.40); White Blood Count 9.39 K/ul (4.8-10.8)
[2025-08-21 10:15] LABS: Anion Gap 9.0 (3-11); Blood Urea Nitrogen 9.0 mg/dl (6-23); Calcium 9.1 mg/dl (8.6-10.3); Carbon Dioxide 26.0 mmol/L (21-32); Chloride 104.0 mmol/L (98-107); Creatinine Clr Calc Pharmacy 61.3 ml/min; Glucose 110.0 mg/dl (70-99(Fasting)); Magnesium 1.8 mg/dl (1.7-2.4); Potassium 3.4 mmol/L (3.5-5.1); Sodium 139.0 mmol/L (136-145)
--- NOTE | 2025-08-21 10:21 | Surgery Progress Note ---
Date of Service August 21, 2025 Assessment & Plan (1) SBO (small bowel obstruction): Plan: She does not seem to have an obstruction and unsure why she is so nauseated Would recommend to try to slowly advance her diet as she does If she is unable to tolerate her diet, would recommend transfer back to [facility] to her operative team for further evaluation Surgery will sign off at this time, please call with any questions or concerns Admission and Anticipated Discharge Date Admission Date: August 17, 2025 Subjective Patient seen and examined. Had some nausea and abdominal pain overnight. Ostomy is functioning. Review of Systems Constitutional: no fever and no chills Respiratory: no cough and no dyspnea Cardiovascular: no chest pain and no dyspnea on exertion Gastrointestinal: + abdominal pain and + nausea; no vomiti ng Integumentary: no non-healing lesions and no skin ulcer Psychiatric: no behavioral changes and no depression Physical Exam Constitutional: WD/WN, vitals as above Eyes: PERRL, conjunctivae normal, anicteric sclerae Respiratory: normal respiratory effort, lungs clear to auscultation Cardiovascular: RRR, no murmur, no edema Gastrointestinal (Abdomen): Soft, nontender, nondistended left lower quadrant ostomy with some stool in the bag Results & Data Vital Signs (Past 12 Hours) Vital Signs Temp Pulse Resp BP BP Pulse Ox O2 Del Method 08/21/25 07:48 179/75 H 08/21/25 07:47 37.0 C 76 19 179/82 H 97 Room Air 08/21/25 03:51 36.8 C 86 16 142/76 H 98 Room Air 08/20/25 23:31 CPAP 08/20/25 22:31 36.3 C L 83 16 154/74 H 96 Room Air PG Care Time/CCT Total # of Minutes Spent Total Time Spent with Patient: Total time spent is greater than 50% in coordination of care (as documented) at patient's floor/unit and/or counseling patient: Coding Level of Care Code 29360 SUB INP/OBS CARE 11/30MIN Diagnoses SBO (small bowel obstruction) K56.609
[2025-08-21] MEDS: NSS + 20MEQ KCL 20 MEQ/1,000 ML BAG IV SCH (10:30)
[2025-08-21] MEDS: PROMETHAZINE 12.5 MG/50.5 ML BAG IV STA (10:38)
--- NOTE | 2025-08-21 15:35 | Hospitalist Progress Note ---
Date of Service August 21, 2025 Assessment & Plan (1) Intermittent small bowel obstruction due to adhesions: (2) Hypertension, uncontrolled: (3) Malignant GIST (gastrointestinal stromal tumor): (4) Paroxysmal atrial fibrillation: Plan Patient with recurrent small bowel obstruction status post partial colectomy and ostomy formation. Clinically patient's bowel obstruction has resolved and improved. Patient now with gas and stool in her ostomy bag NG tube has been clamped since yesterday Advance to liquid diet Communication with surgical team, can remove NG tube Slowly advance diet over the next 24 hours Restart oral medications Replace potassium Monitor electrolytes and renal function 08/20 doing well continue full liquids per Gen Surg monitor closely 08/21 (+) nausea KUB no obstruction start Protonix IV, add PRN Phenergan NPO until nausea resolves IV fluids Alexandr Hurley MD Admission and Anticipated Discharge Date Admission Date: August 17, 2025 Subjective events overnight noted seen resting in bed, uncomfortable due to nausea denies abdominal pain no fever/chills no other symptoms Review of Systems Review of Systems: all noted and negative except for above Physical Exam Physical Exam: General- oriented x 3, not in distress, speaks in sentences with no effort or accessory muscle use Eyes- anicteric Neck- no JVD Lungs- clear breath sounds bilaterally, no rales/wheezes Heart- normal rate, regular rhythm; no murmurs Abdomen- normal bowel sounds, nondistended, soft, nontender (+) colostomy: scant brown stools Extremities- no pretibial edema, no calf tenderness Neuro- alert, oriented x 3; no gross focal neurologic deficits Skin- warm & dry Results & Data Results & Data Vital Signs (Past 12 Hours) Vital Signs Temp Pulse Resp BP BP Pulse Ox O2 Del Method 08/21/25 15:32 37.1 C 89 22 172/78 H 98 Room Air 08/21/25 11:10 37.1 C 78 21 185/62 H 95 Room Air 08/21/25 07:48 179/75 H 08/21/25 07:47 37.0 C 76 19 179/82 H 97 Room Air 08/21/25 03:51 36.8 C 86 16 142/76 H 98 Room Air all noted and reviewed including below
[2025-08-21] MEDS: PANTOprazole 40 MG/10 ML SYR IV ONE (16:09)
[2025-08-21] MEDS: POTASSIUM CHLORIDE / WTR 10 MEQ/100 ML PLCT IV SCH (18:35)
--- NOTE | 2025-08-21 18:56 | CT Scan Report ---
CT ABDOMEN and PELVIS without INTRAVENOUS CONTRAST HISTORY: Abdominal pain TECHNIQUE: CT abdomen and pelvis without contrast. IV CONTRAST: None ENTERIC CONTRAST: None. COMPARISON: CT abdomen and pelvis August 18, 2025. FINDINGS: LOWER CHEST: Unchanged medical the cardiac enlargement. Mild coronary calcifications. Mild pericardial fluid LIVER: Scattered subcentimeter hypodensities are too small to characterize but likely represent cysts or hemangiomas. GALLBLADDER/BILIARY: Unremarkable gallbladder. No abnormal biliary dilatation. SPLEEN: Unremarkable. PANCREAS: Redemonstrated cystic structure in the body of the pancreas that may represent an IPMN. ADRENALS: Unremarkable. KIDNEYS: Unremarkable. No stones or hydronephrosis identified. PERITONEUM/RETROPERITONEUM. No lymphadenopathy by size criteria. No aortic aneurysm. GASTROINTESTINAL: Evidence of persistent small bowel obstruction. Compared to the prior CT, the distention of the stomach and the loops of small bowel appears to have mildly increased. Again, there is a transition point suggested in the left lower quadrant of the abdomen just anteriorly to the left psoas muscle (series 2, image 43). Also as before, enteric contrast seen within the large bowel. Redemonstrated postsurgical changes of distal colectomy with colostomy in the left lower quadrant URINARY BLADDER: Unremarkable ABDOMINAL WALL: Postsurgical changes at the midline and colostomy in the left lower quadrant REPRODUCTIVE: Status post hysterectomy BONES: No acute findings. IMPRESSION: Ongoing small bowel obstruction. Compared to the prior CT from August 17, 2025, the distention of the stomach and the loops of small bowel appears to have mildly increased suggesting worsening obstruction. Electronically signed by Zeferino Brar 08-21-2025 6:56 PM
[2025-08-21] MEDS: PROMETHAZINE 12.5 MG/50.5 ML BAG IV PRN (19:49)
[2025-08-21] MEDS: METOPROLOL TARTRATE 1 MG/ML VIAL IV STA (23:21)
[2025-08-22] MEDS: ACETAMINOPHEN 1,000 MG/100 ML VIAL IV STA (02:26)
[2025-08-22] MEDS: LIDOCAINE 2% JELLY 5 ML TUBE EXT STA (02:26)
[2025-08-22] MEDS: CHLORASEPTIC (PHENOL) 1.4% SOLN 180 ML BTL MT PRN (06:23)
--- NOTE | 2025-08-22 07:48 | Surgery Progress Note ---
Date of Service August 22, 2025 Assessment & Plan (1) SBO (small bowel obstruction): Plan: At this point she has been here for a few days has not resolved her obstruction Recommend contacting her surgeon at [facility] for possible transfer Keep n.p.o. and NG tube Admission and Anticipated Discharge Date Admission Date: August 17, 2025 Subjective Patient seen and examined. Had an NG tube placed overnight. Feels better after Placement. Less ostomy output. Has minimal abdominal pain. Vital signs stable. Review of Systems Constitutional: no fever and no chills Respiratory: no cough and no dyspnea Cardiovascular: no chest pain and no dyspnea on exertion Gastrointestinal: + abdominal pain, + nausea and + vomitin g Integumentary: no non-healing lesions and no skin ulcer Psychiatric: no behavioral changes and no depression Physical Exam Constitutional: WD/WN, vitals as above Eyes: PERRL, conjunctivae normal, anicteric sclerae Respiratory: normal respiratory effort, lungs clear to auscultation Cardiovascular: RRR, no murmur, no edema Gastrointestinal (Abdomen): Soft, nontender, nondistended left lower quadrant ostomy with minimal stool in the bag Results & Data Vital Signs (Past 12 Hours) Vital Signs Temp Pulse Pulse Resp BP BP BP 08/22/25 04:13 36.8 C 86 18 156/75 H 08/22/25 02:30 90 150/72 H 08/22/25 02:02 93 H 164/77 H 08/22/25 01:15 37.4 C 94 H 181/86 H 08/22/25 00:36 91 H 166/88 H 08/21/25 23:36 94 H 151/87 H 08/21/25 23:21 90 181/84 H 08/21/25 23:11 37.3 C 90 20 181/84 H 08/21/25 21:43 80 08/21/25 20:00 08/21/25 19:53 37 C 88 20 176/84 H Pulse Ox O2 Del Method 08/22/25 04:13 96 Room Air 08/22/25 02:30 08/22/25 02:02 08/22/25 01:15 08/22/25 00:36 08/21/25 23:36 08/21/25 23:21 08/21/25 23:11 96 Room Air 08/21/25 21:43 08/21/25 20:00 Room Air 08/21/25 19:53 96 Room Air PG Care Time/CCT Total # of Minutes Spent Total Time Spent with Patient: Total time spent is greater than 50% in coordination of care (as documented) at patient's floor/unit and/or counseling patient: Coding Level of Care Code 94195 SUB INP/OBS CARE 11/30MIN Diagnoses SBO (small bowel obstruction) K56.609
[2025-08-22 08:22] VITALS: RESP 16; O2SAT 97
[2025-08-22] MEDS: PANTOprazole 40 MG/10 ML SYR IV SCH (09:11)
--- NOTE | 2025-08-22 11:27 | Discharge Summary ---
Discharge Summary Date of Service August 22, 2025 Principal Dx & Hospital Course #1 = Principal Diagnosis (1) Intermittent small bowel obstruction due to adhesions: (2) Hypertension, uncontrolled: (3) Malignant GIST (gastrointestinal stromal tumor): (4) Paroxysmal atrial fibrillation: Plan Patient with recurrent small bowel obstruction status post partial colectomy and ostomy formation. Clinically patient's bowel obstruction has resolved and improved. Patient now with gas and stool in her ostomy bag NG tube has been clamped since yesterday Advance to liquid diet Communication with surgical team, can remove NG tube Slowly advance diet over the next 24 hours Restart oral medications Replace potassium Monitor electrolytes and renal function 08/20 doing well continue full liquids per Gen Surg monitor closely 08/21 (+) nausea KUB no obstruction start Protonix IV, add PRN Phenergan NPO until nausea resolves IV fluids 08/22 Unfortunately, patient's nausea and vomiting persisted overnight NG tube replaced Evaluated by general surgery this morning, recommend to transfer back to [facility] for further evaluation by patient's original surgical service N.p.o. for now, convert metoprolol to IV, hydralazine IV for blood pressure control as well Replace potassium Gentle IV fluids As needed antiemetics Discussed with patient and her Reyna, agreeable to be transferred to [facility] Discussed with Dr. aPlm, colorectal surgeon from [facility], she kindly accepted the patient Incidental CT abd findings: Unchanged medical the cardiac enlargement. Mild coronary calcifications. Mild pericardial fluid Redemonstrated cystic structure in the body of the pancreas that may represent an IPMN. Further work up, management, and ff up as outpatient Alexandr Hurley MD Notes For Next Care Provider Medication Changes From Visit As per medical reconciliation section Admission HPI Per Admitting Provider Patient is a 75-year-old female who Recently was diagnosed with a GIST rectal tumor and underwent partial colectomy and ostomy creation at [facility] in mid July. Since that time she presented to [facility] on August 05, 2025 with a bowel obstruction was transferred to the emergency [place]. This was treated conservatively and she was discharged home after couple days. She was again admitted at the [facility] after she had her stitches removed from her recent surgery with a partial small bowel obstruction. Again this was treated conservatively with NG tube drainage. She improved and was discharged this past , August 14, 2025. Patient and at bedside states that she was doing well on Monday but then started to feel more bloated and noticed decreased output in her ostomy on Monday. She came to [facility] emergency room last evening with these complaints. At that time she felt better with some fluid resuscitation and declined any further imaging. She chose to go home and see if she will continue to improve. Unf ortunately she continued to have intractable nausea. She had continuous bilious emesis and return to the emergency room today. In the emergency room CT imaging was consistent with partial bowel obstruction. Emergency room physician did reach out to the patient's surgeon at [facility]. He was able to talk to Dr. Palm, her surgeon. He reviewed the case with her again. It was her recommendations that she again be treated conservatively. Did not need immediate surgical intervention and could be managed here at [facility]. The patient was referred to our service for further evaluation. Time my evaluation NG tube is already been placed. The suction canister was already filled with green bilious fluid. Her nausea had improved. She denies any fever or chills. No cough or cold symptoms. No chest pain or shortness of breath. She has had significant weight loss since her surgery. Also she has been struggling with blood pressure issues and also had diagnosis of paroxysmal atrial fibrillation for which she is on chronic anticoagulation. She denies any swelling in her hands arms legs or feet. No new joint pains. Admission Exam Per Admitting Provider Constitutional: Alert, ill in appearance, nontoxic HEENT: Mucous membranes moist. Sclera clear, NG tube in place Neck: Soft, no adenopathy Lungs: Clear to auscultation, decreased, no wheezes rales or rhonchi CV: S1-S2, regular Abdomen: Absent/decreased bowel sounds, slightly distended, mild diffuse tenderness but no guarding rigidity or rebound, colostomy viable in the left lower quadrant, no significant gas or stool in the colostomy bag Extremities: No significant edema Musculoskeletal: No significant joint tenderness Neuro: No focal deficits Psych: Cooperative, normal mood Discharge Exam General- oriented x 3, not in distress, speaks in sentences with no effort or a ccessory muscle use Eyes- anicteric Neck- no JVD NG tube in place with bilious output Lungs- clear breath sounds bilaterally, no rales/wheezes Heart- normal rate, regular rhythm; no murmurs Abdomen- hypoactive bowel sounds, nondistended, soft, nontender colostomy: Positive bilious output Extremities- no pretibial edema, no calf tenderness Neuro- alert, oriented x 3; no gross focal neurologic deficits Skin- warm & dry Updated Medication List Medication Instructions Recorded Confirmed Type calcium 600 mg (as 1 tab PO DAILY 01/25/24 08/17/25 History carbonate)-vitamin D3 10 mcg (400 unit) tablet (Calcium 600 + D(3)) cholecalciferol (vitamin D3) 25 2,000 unit PO QAM 01/25/24 08/17/25 History mcg (1,000 unit) chewable tablet (Vitamin D3) famotidine 20 mg tablet 20 mg PO HS 01/25/24 08/17/25 History multivitamin 1 tab PO DAILY 01/25/24 08/17/25 History pantoprazole 40 mg tablet,delayed 40 mg PO DAILYBB 01/25/24 08/17/25 History release rosuvastatin 5 mg tablet 5 mg PO HS 01/25/24 08/17/25 History denosumab 60 mg/mL subcutaneous 0 mg subcut .[id number] 02/11/24 08/17/25 History syringe (Prolia) amlodipine 2.5 mg tablet 2.5 mg PO HS 05/31/24 08/17/25 History apixaban 5 mg tablet (Eliquis) 5 mg PO AMHS 08/05/25 08/17/25 History imatinib 100 mg tablet 200 mg PO QAM 08/16/25 08/17/25 History imatinib 400 mg tablet 400 mg PO QAM 08/16/25 08/17/25 History losartan 50 mg tablet 50 mg PO AMHS 08/16/25 08/17/25 History metoprolol tartrate 50 mg tablet 50 mg PO AMHS 08/16/25 08/17/25 History Hospital Stay Data Consultations 08/17/25 17:32 ED Decision to Admit Stat 08/18/25 13:44 Consult General Surgery Routine Diagnostic Imagining Performed Laboratory Results WBC 9.39 K/ul (4.8-10.8) 08/21/25 07:34 RBC 3.48 M/uL (4.20-5.40) L 08/21/25 07:34 Hgb 11.3 g/dl (12.0-16.0) L 08/21/25 07:34 Hct 33.6 % (37.0-47.0) L 08/21/25 07:34 MCV 96.6 fL (80.0-100.0) 08/21/25 07:34 MCH 32.5 pg (25.0-34.0) 08/21/25 07:34 MCHC 33.6 g/dL (32.0-36.0) 08/21/25 07:34 RDW Std Deviation 41.0 fL (36.4-46.3) 08/21/25 07:34 RDW Coeff of Maggie 11.6 % (11.5-14.5) 08/21/25 07:34 Plt Count 263 K/uL (130-400) 08/21/25 07:34 MPV 9.7 fL (9.4-12.4) 08/21/25 07:34 Immature Gran % (Auto) 0.3 % 08/17/25 14:24 Neut % (Auto) 81.0 % 08/17/25 14:24 Lymph % (Auto) 10.3 % 08/17/25 14:24 Emanuel % (Auto) 8.0 % 08/17/25 14:24 Eos % (Auto) 0.1 % 08/17/25 14:24 Baso % (Auto) 0.3 % 08/17/25 14:24 Neut # (Auto) 7.17 K/uL (1.40-6.50) H 08/17/25 14:24 Lymph # (Auto) 0.91 K/uL (1.20-3.40) L 08/17/25 14:24 Emanuel # (Auto) 0.71 K/uL (0.11-0.59) H 08/17/25 14:24 Eos # (Auto) 0.01 K/uL (0.00-0.50) 08/17/25 14:24 Baso # (Auto) 0.03 K/uL (0.00-0.20) 08/17/25 14:24 Immature Gran # (Auto) 0.03 K/uL (0.01-0.20) 08/17/25 14:24 Sodium 139 mmol/L (136-145) 08/21/25 07:36 Potassium 3.4 mmol/L (3.5-5.1) L 08/21/25 07:36 Chloride 104 mmol/L (98-107) 08/21/25 07:36 Carbon Dioxide 26 mmol/L (21-32) 08/21/25 07:36 Anion Gap 9 (3-11) 08/21/25 07:36 BUN 9 mg/dl (6-23) 08/21/25 07:36 Creatinine 0.66 mg/dl (0.6-1.2) 08/21/25 07:36 Est Cr Clr Drug Dosing 61.3 ml/min 08/21/25 07:36 eGFR 90.29 08/21/25 07:36 BUN/Creatinine Ratio 13.6 (10-20) 08/21/25 07:36 Glucose 110 mg/dl (70-99(Fasting)) H 08/21/25 07:36 Calcium 9.1 mg/dl (8.6-10.3) 08/21/25 07:36 Phosphorus 4.0 mg/dl (2.5-4.9) D 08/21/25 07:36 Magnesium 1.8 mg/dl (1.7-2.4) 08/21/25 07:36 Total Bilirubin 0.7 mg/dl (0.2-1.0) 08/17/25 14:24 AST 29 U/L (13-39) 08/17/25 14:24 ALT 25 U/L (7-52) 08/17/25 14:24 Alkaline Phosphatase 83 U/L (34-104) 08/17/25 14:24 Troponin I High Sens 8.5 pg/ml (0-14) 08/17/25 14:24 Total Protein 7.6 gm/dl (6.0-8.3) 08/17/25 14:24 Albumin 4.2 gm/dl (3.4-5.0) 08/17/25 14:24 Globulin 3.4 gm/dl (2.5-4.0) 08/17/25 14:24 Albumin/Globulin Ratio 1.2 (0.9-2) 08/17/25 14:24 Lipase 25 U/L (11-82) 08/17/25 14:24 Urine Color Yellow 08/17/25 16:30 Urine Appearance Clear (Clear) 08/17/25 16:30 Urine pH >= 9.0 (4.5-7.5) H 08/17/25 16:30 Ur Specific [place] 1.019 (1.000-1.030) 08/17/25 16:30 Urine Protein Negative (Negative) 08/17/25 16:30 Urine Glucose (UA) Negative (Negative) 08/17/25 16:30 Urine Ketones Trace (Negative) H 08/17/25 16:30 Urine Blood Negative (Negative) 08/17/25 16:30 Urine Nitrite Negative (Negative) 08/17/25 16:30 Urine Bilirubin Negative (Negative) 08/17/25 16:30 Urine Urobilinogen Negative (Negative) 08/17/25 16:30 Ur Leukocyte Esterase Trace (Negative) H 08/17/25 16:30 Urine WBC (Auto) 0-5 /hpf (0-5) 08/17/25 16:30 Urine RBC (Auto) 0-2 /hpf (0-2) 08/17/25 16:30 U Hyaline Cast (Auto) 0-2 /lpf (0-2) 08/17/25 16:30 U Epithel Cells (Auto) 0-2 /hpf (0-2) 08/17/25 16:30 Urine Bacteria (Auto) None Seen (None Seen) 08/17/25 16: Urine Comment 08/17/25 16:30 Hepatitis C Ab Screen Negative (Negative) 08/17/25 14:24 Impressions KUB X-Ray 08/21/25 01:48 EXAM: XR KUB/Abdomen 1 view CLINICAL HISTORY: abd pain nv TECHNIQUE: X-ray images of the abdomen were obtained in supine and upright positions. COMPARISON: 15:04:00 CERTIFIED NURSE OPERATING ROOM. FINDINGS: Gas Pattern: Contrast noted in the large bowel. Gas pattern within the abdomen is normal. No evidence of bowel obstruction or distention. Soft Tissues: Soft tissues of the abdomen appear normal without evidence of masses or calcifications. Liver, spleen, and kidneys are of normal size and position. IMPRESSION: Normal abdominal X-ray. No acute abnormalities identified. No other new interval abnormality since prior study. Electronically signed by Abel Magdaleno 08-21-2025 07:21 AM Exam: CT abdomen/pelvis with IV contrast. Reason for exam: Nausea and vomiting. Possible bowel obstruction. Previous studies: CT abdomen/pelvis 08/05/2025 FINDINGS: The lower lung zones remain essentially clear. Liver again contains some most small sharply demarcated lesions compatible with stable hepatic cysts. Pancreas again contains a cylindrical low attenuation lesion in the mid body stable as compared to the previous study. Indicated this could be further evaluated with MRI study. Spleen size and architecture are unremarkable. Tiny renal cortical cysts without solid renal lesion or hydronephrosis at this time. There is abnormal fluid filled distention of the stomach. Abnormally dilated and fluid-filled small bowel is seen in the proximal jejunum. Maximum small bowel diameter approximately 4.0 cm. Again the colostomy noted in the left midabdomen with relatively decompressed colon. Findings again compatible with persistent small bowel obstruction. Some residual contrast material seen within the rectosigmoid consistent with contrast administered on the previous study. No pneumoperitoneum seen at this time. Urinary bladder moderately distended. IMPRESSION: Continuing evidence of small bowel obstruction, similar to the previous study of 08/05/2025. Some contrast is seen in the colon suggesting this is incomplete. Otherwise, no new acute findings is seen at this time. Electronically signed by Luis A Escalante 08-17-2025 4:17 PM Abdomen/Pelvis CT 08/21/25 15:57 CT ABDOMEN and PELVIS without INTRAVENOUS CONTRAST HISTORY: Abdominal pain TECHNIQUE: CT abdomen and pelvis without contrast. IV CONTRAST: None ENTERIC CONTRAST: None. COMPARISON: CT abdomen and pelvis August 18, 2025. FINDINGS: LOWER CHEST: Unchanged medical the cardiac enlargement. Mild coronary calcifications. Mild pericardial fluid LIVER: Scattered subcentimeter hypodensities are too small to characterize but likely represent cysts or hemangiomas. GALLBLADDER/BILIARY: Unremarkable gallbladder. No abnormal biliary dilatation. SPLEEN: Unremarkable. PANCREAS: Redemonstrated cystic structure in the body of the pancreas that may represent an IPMN. ADRENALS: Unremarkable. KIDNEYS: Unremarkable. No stones or hydronephrosis identified. PERITONEUM/RETROPERITONEUM. No lymphadenopathy by size criteria. No aortic aneurysm. GASTROINTESTINAL: Evidence of persistent small bowel obstruction. Compared to the prior CT, the distention of the stomach and the loops of small bowel appears to have mildly increased. Again, there is a transition point suggested in the left lower quadrant of the abdomen just anteriorly to the left psoas muscle (series 2, image 43). Also as before, enteric contrast seen within the large bowel. Redemonstrated postsurgical changes of distal colectomy with colostomy in the left lower quadrant URINARY BLADDER: Unremarkable ABDOMINAL WALL: Postsurgical changes at the midline and colostomy in the left lower quadrant REPRODUCTIVE: Status post hysterectomy BONES: No acute findings. IMPRESSION: Ongoing small bowel obstruction. Compared to the prior CT from August 17, 2025, the distention of the stomach and the loops of small bowel appears to have mildly increased suggesting worsening obstruction. Electronically signed by Zeferino Brar 08-21-2025 6:56 PM 08/17/25 14:23 CT abd pelvis IV con only Stat 08/21/25 15:57 CT Abd and Pelvis [CT abd pelvis wo con] Stat Pending Results Patient Have Any Pending Studies at Discharge: No Discharge Instructions Given to Patient (Per Discharging Provider) please refer to accompanying hospital discharge summary Total Time Total Time Spent Total Time Spent (In Minutes): 55 minutes
[2025-08-22 11:31] VITALS: BP 127/61; TEMP 98.4
[2025-08-22] MEDS: METOPROLOL TARTRATE 1 MG/ML VIAL IV SCH (12:01)
[2025-08-22 12:37] VITALS: PULSE 91
[2025-08-22 13:05] LABS: Anion Gap 13.0 (3-11); Blood Urea Nitrogen 10.0 mg/dl (6-23); Calcium 8.4 mg/dl (8.6-10.3); Carbon Dioxide 21.0 mmol/L (21-32); Chloride 106.0 mmol/L (98-107); Creatinine Clr Calc Pharmacy 78.4 ml/min; Glucose 80.0 mg/dl (70-99(Fasting)); Magnesium 1.8 mg/dl (1.7-2.4); Potassium 3.7 mmol/L (3.5-5.1); Sodium 140.0 mmol/L (136-145)
[2025-08-22] MEDS ORDERED: METOPROLOL TARTRATE 1 MG/ML VIAL IV ONE (13:07)
== END 2025-08-22 13:08 | disposition short-term general hospital (02) | DRG 389 ==
LOC: ED 13:47 → SUATTDRO 17:44 → 2S 17:44